=== PATIENT | female | born 1970 | race Caucasian/White ===

== ENCOUNTER 2017-02-15 05:47 | Outpatient (CLI) | payer OTHER ==
[~2017-02-15] VITALS: Ht 157.5 cm; Wt 122.5 kg
[~2017-02-15 05:47] MED LIST: ACET-2267 PO; ETODOLAC; HYDR-3816 PO; IBUP-1780 PO; OMEP20CA12 PO; VITAMIN D
[2017-02-15] MEDS ORDERED: OMEP40CA36 PO (10:43)
[2017-02-15] MEDS ORDERED: OXYB10TA PO (10:43)
[2017-02-15] MEDS ORDERED: CHOL20002 PO (10:43)
[2017-02-15] MEDS ORDERED: ALBU90AE IH (10:43)
[2017-02-15] MEDS ORDERED: CETI10TA17 PO (10:43)
[2017-02-15] MEDS ORDERED: FLUT9.9S NS (10:43)
== END 2017-02-15 10:51 ==
LOC: PREOP 05:47
PROVIDERS: ATTEND Surgery
DX: Z01.818 Encounter for other preprocedural examination (principal); K21.9 Gastro-esophageal reflux disease without esophagitis

== ENCOUNTER 2017-02-22 09:37 | Day surgery (SDC) | payer OTHER ==
[~2017-02-22] VITALS: Ht 157.5 cm; Wt 122.5 kg
[~2017-02-22 09:37] MED LIST changes: +ALBU90AE IH; +CETI10TA17 PO; +CHOL20002 PO; +FLUT9.9S NS; +OMEP40CA36 PO; +OXYB10TA PO
--- OUTSIDE RECORDS SUMMARY | 2017-02-22 09:41 | XMS REPORT | Continuity of Care Document ---
Author Author [facility] Address Unknown Phone Unavailable Allergies Active Description Code Type Severity Reaction Onset Reported/Identified Relationship to Patient Clinical Status Yes naproxen Drug Allergy N/A N/A 07/21/2013 Yes naproxen [id number] Drug Allergy Unknown N/A 02/15/2017 Medications There is no data. Problems Date Dx Coded Attending Type Code Diagnosis Diagnosed By 08/02/2008 FATMATA FERNANDES DO 296.33 MO DEPRESSIVE RECURRENT SEVERE W/O PSYCHOTIC BEHAVIOR 08/11/2008 FATMATA FERNANDES DO 296.30 MO DEPRESSIVE RECURRENT UNSPECIFIED 07/21/2013 FATMATA FERNANDES DO 461.0 ACUTE MAXILLARY SINUSITIS 07/21/2013 FATMATA FERNANDES DO 466.0 ACUTE BRONCHITIS 03/27/2015 GILBERT CHERRY MD Ot F17.210 NICOTINE DEPENDENCE, CIGARETTES, UNCOMPL 03/27/2015 GILBERT CHERRY MD Ot J43.9 EMPHYSEMA, UNSPECIFIED 03/27/2015 GILBERT CHERRY MD Ot K57.90 DVRTCLOS OF INTEST, PART UNSP, W/O PERF 03/27/2015 GILBERT CHERRY MD Ot K76.0 FATTY (CHANGE OF) LIVER, NOT ELSEWHERE C 03/27/2015 GILBERT CHERRY MD Ot K80.20 CALCULUS OF GALLBLADDER W/O CHOLECYSTITI 02/15/2017 NANETTE SHELL DO Ot K21.9 GASTRO-ESOPHAGEAL REFLUX DISEASE WITHOUT 02/15/2017 NANETTE SHELL DO Ot Z01.818 ENCOUNTER FOR OTHER PREPROCEDURAL EXAMIN 02/18/2017 NANETTE SHELL DO Ot K21.9 GASTRO-ESOPHAGEAL REFLUX DISEASE WITHOUT 02/18/2017 NANETTE SHELL DO Ot Z01.818 ENCOUNTER FOR OTHER PREPROCEDURAL EXAMIN Procedures There is no data. Results There is no data. Encounters ACCT No. Visit Date/Time Discharge Status Pt. Type Provider Facility Loc./Unit Complaint [id number] 07/21/2013 14:21:00 07/21/2013 23:59:59 CLS Outpatient FATMATA FERNANDES DO [id number] 02/15/2017 05:47:00 02/15/2017 10:51:00 DIS Outpatient NANETTE SHELL DO [facility] PREOP EGD [id number] 01/19/2017 13:00:00 01/19/2017 23:59:59 CLS Preadmit NANETTE SHELL DO [facility] ENDO REFLUX [id number] 03/27/2015 14:02:00 03/27/2015 23:59:59 CLS Emergency JO ANN FAUSTIN, GILBERT Ramirez [facility] ER ABD PAIN FATIGUE DARK STOOLS
[2017-02-22 09:43] VITALS: BP 145/92
[2017-02-22] MEDS ORDERED: LACTATED RINGERS 1,000 ML IV ONE (09:51)
[2017-02-22] MEDS ORDERED: MIDAZOLAM 5 MG/5 ML (VERSED) VIAL ONE (10:01)
[2017-02-22] MEDS ORDERED: proPOfol 200 MG/20 ML (DIPRIVAN) VIAL IV ONE (10:01)
--- NOTE | 2017-02-22 10:06 | Progress Note-Pre Operative ---
Pre-Operative Progress Note H&P Reviewed The H&P was reviewed, patient examined and no changes noted. Time Seen by Provider: 09:51 Date H&P Reviewed: Feb 22, 2017 Time H&P Reviewed: 09:53 Pre-Operative Diagnosis: Gastritis NANETTE SHELL DO Feb 22, 2017 10:06
[2017-02-22] MEDS ORDERED: LACTATED RINGERS 1,000 ML IV STA (10:22)
[2017-02-22] MEDS ORDERED: HURRICAINE EXT TUBE (BENZOCAINE) XX PRN (10:30)
[2017-02-22] MEDS ORDERED: LACTATED RINGERS 1,000 ML IV SCH (10:30)
[2017-02-22] MEDS ORDERED: HURRICAINE EXT TUBE (BENZOCAINE) XX ONE (10:30)
--- NOTE | 2017-02-22 10:39 | Progress Note-Post Operative ---
Post-Operative Progess Note Surgeon (s)/Commercial Pest Control Technician (s) Surgeon NANETTE SHELL DO Commercial Pest Control Technician: none Pre-Operative Diagnosis Gastritis Post-Operative Diagnosis Gastritis Hiatal Hernia ? Ulcer Procedure & Operative Findings Date of Procedure 02/22/17 Procedure Performed/Findings EGD with bx Anesthesia Type IV sedation by LIAISON INSPECTION LABORATORY ASSISTANT Estimated Blood Loss Estimated blood loss (mL): scant Specimens/Packing Specimens Removed Duodenal bx Antral Bx Bx of ??ulcer NANETTE SHELL DO Feb 22, 2017 10:39
--- NOTE | 2017-02-22 10:41 | Endoscopy Discharge Instruct ---
Endo Procedure/Findings Findings 1.: Gastritis 2.: Hiatal Hernia 3.: Gastric Ulcer (possibly) Discharge Instructions - Activity: You might feel a little sleepy until tomorrow. This is due to the medicine you received to relax you. Until tomorrow, you should: NOT drive a car, operate machinery or power tools. NOT drink any alcoholic beverages. NOT make any important decisions or sign importortant papers. Do not return to work until tomorrow, unless otherwise instructed. Resume previous activities tomorrow. Diet: Start by taking liquids. If you tolerate liquids, advance to solid food. make appointment for sometime after dario. Notify Physician - If you experience excessive bleeding, unusual abdominal pain, fever, or chest pain, contact your doctor immediately. Follow-Up: - I have received and understand the above instructions and will call my doctor if I have any further questions. Patient Signature Date Nurse Signature Other (Relationship) NANETTE SHELL DO Feb 22, 2017 10:41
[2017-02-22 10:50] VITALS: BP 127/57
[2017-02-22 11:15] VITALS: BP 125/55
[2017-02-22 11:37] VITALS: BP 125/55
[2017-02-22] MEDS ORDERED: HURRICAINE EXT TUBE (BENZOCAINE) ONE (11:43)
--- NOTE | 2017-02-22 19:27 | OPERATIVE REPORT ---
DATE OF SERVICE: PREOPERATIVE DIAGNOSIS: Gastritis. POSTOPERATIVE DIAGNOSES: 1. Gastritis. 2. Hiatal hernia. 3. Possible gastric ulcer. PROCEDURE: EGD with biopsy. SURGEON: Dr. Mike. RADIO ASSEMBLER: None. ANESTHESIA: IV sedation by PNEUMATIC JACKETER. SPECIMEN: One biopsy from the duodenum, one biopsy from the antrum, and one biopsy of a possible ulcer. BLOOD LOSS: Scant. FLUIDS: Per anesthesia. POSTOPERATIVE CONDITION: Stable. INDICATION FOR PROCEDURE: The patient is a 46-year-old female who has been getting increasing reflux symptoms, heartburn and needed a workup. FINDINGS: The patient had some gastritis, hiatal hernia, questionable ulcer. Biopsies were obtained. PROCEDURE NOTE: After informed consent was obtained, the patient was brought to the endoscopy suite, placed in the bed in the left lateral decubitus position. She was administered IV sedation. During the case, she was monitored by the PNEUMATIC JACKETER the entire time, heart rate, blood pressure and pulse ox and the scope was inserted down the mouth into the esophagus and down into the stomach. In the stomach, I saw some gastritis and erythema, pushed into the first portion of the duodenum and also a little bit of erythema here and possibly duodenitis; did a biopsy and then pulled back and got a biopsy of the antrum, then retroflexed, could see a small hiatal hernia and then saw a little almost like pinhole opening, which looks like it could have been an ulcer, did a biopsy of this area and then started slowly pulling back, pulled into the esophagus. GE junction looked good up the esophagus and esophagus looked good out of the mouth. The patient tolerated the procedure and she was recovered in the endoscopy suite. Job ID: [id number] DocumentID: [id number] Dictated Date: 02/22/2017 10:44:34 Fuse Cutter Date: 02/22/2017 16:47:02 Dictated By: NANETTE MIKE DO
== END 2017-02-22 11:30 | disposition home or self-care (01) ==
LOC: ENDO 09:37
PROVIDERS: ATTEND Surgery
DX: K29.70 Gastritis, unspecified, without bleeding (principal); K44.9 Diaphragmatic hernia without obstruction or gangrene; F17.210 Nicotine dependence, cigarettes, uncomplicated

== ENCOUNTER → 2017-04-30 | Outpatient (CLI) | payer OTHER ==
[~2017-04-30] MED LIST changes: +HYDR-34 PO; -HYDR-3816 PO
--- NOTE | 2017-04-30 09:14 | Diagnostic Imaging Report ---
INDICATION: Productive cough. TIME OF EXAM: 9:11 AM No prior studies are available for comparison. FINDINGS: The heart size is normal. There is a focal area of patchy parenchymal density along the left heart border in the left base. This may represent an area of infiltrate or atelectasis. The right lung is clear. No effusion or pneumothorax is seen. IMPRESSION: Patchy lingular infiltrate or atelectasis. Dictated by: Dictated on workstation # [id number]
== END ==
LOC: RAD 08:39
PROVIDERS: ATTEND Family Medicine
DX: R05 Cough (principal)
CPT/HCPCS: 71046

== ENCOUNTER → 2017-06-25 | Outpatient (CLI) | payer OTHER ==
--- NOTE | 2017-06-25 09:22 | Diagnostic Imaging Report ---
INDICATION: Cough and pneumonia for 3 months. Time of exam 8:46 AM Correlation is made with prior study from 04/30/2017. The heart size is normal. The lungs are clear on today's study. No infiltrates are detected. No effusion or pneumothorax is seen. There is some hyperinflation suggestive of COPD. IMPRESSION: Resolution of previously noted infiltrates. No acute feature is detected. Dictated by: Dictated on workstation # [id number]
== END ==
LOC: RAD 08:17
PROVIDERS: ATTEND Nurse Practitioner
DX: J18.9 Pneumonia, unspecified organism (principal)
CPT/HCPCS: 71046

== ENCOUNTER 2018-07-30 18:40 | Emergency (ER) | payer OTHER | END 2018-07-30 21:07 | disposition home or self-care (01) | LOC: ER 18:40 ==

== ENCOUNTER 2018-08-09 14:31 | Emergency (ER) | payer OTHER ==
[~2018-08-09] VITALS: Ht 167.6 cm; Wt 117.9 kg
[~2018-08-09 14:31] MED LIST changes: +BENZ100C18 PO; +BUDE90AE2 IH; +CEFD300C3 PO; +D-ME118S7 PO; +FLUC200T PO; +METH4TAB PO
[2018-08-09] MEDS ORDERED: RT-ALBUTEROL/IPRATROPIUM 3 ML (DUONEB) VIAL ONE (14:33)
[2018-08-09] MEDS ORDERED: RT-ALBUTEROL SULF 2.5 MG/3 ML PRE-MIX VIAL ONE (14:33)
--- NOTE | 2018-08-09 14:39 | ED Dyspnea ---
General Stated Complaint: SOA Source of Information: Patient Exam Limitations: No Limitations History of Present Illness Date Seen by Provider: Aug 09, 2018 Time Seen by Provider: 14:36 Initial Comments To ER by private vehicle from home with reports of Dyspnea. She was seen here on 07/30/18 and diagnosed with bronchitis. She reports persistent chills, wheezing shortness of breath and a productive cough. She states that she does smoke cigarettes and has several burn montesinos on her shirt. Does not wear oxygen at home. Does have a nebulizer at home but is currently inside her truck which is in the shop so she's been unable to use it Severity: Moderate Activities at Onset: None Associated Symptoms: Cough, Fever, Wheezing Allergies and Home Medications Allergies Coded Allergies: naproxen (Verified Allergy, Unknown, 07/30/18) Home Medications Acetaminophen 500 Mg Tablet, 1,000 MG PO BID, (Reported) Albuterol Sulfate 90 Mcg Aer.pow.ba, 1-2 PUFF IH PRN, (Reported) Benzonatate 100 Mg Capsule, 1-2 TAB PO TID Prescribed by: ALANA SELF on 07/30/182012 Budesonide 90 Mcg Aer.pow.ba, 90 MCG IH BID Prescribed by: ALANA SELF on 07/30/182013 Cefdinir 300 Mg Capsule, 300 MG PO BID Prescribed by: ALANA SELF on 07/30/182012 Cetirizine HCl 10 Mg Tablet, 10 MG PO DAILY, (Reported) Cholecalciferol (Vitamin D3) 2,000 Unit Capsule, 2,000 UNIT PO DAILY, (Reported) D-Methorphan Hb/Prometh HCl 118 Ml Syrup, 1-2 TSP PO Q4H Prescribed by: ALANA SELF on 07/30/182012 Fluconazole 200 Mg Tablet, 200 MG PO DAILY Prescribed by: AALNA SELF on 07/30/182012 Fluticasone Propionate 9.9 Ml Zapata.susp, 1 SPRAY NS DAILY, (Reported) Fluticasone Propionate 9.9 Ml Zapata.susp, 2 SPRAYS NS BID Prescribed by: ALANA SELF on 07/30/182012 Hydrocodone Bit/Acetaminophen 1 Each Tablet, 1 EACH PO Q6H Prescribed by: GILBERT CHERRY on 03/27/15 1612 Hydrocodone/Acetaminophen 1 Each Tablet, 1 TAB PO Q8H PRN for COUGH Prescribed by: ZELALEM FRANKLIN on 08/09/181546 Ibuprofen 800 Mg Tablet, 800 MG PO Q12H PRN for PAIN, (Reported) Methylprednisolone 4 Mg Tab.ds.pk, 4 MG PO UD Prescribed by: ALANA SELF on 07/30/182012 Omeprazole 20 Mg Capsule.dr, 40 MG PO BID, (Reported) Omeprazole 40 Mg Capsule.dr, 40 MG PO DAILY, (Reported) Oxybutynin Chloride 10 Mg Tab.er.24, 10 MG PO DAILY, (Reported) Prednisone 10 Mg Tab.ds.pk, 10 MG PO DAILY Take 6 tabs(60mg)daily,decrease by 1 tab(10MG)daily. Prescribed by: ZELALEM FRANKLIN on 08/09/181546 Patient Home Medication List Home Medication List Reviewed: Yes Review of Systems Review of Systems Constitutional: see HPI, chills, fever EENTM: see HPI Respiratory: see HPI, cough, dyspnea on exertion, short of breath, wheezing Cardiovascular: no symptoms reported Genitourinary: no symptoms reported Musculoskeletal: no symptoms reported Skin: no symptoms reported Psychiatric/Neurological: No Symptoms Reported Past Dtgmqni-Hrprir-Hhwqaz Hx Patient Social History Type Used: Cigarettes Recent Foreign Travel: No Contact w/Someone Who Travel: No Recent Hopitalizations: No Seasonal Allergies Seasonal Allergies: Yes Past Medical History Surgeries: Yes (HYST/BSO 1999) Gallbladder, Hysterectomy, Oophorectomy Respiratory: Yes Pneumonia, Chronic Bronchitis Cardiac: Yes (MURMUR SINCE ) Heart Murmur Neurological: Yes Headaches /Migraines Reproductive Disorders: Yes SURFACE HYDROLOGIST History: Hysterectomy Sexually Transmitted Disease: Yes (HX HERPES) HIV/AIDS: No Genitourinary: Yes Bladder Infection Gastrointestinal: Yes Gastroesophageal Reflux Musculoskeletal: Yes Arthritis Endocrine: Yes (OBESITY) HEENT: No Loss of Vision: Bilateral Cancer: Yes Ovarian Did You Recieve Any Treatments: Yes What Type of Treatment Did You: Surgical Intervention Psychosocial: No Integumentary: No Blood Disorders: No Adverse Reaction/Blood Tranf: No (N/A) Physical Exam Vital Signs Vital Signs - First Documented 08/09/18 14:33 Temp 95.6 Pulse 82 Resp 18 B/P (MAP) 137/78 (97) Pulse Ox 93 O2 Delivery Room Air Capillary Refill : Height, Weight, BMI Height: 5'2.00" Weight: 270lbs. 0.0oz. 122.296013mw; 49.4 BMI Method:Stated General Appearance: No Apparent Distress, WD/WN, Obese, Other (oxygen saturation 93% on room air on arrival to ER.) HEENT: PERRL/EOMI Respiratory: No Accessory Muscle Use, No Respiratory Distress, Decreased Breath Sounds, Wheezing Cardiovascular: Regular Rate, Rhythm, Normal Peripheral Pulses Gastrointestinal: Normal Bowel Sounds, Non Tender, Soft Extremity: Normal Capillary Refill, Normal Inspection Neurologic/Psychiatric: Alert, Oriented x3 Skin: Normal Color, Warm/Dry Progress/Results/Core Measures Results/Orders Lab Results Laboratory Tests Test 08/09/18 14:38 Range/Units White Blood Count 10.1 4.3-11.0 10^3/uL Red Blood Count 4.60 4.35-5.85 10^6/uL Hemoglobin 15.8 11.5-16.0 G/DL Hematocrit 48 35-52 % Mean Corpuscular Volume 104 H 80-99 FL Mean Corpuscular Hemoglobin 34 25-34 PG Mean Corpuscular Hemoglobin Concent 33 32-36 G/DL Red Cell Distribution Width 17.3 H 10.0-14.5 % Platelet Count 151 130-400 10^3/uL Mean Platelet Volume 9.9 7.4-10.4 FL Neutrophils (%) (Auto) 61 42-75 % Lymphocytes (%) (Auto) 30 12-44 % Monocytes (%) (Auto) 7 0-12 % Eosinophils (%) (Auto) 2 0-10 % Basophils (%) (Auto) 0 0-10 % Neutrophils # (Auto) 6.2 1.8-7.8 X 10^3 Lymphocytes # (Auto) 3.0 1.0-4.0 X 10^3 Monocytes # (Auto) 0.7 0.0-1.0 X 10^3 Eosinophils # (Auto) 0.2 0.0-0.3 10^3/uL Basophils # (Auto) 0.0 0.0-0.1 10^3/uL Sodium Level 140 135-145 MMOL/L Potassium Level 3.7 3.6-5.0 MMOL/L Chloride Level 103 98-107 MMOL/L Carbon Dioxide Level 29 21-32 MMOL/L Anion Gap 8 5-14 MMOL/L Blood Urea Nitrogen 6 L 7-18 MG/DL Creatinine 0.83 0.60-1.30 MG/DL Estimat Glomerular Filtration Rate > 60 BUN/Creatinine Ratio 7 Glucose Level 83 70-105 MG/DL Calcium Level 9.9 8.5-10.1 MG/DL Corrected Calcium 9.8 8.5-10.1 MG/DL Total Bilirubin 0.4 0.1-1.0 MG/DL Aspartate Amino Transf (AST/SGOT) 15 5-34 U/L Alanine Aminotransferase (ALT/SGPT) 22 0-55 U/L Alkaline Phosphatase 81 40-136 U/L Total Protein 7.7 6.4-8.2 GM/DL Albumin 4.1 3.2-4.5 GM/DL My Orders Orders - ZELALEM FRANKLIN VENDOR MANAGEMENT CONSULTANT Cbc With Automated Diff (08/09/18 14:35) Comprehensive Metabolic Panel (08/09/18 14:35) Chest 1 View, Ap/Pa Only (08/09/18 14:35) Albuterol/Ipra Inhalation Soln (Duoneb I (08/09/18 14:45) Svn Small Volume Nebulizer (08/09/18 14:35) Albuterol Pre-Mix Nebs (Rt) (Proventil (08/09/18 14:45) Svn Small Volume Nebulizer (08/09/18 14:35) Hydrocodone/Apap 5/325 Tablet (Lortab 5 (08/09/18 15:15) Medications Given in ED Current Medications Medications Dose Ordered Sig/Carlos Route Start Time Stop Time Status Last Admin Dose Admin Acetaminophen/ Hydrocodone Bitart 1 tab ONCE ONCE PO 08/09/18 15:15 08/09/18 15:16 DC 08/09/18 15:09 1 TAB Albuterol/ Ipratropium 3 ml ONCE ONCE INH 08/09/18 14:45 08/09/18 14:46 DC 08/09/18 14:42 3 ML Vital Signs/I&O 08/09/18 08/09/18 14:33 14:45 Temp 95.6 Pulse 82 Resp 18 B/P (MAP) 137/78 (97) Pulse Ox 93 91 O2 Delivery Room Air Room Air Departure Communication (Admissions) 0757-patient feels as though she is breathing easier after a DuoNeb and 2 albuterol, however oxygen saturation has dropped from 93% to 89%Room air, post breathing treatment. Discussed with her admission for observation and supplemental oxygen as well as breathing treatments. She states she would much rather go home as it would be logistically troubling to be admitted to the hospital while caring for her grandkids. She is still on Omnicef 300 mg twice a day, I'll restart a steroid taper, she states she can go by the [employer] body shop and get the nebulizer out of her car. Impression Primary Impression: COPD with exacerbation Disposition: AGAINST MEDICAL ADVICE Condition: Against Medical Advice Departure-Patient Inst. Decision time for Depature: 15:44 Referrals: NO,LOCAL PHYSICIAN (PCP/Family) Primary Care Physician Patient Instructions: Chronic Obstructive Pulmonary Disease (COPD), Including Emphysema Add. Discharge Instructions: 1. Use your nebulizer every 4 hours for the next few days. Return to ER for any worsening such as fevers increasing shortness of breath. Call your family doctor tomorrow to make an appointment to be seen later this week for recheck. Scripts Hydrocodone/Acetaminophen (Kennett 5-325 Tablet) 1 Each Tablet 1 TAB PO Q8H PRN for COUGH MDD 10 TABS for 7 Days, #10 TAB Prov: ZELALEM FRANKLIN APRN 08/09/18 Prednisone (Prednisone) 10 Mg Tab.ds.pk 10 MG PO DAILY, #21 EA Take 6 tabs(60mg)daily,decrease by 1 tab(10MG)daily. Prov: ZELALEM FRANKLIN APRN 08/09/18 ZELALEM FRANKLIN APRN Aug 09, 2018 14:39
[2018-08-09] MEDS ORDERED: RT-ALBUTEROL SULF 2.5 MG/3 ML PRE-MIX VIAL INH SCH (14:45)
[2018-08-09] MEDS ORDERED: RT-ALBUTEROL/IPRATROPIUM 3 ML (DUONEB) VIAL INH ONE (14:45)
[2018-08-09 14:49] LABS: BASOPHILS % (AUTO) 0 % (0-10); EOSINOPHILS # (AUTO) 0.2 10^3/uL (0.0-0.3); EOSINOPHILS % (AUTO) 2 % (0-10); HEMATOCRIT 48 % (35-52); HEMOGLOBIN 15.8 G/DL (11.5-16.0); LYMPHOCYTES % (AUTO) 30 % (12-44); MEAN CORPUSCULAR HEMOGLOBIN 34 PG (25-34); MEAN CORPUSCULAR HGB CONC 33 G/DL (32-36); MEAN CORPUSCULAR VOLUME 104 FL (80-99); MEAN PLATELET VOLUME 9.9 FL (7.4-10.4); MONOCYTES # (AUTO) 0.7 X 10^3 (0.0-1.0); MONOCYTES % (AUTO) 7 % (0-12); NEUTROPHILS # (AUTO) 6.2 X 10^3 (1.8-7.8); NEUTROPHILS % (AUTO) 61 % (42-75); PLATELET COUNT 151 10^3/uL (130-400); RED CELL DISTRIBUTION WIDTH 17.3 % (10.0-14.5); WHITE BLOOD COUNT 10.1 10^3/uL (4.3-11.0)
[2018-08-09 15:03] LABS: ALANINE AMINOTRANSFERASE 22 U/L (0-55); ALBUMIN 4.1 GM/DL (3.2-4.5); ALKALINE PHOSPHATASE 81 U/L (40-136); BILIRUBIN,TOTAL 0.4 MG/DL (0.1-1.0); BUN/CREATININE RATIO 7; CALCIUM 9.9 MG/DL (8.5-10.1); CARBON DIOXIDE 29 MMOL/L (21-32); CHLORIDE 103 MMOL/L (98-107); CREATININE SERUM 0.83 MG/DL (0.60-1.30); GFR ESTIMATED > 60; GLUCOSE 83 MG/DL (70-105); POTASSIUM 3.7 MMOL/L (3.6-5.0); SODIUM 140 MMOL/L (135-145); TOTAL PROTEIN 7.7 GM/DL (6.4-8.2)
--- NOTE | 2018-08-09 15:09 | Diagnostic Imaging Report ---
INDICATION: Cough. TIME OF EXAM: 2:47 p.m. COMPARISON: Correlation is made with prior study of 07/30/2018. The heart size is normal. The pulmonary vascularity is unremarkable. The lungs are clear. No infiltrate, effusion or pneumothorax is detected. IMPRESSION: No acute cardiopulmonary process is detected. Dictated by: Dictated on workstation # [id number]
[2018-08-09] MEDS ORDERED: HYDROcodone/APAP 5 MG/325 MG (LORTAB) TAB PO ONE (15:15)
--- NOTE | 2018-08-09 15:40 | NUR ---
pt spo2 on room air 88 percent pt placed on 2 L spo2 increased to 92 percent. Beka Jacques APRN notified pt of admission, pt declined admission due to person issues. RN encouraged pt to stay. pt strongly against. PBates FOXER in room.
[2018-08-09] MEDS ORDERED: PRED10TA22 PO (15:47)
[2018-08-09] MEDS ORDERED: HYDR-4226 PO (15:47)
[2018-08-09 15:52] VITALS: BP 137/78
--- NOTE | 2018-08-09 15:55 | NUR ---
pt ambulatory to home, sob and cough with ambulation
--- OUTSIDE RECORDS SUMMARY | 2018-08-09 20:11 | XMS REPORT | Clinical Summary ---
Author Author [facility] Organization [facility] Address Unknown Phone Unavailable Care Team Providers Care Spin Tank Tender Name Role Phone PCP Unavailable Allergies Not on File Current Medications Not on file Active Problems Not on file Social History Tobacco Use Types Packs/Day Years Used Date Never Assessed Sex Assigned at Date Recorded Not on file Last Filed Vital Signs Not on file Plan of Treatment Not on file Results Not on filefrom Last 3 Months
--- OUTSIDE RECORDS SUMMARY | 2018-08-09 20:11 | XMS REPORT | Continuity of Care Document ---
Author Organization Unknown Address Unknown Allergies Active Description Code Type Severity Reaction Onset Reported/Identified Relationship to Patient Clinical Status Yes naproxen Drug Allergy N/A N/A 07/21/2013 Yes naproxen [id number] Drug Allergy Unknown N/A 07/30/2018 Medications There is no data. Problems Date Dx Coded Attending Type Code Diagnosis Diagnosed By 08/02/2008 FATMATA FERNANDES DO 296.33 MO DEPRESSIVE RECURRENT SEVERE W/O PSYCHOTIC BEHAVIOR 08/11/2008 FATMATA FERNANDES DO 296.30 MO DEPRESSIVE RECURRENT UNSPECIFIED 07/21/2013 FATMATA FERNANDES DO 461.0 ACUTE MAXILLARY SINUSITIS 07/21/2013 FATMATA FERNANDES DO 466.0 ACUTE BRONCHITIS 03/27/2015 JO ANN FAUSTIN, GILBERT Ramirez Ot F17.210 NICOTINE DEPENDENCE, CIGARETTES, UNCOMPL 03/27/2015 JO ANN FAUSTIN, GILBERT Ramirez Ot J43.9 EMPHYSEMA, UNSPECIFIED 03/27/2015 GILBERT CHERRY MD Ot K57.90 DVRTCLOS OF INTEST, PART UNSP, W/O PERF 03/27/2015 GILBERT CHERRY MD Ot K76.0 FATTY (CHANGE OF) LIVER, NOT ELSEWHERE C 03/27/2015 GILBERT CHERRY MD Ot K80.20 CALCULUS OF GALLBLADDER W/O CHOLECYSTITI 02/15/2017 NANETTE SHELL DO B Ot K21.9 GASTRO-ESOPHAGEAL REFLUX DISEASE WITHOUT 02/15/2017 ZENA SHELL DOIC B Ot Z01.818 ENCOUNTER FOR OTHER PREPROCEDURAL EXAMIN 02/18/2017 ZENA SHELL DOIC B Ot K21.9 GASTRO-ESOPHAGEAL REFLUX DISEASE WITHOUT 02/18/2017 ZENA SHELL DOIC B Ot Z01.818 ENCOUNTER FOR OTHER PREPROCEDURAL EXAMIN 02/21/2017 NANETTE SHELL DO B Ot K21.9 GASTRO-ESOPHAGEAL REFLUX DISEASE WITHOUT 02/21/2017 ZENA SHELL DOIC B Ot Z01.818 ENCOUNTER FOR OTHER PREPROCEDURAL EXAMIN 02/22/2017 NANETTE SHELL DO Ot F17.210 NICOTINE DEPENDENCE, CIGARETTES, UNCOMPL 02/22/2017 NANETTE SHELL DO Ot K29.70 GASTRITIS, UNSPECIFIED, WITHOUT BLEEDING 02/22/2017 NANETTE SHELL DO Ot K44.9 DIAPHRAGMATIC HERNIA WITHOUT OBSTRUCTION 05/03/2017 RADHA FAUSTIN, KELLEN J Ot R05 COUGH 06/28/2017 KIMBERLEY SORTO IMPROVEMENT DIRECTOR-DRAGGER Ot J18.9 PNEUMONIA, UNSPECIFIED ORGANISM 07/01/2017 KIMBERLEY SORTO IMPROVEMENT DIRECTOR-DRAGGER Ot J18.9 PNEUMONIA, UNSPECIFIED ORGANISM 08/26/2017 RADHA FAUSTIN, KELLEN J Ot R05 COUGH 08/26/2017 KIMBERLEY SORTO IMPROVEMENT DIRECTOR-DRAGGER Ot J18.9 PNEUMONIA, UNSPECIFIED ORGANISM 11/05/2017 RADHA FAUSTIN, KELLEN J Ot R05 COUGH 11/05/2017 KIMBERLEY SORTO IMPROVEMENT DIRECTOR-DRAGGER Ot J18.9 PNEUMONIA, UNSPECIFIED ORGANISM 07/30/2018 ALANA SELF DO Ot E66.9 OBESITY, UNSPECIFIED 07/30/2018 FRANSISCO SELF DOA K Ot F17.210 NICOTINE DEPENDENCE, CIGARETTES, UNCOMPL 07/30/2018 ALANA SELF DO Ot G43.909 MIGRAINE, UNSP, NOT INTRACTABLE, WITHOUT 07/30/2018 FRANSISCO SELF DOA K Ot J06.9 ACUTE UPPER RESPIRATORY INFECTION, UNSPE 07/30/2018 ALANA SELF DO Ot J43.9 EMPHYSEMA, UNSPECIFIED 07/30/2018 ALANA SELF DO Ot K21.9 GASTRO-ESOPHAGEAL REFLUX DISEASE WITHOUT 07/30/2018 FRANSISCO SELF DOA Annelise Ot R06.02 SHORTNESS OF BREATH 07/30/2018 FRANSISCO SELF DOA Annelise Ot Z68.42 BODY MASS INDEX (BMI) 45.0-49.9, ADULT 07/30/2018 FRANSISCO SELF DOA Annelise Ot Z79.51 MANAGER OF SUSTAINABILITY (CURRENT) USE OF INHALED STERO 07/30/2018 ALANA SELF DO Ot Z79.52 MANAGER OF SUSTAINABILITY (CURRENT) USE OF SYSTEMIC STER 07/30/2018 ALANA SELF DO Ot Z85.43 PERSONAL HISTORY OF MALIGNANT NEOPLASM O [facility]/30[facility] PERSONAL HISTORY OF OTHER INFECTIOUS AND 07/30/2018 [facility] Z87.01 PERSONAL HISTORY OF PNEUMONIA (RECURRENT 07/30/2018 [facility] Z87.448 PERSONAL HISTORY OF OTHER DISEASES OF UR 07/30/2018 [facility] Z88.8 ALLERGY STATUS TO OTH DRUG/MEDS/BIOL SUB 07/30/2018 [facility] ALANA SHELTON Ot Z90.710 ACQUIRED ABSENCE OF BOTH CERVIX AND UTER 07/30/2018 [facility] Z98.890 OTHER SPECIFIED POSTPROCEDURAL STATES 08/04/2018 ALANA SELF DO Ot E66.9 OBESITY, UNSPECIFIED 08/04/2018 [facility] F17.210 NICOTINE DEPENDENCE, CIGARETTES, UNCOMPL 08/04/2018 [facility] G43.909 MIGRAINE, UNSP, NOT INTRACTABLE, WITHOUT 08/04/2018 [facility] J06.9 ACUTE UPPER RESPIRATORY INFECTION, UNSPE 08/04/2018 [facility] J43.9 EMPHYSEMA, UNSPECIFIED 08/04/2018 [facility] K21.9 GASTRO-ESOPHAGEAL REFLUX DISEASE WITHOUT 08/04/2018 [facility] R06.02 SHORTNESS OF BREATH 08/04/2018 [facility] Z68.42 BODY MASS INDEX (BMI) 45.0-49.9, ADULT 08/04/2018 [facility] ALANA SHELTON Ot Z79.51 MANAGER OF SUSTAINABILITY (CURRENT) USE OF INHALED STERO 08/04/2018 [facility] ALANA SHELTON Ot Z79.52 MANAGER OF SUSTAINABILITY (CURRENT) USE OF SYSTEMIC STER 08/04/2018 [facility] Z85.43 PERSONAL HISTORY OF MALIGNANT NEOPLASM O 08/04/2018 [facility] Z86.19 PERSONAL HISTORY OF OTHER INFECTIOUS AND 08/04/2018 [facility] Z87.01 PERSONAL HISTORY OF PNEUMONIA (RECURRENT 08/04/2018 [facility] Ot Z87.448 PERSONAL HISTORY OF OTHER DISEASES OF UR 08/04/2018 ALANA SELF DO Ot Z88.8 ALLERGY STATUS TO OTH DRUG/MEDS/BIOL SUB 08/04/2018 ALANA SELF DO Ot Z90.710 ACQUIRED ABSENCE OF BOTH CERVIX AND UTER 08/04/2018 ALANA SELF DO Ot Z98.890 OTHER SPECIFIED POSTPROCEDURAL STATES Procedures There is no data. Results Test Result Range Complete urinalysis with reflex to culture - 07/30/18 18:57 Urine color determination YELLOW NRG Urine clarity determination CLEAR NRG Urine pH measurement by test strip 6 5-9 Specific gravity of urine by test strip 1.005 1.016-1.022 Urine protein assay by test strip, semi-quantitative NEGATIVE NEGATIVE Urine glucose detection by automated test strip NEGATIVE NEGATIVE Erythrocytes detection in urine sediment by light microscopy 1+ NEGATIVE Urine ketones detection by automated test strip NEGATIVE NEGATIVE Urine nitrite detection by test strip NEGATIVE NEGATIVE Urine total bilirubin detection by test strip NEGATIVE NEGATIVE Urine urobilinogen measurement by automated test strip (mass/volume) NORMAL NORMAL Urine leukocyte esterase detection by dipstick NEGATIVE NEGATIVE Automated urine sediment erythrocyte count by microscopy (number/high power field) NONE NRG Automated urine sediment leukocyte count by microscopy (number/high power field) NONE NRG Bacteria detection in urine sediment by light microscopy NEGATIVE NRG Squamous epithelial cells detection in urine sediment by light microscopy 2-5 NRG Crystals detection in urine sediment by light microscopy NONE NRG Casts detection in urine sediment by light microscopy NONE NRG Mucus detection in urine sediment by light microscopy NEGATIVE NRG Complete urinalysis with reflex to culture CULTURE PENDING NRG Bacterial urine culture - 07/30/18 18:57 Bacterial urine culture [id number] NRG COLONY COUNT PREDOMINANCE NRG FTX;REPORTABLE SUSCEPTIBILITY REPORTED 08-01-18, 1105. [facility] Sensitivity Panel - 07/30/18 18:57 Gentamicin susceptibility test by minimum inhibitory concentration <= NRG Trimethoprim/sulfamethoxazole susceptibility test by minimum inhibitoryconcentration <= NRG Levofloxacin susceptibility test by minimum inhibitory concentration <= NRG Ampicillin susceptibility test by minimum inhibitory concentration <= NRG Cefazolin susceptibility test by minimum inhibitory concentration <= NRG Ceftriaxone susceptibility test by minimum inhibitory concentration <= NRG Ciprofloxacin susceptibility test by minimum inhibitory concentration <= NRG Meropenem susceptibility test by minimum inhibitory concentration <= NRG Nitrofurantoin susceptibility test by minimum inhibitory concentration <= NRG Amoxicillin and clavulanate potassium [facility] <= NRG Complete blood count (CBC) with automated white blood cell (WBC) differential - 07/30/18 19:00 Blood leukocytes automated count (number/volume) 10.2 10*3/uL 4.3-11.0 Blood erythrocytes automated count (number/volume) 4.31 10*6/uL 4.35-5.85 Venous blood hemoglobin measurement (mass/volume) 14.9 g/dL 11.5-16.0 Blood hematocrit (volume fraction) 44 % 35-52 Automated erythrocyte mean corpuscular volume 101 [foz_us] 80-99 Automated erythrocyte mean corpuscular hemoglobin (mass per erythrocyte) 35 pg 25-34 Automated erythrocyte mean corpuscular hemoglobin concentration measurement (mass/volume) 34 g/dL 32-36 Automated erythrocyte distribution width ratio 16.1 % 10.0- 14.5 Automated blood platelet count (count/volume) 168 10*3/uL 130-400 Automated blood platelet mean volume measurement 10.0 [foz_us] 7.4-10.4 Automated blood neutrophils/100 leukocytes 60 % 42-75 Automated blood lymphocytes/100 leukocytes 30 % 12-44 Blood monocytes/100 leukocytes 8 % 0-12 Automated blood eosinophils/100 leukocytes 2 % 0-10 Automated blood basophils/100 leukocytes 0 % 0-10 Blood neutrophils automated count (number/volume) 6.1 10*3 1.8-7.8 Blood lymphocytes automated count (number/volume) 3.0 10*3 1.0-4.0 Blood monocytes automated count (number/volume) 0.8 10*3 0.0- 1.0 Automated eosinophil count 0.2 10*3/uL 0.0-0.3 Automated blood basophil count (count/volume) 0.0 10*3/uL 0.0-0.1 Blood lactic acid measurement (moles/volume) - 07/30/18 19:00 Blood lactic acid measurement (moles/volume) 1.24 mmol/L 0.50- 2.00 PT panel in platelet poor plasma by coagulation assay - 07/30/18 19:00 Prothrombin time (PT) in platelet poor plasma by coagulation assay 13.0 s 12.2-14.7 INR in platelet poor plasma or blood by coagulation assay 0.9 0.8-1.4 Activated partial thromboplastin time (aPTT) in platelet poor plasma bycoagulation assay - 07/30/18 19:00 Activated partial thromboplastin time (aPTT) in platelet poor plasma bycoagulation assay 31 s 24-35 Comprehensive metabolic panel - 07/30/18 19:00 Serum or plasma sodium measurement (moles/volume) 140 mmol/L 135-145 Serum or plasma potassium measurement (moles/volume) 3.8 mmol/L 3.6-5.0 Serum or plasma chloride measurement (moles/volume) 103 mmol/L 98-107 Carbon dioxide 24 mmol/L 21-32 Serum or plasma anion gap determination (moles/volume) 13 mmol/L 5-14 Serum or plasma urea nitrogen measurement (mass/volume) 9 mg/dL 7-18 Serum or plasma creatinine measurement (mass/volume) 0.89 mg/dL 0.60-1.30 Serum or plasma urea nitrogen/creatinine mass ratio 10 NRG Serum or plasma creatinine measurement with calculation of estimated glomerular filtration rate > NRG Serum or plasma glucose measurement (mass/volume) 85 mg/dL 70-105 Serum or plasma calcium measurement (mass/volume) 9.7 mg/dL 8.5-10.1 Serum or plasma total bilirubin measurement (mass/volume) 0.5 mg/dL 0.1-1.0 Serum or plasma alkaline phosphatase measurement (enzymatic activity/volume) 100 U/L 40-136 Serum or plasma aspartate aminotransferase measurement (enzymatic activity/volume) 18 U/L 5-34 Serum or plasma alanine aminotransferase measurement (enzymatic activity/volume) 20 U/L 0-55 Serum or plasma protein measurement (mass/volume) 7.7 g/dL 6.4-8.2 Serum or plasma albumin measurement (mass/volume) 4.0 g/dL 3.2-4.5 CALCIUM CORRECTED 9.7 mg/dL 8.5-10.1 Bacterial blood culture - 07/30/18 19:00 Bacterial blood culture [facility] Influenza virus A and B antigen detection - 07/30/18 19:14 FLU RESULT NEGATIVE FOR INFLUENZA A AND B ANTIGENS BY IA [facility] Bacterial blood culture - 07/30/18 19:15 Bacterial blood culture NG [facility] Sputum Gram stain - 07/30/18 21:05 Sputum Gram stain [id number]. [facility] Bacterial sputum culture - 05/25/19 21:05 QUANTITY OF GROWTH . [facility] Bacterial sputum culture USUAL RESP G Complete blood count (CBC) with automated white blood cell (WBC) differential - 08/09/18 14:38 Blood leukocytes automated count (number/volume) 10.1 10*3/uL 4.3-11.0 Blood erythrocytes automated count (number/volume) 4.60 10*6/uL 4.35-5.85 Venous blood hemoglobin measurement (mass/volume) 15.8 g/dL 11.5-16.0 Blood hematocrit (volume fraction) 48 % 35-52 Automated erythrocyte mean corpuscular volume 104 [foz_us] 80-99 Automated erythrocyte mean corpuscular hemoglobin (mass per erythrocyte) 34 pg 25-34 Automated erythrocyte mean corpuscular hemoglobin concentration measurement (mass/volume) 33 g/dL 32-36 Automated erythrocyte distribution width ratio 17.3 % 10.0- 14.5 Automated blood platelet count (count/volume) 151 10*3/uL 130-400 Automated blood platelet mean volume measurement 9.9 [foz_us] 7.4-10.4 Automated blood neutrophils/100 leukocytes 61 % 42-75 Automated blood lymphocytes/100 leukocytes 30 % 12-44 Blood monocytes/100 leukocytes 7 % 0-12 Automated blood eosinophils/100 leukocytes 2 % 0-10 Automated blood basophils/100 leukocytes 0 % 0-10 Blood neutrophils automated count (number/volume) 6.2 10*3 1.8-7.8 Blood lymphocytes automated count (number/volume) 3.0 10*3 1.0-4.0 Blood monocytes automated count (number/volume) 0.7 10*3 0.0- 1.0 Automated eosinophil count 0.2 10*3/uL 0.0-0.3 Automated blood basophil count (count/volume) 0.0 10*3/uL 0.0-0.1 Comprehensive metabolic panel - 08/09/18 14:38 Serum or plasma sodium measurement (moles/volume) 140 mmol/L 135-145 Serum or plasma potassium measurement (moles/volume) 3.7 mmol/L 3.6-5.0 Serum or plasma chloride measurement (moles/volume) 103 mmol/L 98-107 Carbon dioxide 29 mmol/L 21-32 Serum or plasma anion gap determination (moles/volume) 8 mmol/L 5-14 Serum or plasma urea nitrogen measurement (mass/volume) 6 mg/dL 7-18 Serum or plasma creatinine measurement (mass/volume) 0.83 mg/dL 0.60-1.30 Serum or plasma urea nitrogen/creatinine mass ratio 7 NRG Serum or plasma creatinine measurement with calculation of estimated glomerular filtration rate > NRG Serum or plasma glucose measurement (mass/volume) 83 mg/dL 70-105 Serum or plasma calcium measurement (mass/volume) 9.9 mg/dL 8.5-10.1 Serum or plasma total bilirubin measurement (mass/volume) 0.4 mg/dL 0.1-1.0 Serum or plasma alkaline phosphatase measurement (enzymatic activity/volume) 81 U/L 40-136 Serum or plasma aspartate aminotransferase measurement (enzymatic activity/volume) 15 U/L 5-34 Serum or plasma alanine aminotransferase measurement (enzymatic activity/volume) 22 U/L 0-55 Serum or plasma protein measurement (mass/volume) 7.7 g/dL 6.4-8.2 Serum or plasma albumin measurement (mass/volume) 4.1 g/dL 3.2-4.5 CALCIUM CORRECTED 9.8 mg/dL 8.5-10.1 Encounters ACCT No. Visit Date/Time Discharge Status Pt. Type Provider Facility Loc./Unit Complaint [id number] 07/21/2013 14:21:00 07/21/2013 23:59:59 CLS Outpatient FATMATA FERNANDES DO [id number] 07/30/2018 18:40:00 07/30/2018 21:07:00 DIS Emergency ALANA SELF DO [facility] ER SOA, FEVER, CONGESTION [id number] 02/28/2018 08:15:00 02/28/2018 23:59:59 CLS Preadmit KIMBERLEY SORTO IMPROVEMENT DIRECTOR-DRAGGER [facility] RAD SCREENING [id number] 02/23/2018 13:15:00 02/23/2018 23:59:59 CLS Preadmit KIMBERLEY SORTO IMPROVEMENT DIRECTOR-DRAGGER [facility] RAD R92.2 INCONCLUSIVE MAMMO [id number] 06/25/2017 08:17:00 06/25/2017 23:59:59 CLS Outpatient KIMBERLEY SORTO IMPROVEMENT DIRECTOR-DRAGGER [facility] RAD [id number] 04/30/2017 08:39:00 04/30/2017 23:59:59 CLS Outpatient RADHA FAUSTIN, KELLEN Martinez [facility] RAD R05 [id number] 04/12/2017 08:56:00 04/12/2017 23:59:59 CLS Preadmit KIMBERLEY SORTO IMPROVEMENT DIRECTOR-DRAGGER [facility] RAD SCREENING [id number] 02/22/2017 09:37:00 02/22/2017 11:30:00 DIS Outpatient NANETTE SHELL DO [facility] ENDO REFLUX [id number] 02/15/2017 05:47:00 02/15/2017 10:51:00 DIS Outpatient NANETTE SHELL DO [facility] PREOP EGD [id number] 03/27/2015 14:02:00 03/27/2015 23:59:59 CLS Emergency GILBERT CHERRY MD [facility] ER ABD PAIN FATIGUE DARK STOOLS [id number] 08/09/2018 14:50:00 Document Registration
== END 2018-08-09 15:56 | disposition left against medical advice (07) ==
LOC: EDUNIT# 14:31 → ER 14:32
DX: J44.1 Chronic obstructive pulmonary disease with (acute) exacerbation (principal); G43.909 Migraine, unspecified, not intractable, without status migrainosus; E66.9 Obesity, unspecified; K21.9 Gastro-esophageal reflux disease without esophagitis; F17.210 Nicotine dependence, cigarettes, uncomplicated; Z88.8 Allergy status to other drugs, medicaments and biological substances; Z86.19 Personal history of other infectious and parasitic diseases; Z68.42 Body mass index [BMI] 45.0-49.9, adult; Z85.43 Personal history of malignant neoplasm of ovary; Z87.448 Personal history of other diseases of urinary system; Z79.51 Long term (current) use of inhaled steroids; Z79.52 Long term (current) use of systemic steroids; Z90.710 Acquired absence of both cervix and uterus; Z98.890 Other specified postprocedural states; Z87.01 Personal history of pneumonia (recurrent)
CPT/HCPCS: 36415; 71045; 80053; 85025; 94640

== ENCOUNTER 2019-04-22 15:21 | Inpatient (IN) | payer OTHER ==
[~2019-04-22] VITALS: Ht 157.5 cm; Wt 117.7 kg
[~2019-04-22 15:21] MED LIST changes: -D-ME118S7 PO; +HYDR-4226 PO; +OMEP-280 PO; -OMEP20CA12 PO; +OMEP40CA27 PO; -OMEP40CA36 PO; -OXYB10TA PO; +OXYB10TA2 PO; +PRED10TA22 PO; +PROM118S4 PO
--- NOTE | 2019-04-22 15:42 | ED Respiratory ---
General Stated Complaint: SOA History of Present Illness Date Seen by Provider: Apr 22, 2019 Time Seen by Provider: 15:30 Initial Comments 48-year-old female presents from [facility] [place] for bilateral pneumonia (lower lobes) that was diagnosed yesterday. She received a Rocephin injection IM yesterday and today. She is also on oral Doxycycline and Albuteral Neb treatments. SOA, SaO2 76% on RA, when arrives to room. O2 per NC adminstered at 3 L, quickly increased SaO2 to 90%. Influenza Neg at [facility]. Timing/Duration: getting worse (2-3 days) Prior Episodes/Possible Cause: occasional episodes Modifying Factors: Improves With Albuterol Nebulizer, Improves With Oxygen, Improves With Rest Associated Symptoms: chest pain/soreness, cough, nasal congestion, shortness of breath Allergies and Home Medications Allergies Coded Allergies: naproxen (Verified Allergy, Unknown, 07/30/18) Home Medications Acetaminophen 500 Mg Tablet, 1,000 MG PO BID, (Reported) Albuterol Sulfate 90 Mcg Aer.pow.ba, 1-2 PUFF IH PRN, (Reported) Benzonatate 100 Mg Capsule, 1-2 TAB PO TID Prescribed by: ALANA SELF on 07/30/182012 Budesonide 90 Mcg Aer.pow.ba, 90 MCG IH BID Prescribed by: ALANA SELF on 07/30/182013 Cefdinir 300 Mg Capsule, 300 MG PO BID Prescribed by: ALANA SELF on 07/30/182012 Cetirizine HCl 10 Mg Tablet, 10 MG PO DAILY, (Reported) Cholecalciferol (Vitamin D3) 2,000 Unit Capsule, 2,000 UNIT PO DAILY, (Reported) D-Methorphan Hb/Prometh HCl 118 Ml Syrup, 1-2 TSP PO Q4H Prescribed by: ALANA SELF on 07/30/182012 Fluconazole 200 Mg Tablet, 200 MG PO DAILY Prescribed by: ALANA SELF on 07/30/182012 Fluticasone Propionate 9.9 Ml [place].susp, 1 SPRAY NS DAILY, (Reported) Fluticasone Propionate 9.9 Ml [place].susp, 2 SPRAYS NS BID Prescribed by: ALANA SELF on 07/30/182012 Hydrocodone Bit/Acetaminophen 1 Each Tablet, 1 EACH PO Q6H Prescribed by: GILBERT CHERRY on 03/27/15 1612 Hydrocodone/Acetaminophen 1 Each Tablet, 1 TAB PO Q8H PRN for COUGH Prescribed by: ZELALEM FRANKLIN on 08/09/18 154 Ibuprofen 800 Mg Tablet, 800 MG PO Q12H PRN for PAIN, (Reported) Methylprednisolone 4 Mg Tab.ds.pk, 4 MG PO UD Prescribed by: ALANA SELF on 07/30/182012 Omeprazole 20 Mg Capsule.dr, 40 MG PO BID, (Reported) Omeprazole 40 Mg Capsule.dr, 40 MG PO DAILY, (Reported) Oxybutynin Chloride 10 Mg Tab.er.24, 10 MG PO DAILY, (Reported) Prednisone 10 Mg Tab.ds.pk, 10 MG PO DAILY Take 6 tabs(60mg)daily,decrease by 1 tab(10MG)daily. Prescribed by: ZELALEM FRANKLIN on 08/09/181546 Patient Home Medication List Home Medication List Reviewed: Yes Review of Systems Review of Systems Constitutional: no symptoms reported, see HPI Respiratory: see HPI, cough, dyspnea on exertion, phlegm, short of breath All Other Systems Reviewed Negative Unless Noted: Yes Past Ssxhcyn-Yizjvc-Gztwmc Hx Past Med/Social Hx: Reviewed Nursing Past Med/Soc Hx Patient Social History Type Used: Cigarettes Recent Hopitalizations: No Seasonal Allergies Seasonal Allergies: Yes Past Medical History Surgeries: Yes (HYST/BSO 1999) Gallbladder, Hysterectomy, Oophorectomy Respiratory: Yes Pneumonia, Chronic Bronchitis Cardiac: Yes (MURMUR SINCE ) Heart Murmur Neurological: Yes Headaches /Migraines 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 Sexually Transmitted Disease: Yes (HX HERPES) HIV/AIDS: No Genitourinary: Yes Bladder Infection Gastrointestinal: Yes Gastroesophageal Reflux Musculoskeletal: Yes Arthritis Endocrine: Yes (OBESITY) HEENT: No Loss of Vision: Bilateral Cancer: Yes Ovarian Did You Recieve Any Treatments: Yes What Type of Treatment Did You: Surgical Intervention Psychosocial: No Integumentary: No Blood Disorders: No Adverse Reaction/Blood Tranf: No (N/A) Physical Exam Vital Signs - First Documented 04/22/19 15:29 Temp 37.7 Pulse 108 Resp 24 B/P (MAP) 179/98 (125) Pulse Ox 94 O2 Delivery Nasal Cannula O2 Flow Rate 3.00 Capillary Refill : Height: 5'6.00" Weight: 260lbs. 0.0oz. 117.777901dl; 49.4 BMI Method:Estimated General Appearance: WD/WN, mild distress Eyes: Bilateral Eye Normal Inspection, Bilateral Eye PERRL, Bilateral Eye EOMI HEENT: PERRL/EOMI, normal ENT inspection, TMs normal, pharynx normal Neck: non-tender, full range of motion, supple, normal inspection Respiratory: chest non-tender, no respiratory distress, decreased breath sounds, rhonchi, wheezing Cardiovascular: normal peripheral pulses, regular rate, rhythm Gastrointestinal: normal bowel sounds, non tender, soft Neurologic/Psychiatric: no motor/sensory deficits, alert, normal mood/affect, oriented x 3 Skin: normal color, warm/dry Lymphatic: no adenopathy Focused Exam Lactate Level Lactic Acid Level Progress/Results/Core Measures Suspected Sepsis SIRS Temperature: Pulse: Respiratory Rate: Laboratory Tests 04/22/19 15:40: White Blood Count 10.3 Blood Pressure / Mean: Laboratory Tests 04/22/19 15:40: Creatinine 0.81, INR Comment 1.0, Platelet Count 156, Total Bilirubin 0.5 Results/Orders Lab Results Laboratory Tests Test 04/22/19 15:40 Range/Units White Blood Count 10.3 4.3-11.0 10^3/uL Red Blood Count 4.12 L 4.35-5.85 10^6/uL Hemoglobin 14.2 11.5-16.0 G/DL Hematocrit 43 35-52 % Mean Corpuscular Volume 105 H 80-99 FL Mean Corpuscular Hemoglobin 35 H 25-34 PG Mean Corpuscular Hemoglobin Concent 33 32-36 G/DL Red Cell Distribution Width 15.6 H 10.0-14.5 % Platelet Count 156 130-400 10^3/uL Mean Platelet Volume 10.4 7.4-10.4 FL Neutrophils (%) (Auto) 63 42-75 % Lymphocytes (%) (Auto) 29 12-44 % Monocytes (%) (Auto) 6 0-12 % Eosinophils (%) (Auto) 2 0-10 % Basophils (%) (Auto) 0 0-10 % Neutrophils # (Auto) 6.5 1.8-7.8 X 10^3 Lymphocytes # (Auto) 2.9 1.0-4.0 X 10^3 Monocytes # (Auto) 0.6 0.0-1.0 X 10^3 Eosinophils # (Auto) 0.2 0.0-0.3 10^3/uL Basophils # (Auto) 0.0 0.0-0.1 10^3/uL Prothrombin Time 13.6 12.2-14.7 SEC INR Comment 1.0 0.8-1.4 Activated Partial Thromboplast Time 32 24-35 SEC Sodium Level 142 135-145 MMOL/L Potassium Level 3.5 L 3.6-5.0 MMOL/L Chloride Level 102 98-107 MMOL/L Carbon Dioxide Level 27 21-32 MMOL/L Anion Gap 13 5-14 MMOL/L Blood Urea Nitrogen 10 7-18 MG/DL Creatinine 0.81 0.60-1.30 MG/DL Estimat Glomerular Filtration Rate > 60 BUN/Creatinine Ratio 12 Glucose Level 88 70-105 MG/DL Calcium Level 9.6 8.5-10.1 MG/DL Corrected Calcium 9.7 8.5-10.1 MG/DL Total Bilirubin 0.5 0.1-1.0 MG/DL Aspartate Amino Transf (AST/SGOT) 16 5-34 U/L Alanine Aminotransferase (ALT/SGPT) 18 0-55 U/L Alkaline Phosphatase 105 40-136 U/L Total Protein 7.4 6.4-8.2 GM/DL Albumin 3.9 3.2-4.5 GM/DL My Orders Orders - ROSETTA LOU Albuterol/Ipra Inhalation Soln (Duoneb I (04/22/19 15:45) Svn Small Volume Nebulizer (04/22/19 15:36) Methylprednisolone Sod Succ (Solu-Medrol (04/22/19 15:45) Medications Given in ED Current Medications Medications Dose Ordered Sig/Carlos Route Start Time Stop Time Status Last Admin Dose Admin Albuterol/ Ipratropium 3 ml ONCE ONCE INH 04/22/19 15:45 04/22/19 15:46 DC 04/22/19 15:44 3 ML Methylprednisolone Sodium Succinate 125 mg ONCE ONCE IVP 04/22/19 15:45 04/22/19 15:46 DC 04/22/19 15:58 125 MG Vital Signs/I&O 04/22/19 04/22/19 04/22/19 15:29 15:30 15:45 Temp 37.7 Pulse 108 Resp 24 B/P (MAP) 179/98 (125) Pulse Ox 94 95 96 O2 Delivery Nasal Cannula Nasal Cannula Nasal Cannula O2 Flow Rate 3.00 3.00 4.00 Capillary Refill : Progress Note : Time: 15:30 Progress Note Patient seen and evaluated. Will obtain a chest x-ray, DuoNeb breathing treatment, labs, oxygen per nasal cannula, Solu-Medrol 125 mg IV and continue to monitor. [address] Kay by phone, agreed with plans for admission to medical floor. Given azithromycin 500 mg IV. 1630 Continuing to require 2-3 L O2 to maintain SaO2 > 90%. Patient required 2nd duoneb treatment. 1650 patient reports to be feeling better, however aeration is still diminished bilaterally. Less coughing, but thick, brown/yellow sputum produced. Tachy 95- 110. Diagnostic Imaging Diagonstic Imaging: Xray Plain Films/CT/US/NM/MRI: chest Comments NAME: ELLEN KC [facility] REC#: [id number] PT STATUS: ADM [place] : 1970 PHYSICIAN: REBEL MARCIAL MD ADMIT DATE: 04/22/19/4TH Draft Date of Exam:04/22/19 CHEST PA/LAT (2 VIEW) INDICATION: Shortness of breath and cough. Comparison made to the previous study from August 09, 2018. FINDINGS: Lungs demonstrate no evidence of alveolar infiltrate or consolidation. The diaphragms appear flattened suggesting air trapping which may relate to underlying COPD. Heart size is appropriate. There are no findings of failure. There is no effusion or pneumothorax. IMPRESSION: 1. Pulmonary hyperinflation suggesting air trapping. Correlate for smoking history or history of COPD. 2. No findings of alveolar infiltrate or consolidation. Dictated on workstation # [id number] Dict: 04/22/19 1624 Trans: 04/22/19 1627 [facility] [id number] Interpreted by: JOHN MACHUCA MD Electronically signed by: Departure Impression Primary Impression: Pneumonia Qualified Codes: J18.1 - Lobar pneumonia, unspecified organism Additional Impressions: Hypoxia Tobacco abuse Disposition: ADMITTED INPATIENT Condition: Stable Admissions Decision to Admit Reason: Admit from ER (General) Decision to Admit/Date: Apr 22, 2019 Time/Decision to Admit Time: 15:45 Departure-Patient Inst. Referrals: NO,LOCAL PHYSICIAN (PCP/Family) Primary Care Physician ROSETTA LOU Apr 22, 2019 15:42
[2019-04-22] MEDS ORDERED: RT-ALBUTEROL/IPRATROPIUM 3 ML (DUONEB) VIAL INH ONE ×2 (15:45→16:15)
[2019-04-22] MEDS ORDERED: methylPREDNISolone 125 MG (Solu-MEDROL) VIAL IVP ONE (15:45)
[2019-04-22] MEDS ORDERED: AZITHROMYCIN INJECTION 500 MG in NS (IVPB) 250 ML IV ONE (16:00)
[2019-04-22 16:03] LABS: BASOPHILS % (AUTO) 0 % (0-10); EOSINOPHILS # (AUTO) 0.2 10^3/uL (0.0-0.3); EOSINOPHILS % (AUTO) 2 % (0-10); HEMATOCRIT 43 % (35-52); HEMOGLOBIN 14.2 G/DL (11.5-16.0); LYMPHOCYTES # (AUTO) 2.9 X 10^3 (1.0-4.0); LYMPHOCYTES % (AUTO) 29 % (12-44); MEAN CORPUSCULAR HEMOGLOBIN 35 PG (25-34); MEAN CORPUSCULAR HGB CONC 33 G/DL (32-36); MEAN CORPUSCULAR VOLUME 105 FL (80-99); MEAN PLATELET VOLUME 10.4 FL (7.4-10.4); MONOCYTES # (AUTO) 0.6 X 10^3 (0.0-1.0); MONOCYTES % (AUTO) 6 % (0-12); NEUTROPHILS # (AUTO) 6.5 X 10^3 (1.8-7.8); NEUTROPHILS % (AUTO) 63 % (42-75); PLATELET COUNT 156 10^3/uL (130-400); RED CELL DISTRIBUTION WIDTH 15.6 % (10.0-14.5); WHITE BLOOD COUNT 10.3 10^3/uL (4.3-11.0)
[2019-04-22 16:18] LABS: PROTHROMBIN TIME PATIENT 13.6 SEC (12.2-14.7)
--- NOTE | 2019-04-22 16:28 | Diagnostic Imaging Report ---
INDICATION: Shortness of breath and cough. Comparison made to the previous study from August 09, 2018. FINDINGS: Lungs demonstrate no evidence of alveolar infiltrate or consolidation. The diaphragms appear flattened suggesting air trapping which may relate to underlying COPD. Heart size is appropriate. There are no findings of failure. There is no effusion or pneumothorax. IMPRESSION: 1. Pulmonary hyperinflation suggesting air trapping. Correlate for smoking history or history of COPD. 2. No findings of alveolar infiltrate or consolidation. Dictated by: Dictated on workstation # [id number]
[2019-04-22 16:33] VITALS: BP 179/98
[2019-04-22 16:39] LABS: ALANINE AMINOTRANSFERASE 18 U/L (0-55); ALBUMIN 3.9 GM/DL (3.2-4.5); ALKALINE PHOSPHATASE 105 U/L (40-136); BILIRUBIN,TOTAL 0.5 MG/DL (0.1-1.0); BUN/CREATININE RATIO 12; CALCIUM 9.6 MG/DL (8.5-10.1); CARBON DIOXIDE 27 MMOL/L (21-32); CHLORIDE 102 MMOL/L (98-107); CREATININE SERUM 0.81 MG/DL (0.60-1.30); GFR ESTIMATED > 60; GLUCOSE 88 MG/DL (70-105); POTASSIUM 3.5 MMOL/L (3.6-5.0); SODIUM 142 MMOL/L (135-145); TOTAL PROTEIN 7.4 GM/DL (6.4-8.2)
[2019-04-22] MEDS ORDERED: RT-ALBUTEROL/IPRATROPIUM 3 ML (DUONEB) VIAL INH PRN (16:45)
[2019-04-22 16:56] LABS: BILIRUBIN,URINE NEGATIVE (NEGATIVE); CLARITY,URINE CLEAR; COLOR,URINE YELLOW; GLUCOSE, URINE (UA) NEGATIVE (NEGATIVE); KETONES,URINE NEGATIVE (NEGATIVE); LEUKOCYTE ESTERASE ,URINE NEGATIVE (NEGATIVE); NITRITE,URINE NEGATIVE (NEGATIVE); PH,URINE 5.5 (5-9); PROTEIN,URINE NEGATIVE (NEGATIVE)
[2019-04-22 17:02] LABS: BACTERIA,URINE NEGATIVE /HPF; SQUAMOUS EPITHELIAL CELL,UR 0-2 /HPF; WBC,URINE RARE /HPF
[2019-04-22 17:06] VITALS: BP 155/71
[2019-04-22] MEDS ORDERED: IBUPROFEN 600 MG (MOTRIN) TAB PO PRN (17:30)
[2019-04-22] MEDS ORDERED: ACETAMINOPHEN 325 MG TABLET PO PRN (17:30)
[2019-04-22] MEDS ORDERED: ONDANSETRON 4 MG/2 ML (SDV) Z0FRAN IVP PRN (17:30)
--- NOTE | 2019-04-22 17:30 | NUR ---
ELLEN KC admitted to room 408-1, with an admitting diagnosis of bilateral pneumonia, on 04/22/19 from [facility] , accompanied by family and staff.ELLEN KC introduced to surroundings, call light, bed controls, phone, TV, temperature control, lights, meal times, smoking policy, visitor policy, side rail policy, bathrooms and showers. Patient Rights given to patient in the handbook. ELLEN KC verbalizes understanding that [facility] is not responsible for the loss or damage to any personal effects or valuables that are kept in the patients posession during their hospitalization. ELLEN KC verbalizes understanding of Interdisciplinary Patient Education. Patient and/or family were informed about the Rapid Response Team and its purpose.
[2019-04-22] MEDS ORDERED: methylPREDNISolone 125 MG (Solu-MEDROL) VIAL IVP SCH (18:00)
--- NOTE | 2019-04-22 18:54 | NUR ---
patient off floor at this time. patient is off floor with her son and her three grand children
[2019-04-22] MEDS: RT-ALBUTEROL/IPRATROPIUM 3 ML (DUONEB) VIAL INH SCH ×2 (19:11→21:37)
--- NOTE | 2019-04-22 19:11 | NUR ---
patient back on floor at this time. verbalizes no other needs
[2019-04-22 19:59] VITALS: BP 123/63
[2019-04-22] MEDS: NS IV 1000 ML 1,000 ML IV SCH (21:05)
[2019-04-22] MEDS: NICOTINE 14 MG (NICODERM) PATCH TD SCH (21:05)
[2019-04-22] MEDS: methylPREDNISolone 125 MG (Solu-MEDROL) VIAL IVP SCH (22:16)
[2019-04-22] MEDS ORDERED: TROS20TA3 PO (23:07)
[2019-04-22] MEDS ORDERED: ATOR40TA70 PO (23:09)
[2019-04-22] MEDS ORDERED: LISI-552 PO (23:09)
[2019-04-23] VITALS (7 sets, daily range): BP systolic 127–180; BP diastolic 56–95
[2019-04-23] MEDS: RT-ALBUTEROL/IPRATROPIUM 3 ML (DUONEB) VIAL INH SCH ×6 (02:21→21:28)
[2019-04-23] MEDS: methylPREDNISolone 125 MG (Solu-MEDROL) VIAL IVP SCH (04:29)
[2019-04-23 05:39] LABS: BASOPHILS % (AUTO) 0 % (0-10); EOSINOPHILS % (AUTO) 0 % (0-10); HEMATOCRIT 42 % (35-52); LYMPHOCYTES # (AUTO) 1.1 X 10^3 (1.0-4.0); LYMPHOCYTES % (AUTO) 13 % (12-44); MEAN CORPUSCULAR HEMOGLOBIN 35 PG (25-34); MEAN CORPUSCULAR HGB CONC 34 G/DL (32-36); MEAN CORPUSCULAR VOLUME 104 FL (80-99); MEAN PLATELET VOLUME 9.9 FL (7.4-10.4); MONOCYTES # (AUTO) 0.1 X 10^3 (0.0-1.0); MONOCYTES % (AUTO) 1 % (0-12); NEUTROPHILS # (AUTO) 6.8 X 10^3 (1.8-7.8); NEUTROPHILS % (AUTO) 86 % (42-75); PLATELET COUNT 166 10^3/uL (130-400); RED CELL DISTRIBUTION WIDTH 15.6 % (10.0-14.5); WHITE BLOOD COUNT 7.9 10^3/uL (4.3-11.0)
[2019-04-23 06:03] LABS: ALANINE AMINOTRANSFERASE 15 U/L (0-55); ALBUMIN 3.8 GM/DL (3.2-4.5); ALKALINE PHOSPHATASE 104 U/L (40-136); BILIRUBIN,TOTAL 0.2 MG/DL (0.1-1.0); BUN/CREATININE RATIO 15; CALCIUM 9.5 MG/DL (8.5-10.1); CARBON DIOXIDE 25 MMOL/L (21-32); CHLORIDE 107 MMOL/L (98-107); CREATININE SERUM 0.78 MG/DL (0.60-1.30); GFR ESTIMATED > 60; GLUCOSE 190 MG/DL (70-105); POTASSIUM 4.2 MMOL/L (3.6-5.0); SODIUM 142 MMOL/L (135-145); TOTAL PROTEIN 7.4 GM/DL (6.4-8.2)
[2019-04-23] MEDS: TROSPIUM 20 MG (SANCTURA) TAB PO SCH ×2 (06:35→15:21)
[2019-04-23] MEDS: NS IV 1000 ML 1,000 ML IV SCH ×3 (07:40→23:30)
[2019-04-23] MEDS: lisINopril 20 MG (PRINIVIL) TABLET PO SCH (08:42)
[2019-04-23] MEDS: PANTOPRAZOLE 40 MG (PROTONIX) TAB PO SCH ×2 (08:42→20:49)
[2019-04-23] MEDS: NICOTINE 14 MG (NICODERM) PATCH TD SCH (08:44)
[2019-04-23] MEDS: NICOTINE PATCH REMOVAL TP SCH (08:49)
[2019-04-23] MEDS: PROMETHAZINE/ CODEINE SYRUP 5 ML UDC PO PRN ×2 (08:53→16:40)
[2019-04-23] MEDS ORDERED: PANTOPRAZOLE 40 MG (PROTONIX) TAB PO ONE (09:00)
--- NOTE | 2019-04-23 10:14 | History & Physical-Hospitalist ---
History of Present Illness HPI/Chief Complaint Patient is a 48 y/o female who presents with cough and shortness of breath. Symptoms began 5 days ago and have been progressively worsening. She reports associated low grade fever, chest tightness, and decreased appetite. The cough is productive of thick brownish green sputum. Symptoms are made worse with exertion and improve with home nebulizer treatments. Patient also reports headache which is a chronic problem for her, and nausea which started 1 week ago after she was started on Trospium for overactive bladder. Patient was seen at [facility] [place] urgent care 2 days ago and was diagnosed with bilateral lower lobe pneumonia. She received two doses of Rocephin IM and was started on oral Doxycycline. She presented to the ED yesterday with worsening symptoms and was found to have an O2 sat of 76% on RA. Date Seen 04/23/19 Time Seen by a Provider: 09:30 Attending Physician Yasmin Kay MD PCP No,Local Physician Referring Physician Date of Admission Apr 22, 2019 at 15:55 Home Medications & Allergies Home Medications Reviewed patient Home Medication Reconciliation performed by pharmacy medication reconciliations hazardous waste material technician and/or nursing. Patients Allergies have been reviewed. 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) Alcohol Use: Denies Use Recreational Drug Use: No Smoking Status: Current Everyday Smoker (1 ppd; 35 pack year history) Type Used: Cigarettes 2nd Hand Smoke Exposure: Yes Recent Foreign Travel: No Contact w/other who traveled: No Recent Hopitalizations: No Recent Infectious Disease Expo: No Immunizations Up To Date Pediatric: Yes Seasonal Allergies Seasonal Allergies: Yes Past Medical History Surgeries: Gallbladder, Hysterectomy, Oophorectomy Respiratory: Chronic Bronchitis, Pneumonia Cardiac: Heart Murmur, High Cholesterol, Hypertension Neurological: Headaches /Migraines Reproductive: Yes Sexually Transmitted Disease: Yes (HX HERPES) HIV/AIDS: No Hysterectomy Genitourinary: Bladder Infection Gastrointestinal: Gastroesophageal Reflux Musculoskeletal: Arthritis Loss of Vision: Bilateral Cancer: Ovarian Did You Recieve Any Treatments: Yes What Type of Treatment Did You: Surgical Intervention Psychosocial: Anxiety (OCD) History of Blood Disorders: No Adverse Reaction to Blood Garcia: No (N/A) Family History Heart Disease, Cancer (colon, lung, throat), Diabetes Review of Systems Constitutional: No chills; fever EENTM: No hearing loss, No vision loss Respiratory: cough, short of breath Cardiovascular: chest pain; No palpitations Gastrointestinal: No abdominal pain, No diarrhea Genitourinary: No dysuria, No frequency; incontinence (stress) Musculoskeletal: joint pain, muscle pain Skin: No lesions, No rash Psychiatric/Neurological: Headache; Denies Paresthesia Physical Exam Physical Exam Vital Signs Vital Signs - First Documented 04/22/19 04/22/19 15:29 16:33 Temp 37.7 Pulse 108 Resp 24 B/P (MAP) 179/98 (125) Pulse Ox 94 O2 Delivery Nasal Cannula O2 Flow Rate 3.00 FiO2 21 Capillary Refill : Less Than 3 Seconds Height, Weight, BMI Height: 5'6.00" Weight: 260lbs. 0.0oz. 117.970620oh; 47.44 BMI Method:Estimated General Appearance: No Apparent Distress, WD/WN HEENT: Pharynx Normal, Moist Mucous Membranes Neck: Non Tender, Supple Respiratory: Chest Non Tender, Lungs Clear, No Accessory Muscle Use, No Respiratory Distress, Decreased Breath Sounds Cardiovascular: Regular Rate, Rhythm, No Murmur Gastrointestinal: Non Tender, Soft Extremity: No Calf Tenderness, Swelling (mild pitting edema lower extremities) Neurologic/Psychiatric: Alert, Normal Mood/Affect Skin: Normal Color, Warm/Dry Results Results/Procedures Labs Laboratory Tests 04/22/19 15:40 04/23/19 05:21 Patient resulted labs reviewed. Clinical Quality Measures DVT/VTE Risk/Contraindication: Risk Factor Score Per Nursin RFS Level Per Nursing on Admit: 2=Moderate ELIO CHOI,MED STUDENT Apr 23, 2019 10:14
[2019-04-23] MEDS ORDERED: PRD20T PO (11:16)
--- NOTE | 2019-04-23 11:16 | Short Stay Summary-Hospitalist ---
History of Present Illness HPI/Chief Complaint Patient is a 48 y/o female who presents with cough and shortness of breath. Symptoms began 5 days ago and have been progressively worsening. She reports associated low grade fever, chest tightness, and decreased appetite. The cough is productive of thick brownish green sputum. Symptoms are made worse with exertion and improve with home nebulizer treatments. Patient also reports headache which is a chronic problem for her, and nausea which started 1 week ago after she was started on Trospium for overactive bladder. Patient was seen at [facility] [place] [facility] urgent care 2 days ago and was diagnosed with bilateral lower lobe pneumonia. She received two doses of Rocephin IM and was started on oral Doxycycline. She presented to the ED yesterday with worsening symptoms and was found to have an O2 sat of 76% on RA. Date Seen 04/23/19 Time Seen by a Provider: 11:00 Attending Physician Yasmin Kay MD PCP No,Local Physician Referring Physician Date of Admission Apr 22, 2019 at 15:55 Home Medications & Allergies Home Medications Reviewed patient Home Medication Reconciliation performed by pharmacy medication reconciliations geotechnical engineering technician and/or nursing. Patients Allergies have been reviewed. 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) Alcohol Use: Denies Use Recreational Drug Use: No Smoking Status: Current Everyday Smoker (1 ppd; 35 pack year history) Type Used: Cigarettes 2nd Hand Smoke Exposure: Yes Recent Foreign Travel: No Contact w/other who traveled: No Recent Hopitalizations: No Recent Infectious Disease Expo: No Immunizations Up To Date Pediatric: Yes Seasonal Allergies Seasonal Allergies: Yes Past Medical History Surgeries: Gallbladder, Hysterectomy, Oophorectomy Respiratory: Chronic Bronchitis, Pneumonia Cardiac: Heart Murmur, High Cholesterol, Hypertension Neurological: Headaches /Migraines Reproductive: Yes Sexually Transmitted Disease: Yes (HX HERPES) HIV/AIDS: No Hysterectomy Genitourinary: Bladder Infection Gastrointestinal: Gastroesophageal Reflux Musculoskeletal: Arthritis Loss of Vision: Bilateral Cancer: Ovarian Did You Recieve Any Treatments: Yes What Type of Treatment Did You: Surgical Intervention Psychosocial: Anxiety (OCD) History of Blood Disorders: No Adverse Reaction to Blood Garcia: No (N/A) Family History Heart Disease, Cancer (colon, lung, throat), Diabetes Review of Systems Constitutional: No chills; fever EENTM: No hearing loss, No vision loss Respiratory: cough, short of breath Cardiovascular: chest pain; No palpitations Gastrointestinal: No abdominal pain, No diarrhea Genitourinary: No dysuria, No frequency; incontinence (stress) Musculoskeletal: joint pain, muscle pain Skin: No lesions, No rash Psychiatric/Neurological: Headache; Denies Paresthesia Physical Exam Physical Exam Vital Signs Vital Signs - First Documented 04/22/19 04/22/19 15:29 16:33 Temp 37.7 Pulse 108 Resp 24 B/P (MAP) 179/98 (125) Pulse Ox 94 O2 Delivery Nasal Cannula O2 Flow Rate 3.00 FiO2 21 Capillary Refill : Less Than 3 Seconds Height, Weight, BMI Height: 5'6.00" Weight: 260lbs. 0.0oz. 117.994876tm; 47.44 BMI Method:Estimated General Appearance: No Apparent Distress, WD/WN Eyes: Bilateral Eye Normal Inspection, Bilateral Eye PERRL, Bilateral Eye EOMI HEENT: Pharynx Normal, Moist Mucous Membranes Neck: Non Tender, Supple Respiratory: Chest Non Tender, Lungs Clear, No Accessory Muscle Use, No Respiratory Distress, Decreased Breath Sounds Cardiovascular: Regular Rate, Rhythm, No Murmur Gastrointestinal: Non Tender, Soft Extremity: No Calf Tenderness, Swelling (mild pitting edema lower extremities) Neurologic/Psychiatric: Alert, Normal Mood/Affect Skin: Normal Color, Warm/Dry Results Results/Procedures Labs Laboratory Tests 04/22/19 15:40 04/23/19 05:21 Patient resulted labs reviewed. Short Stay Diagnosis Discharge Diagnosis-Short Stay Admission Diagnosis Pneumonia with sepsis Final Discharge Diagnosis Pneumonia with sepsis Clinical Quality Measures DVT/VTE Risk/Contraindication: Risk Factor Score Per Nursin RFS Level Per Nursing on Admit: 2=Moderate ELIO CHOI,MED STUDENT Apr 23, 2019 11:16
--- NOTE | 2019-04-23 11:26 | NUR ---
HOME 02 WALK- pts sp02 dropped after one minute of walking to 79%. 02 was applied at ,2 lpm. 02 nasir to 82 after one minute . 4 lpm was then applied sp02 resting at 92% after 5 mins. Addendum: 04/23/19 at 1126 by ALYSHA COREAS RT Amended: Links added.
--- NOTE | 2019-04-23 11:28 | Discharge Inst-Simple/Standard ---
Discharge Inst-Standard Discharge Medications New, Converted or Re-Newed RX: Transmitted to Pharmacy Patient Instructions/Follow Up Plan of Care/Instructions/FU: Please continue to take your medications as written. Please follow up with your Primary Care Nurse Practionior as soon as possible. Please follow up with your nuclear fuels research engineer next week. Activity as Tolerated: Yes Discharge Diet: Cardiac Diet Return to The Hospital For: Shortness of breath, chest pain, worsening cough, fever, if you feel you are getting worse. MICHELLE LEYVA MD Apr 23, 2019 11:26
--- NOTE | 2019-04-23 12:00 | NUR ---
patient off floor at this time with son and grand children
--- NOTE | 2019-04-23 12:11 | History & Physical-Hospitalist ---
STEPHELIO,MED STUDENT 04/23/19 1211: History of Present Illness HPI/Chief Complaint Patient is a 48 y/o female who presents with cough and shortness of breath. Symptoms began 5 days ago and have been progressively worsening. She reports associated low grade fever, chest tightness, and decreased appetite. The cough is productive of thick brownish green sputum. Symptoms are made worse with exertion and improve with home nebulizer treatments. Patient also reports headache which is a chronic problem for her, and nausea which started 1 week ago after she was started on Trospium for overactive bladder. Patient was seen at [facility] urgent care 2 days ago and was diagnosed with bilateral lower lobe pneumonia. She received two doses of Rocephin IM and was started on oral Doxycycline. She presented to the ED yesterday with worsening symptoms and was found to have an O2 sat of 76% on RA. Date Seen 04/23/19 Time Seen by a Provider: 11:00 Attending Physician Michelle Kay MD PCP No,Local Physician Referring Physician Date of Admission Apr 22, 2019 at 15:55 Home Medications & Allergies Home Medications Reviewed patient Home Medication Reconciliation performed by pharmacy medication reconciliations electrical instrument technician and/or nursing. Patients Allergies have been reviewed. 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) Alcohol Use: Denies Use Recreational Drug Use: No Smoking Status: Current Everyday Smoker (1 ppd; 35 pack year history) Type Used: Cigarettes 2nd Hand Smoke Exposure: Yes Recent Foreign Travel: No Contact w/other who traveled: No Recent Hopitalizations: No Recent Infectious Disease Expo: No Immunizations Up To Date Pediatric: Yes Seasonal Allergies Seasonal Allergies: Yes Past Medical History Surgeries: Gallbladder, Hysterectomy, Oophorectomy Respiratory: Chronic Bronchitis, Pneumonia Cardiac: Heart Murmur, High Cholesterol, Hypertension Neurological: Headaches /Migraines Reproductive: Yes Sexually Transmitted Disease: Yes (HX HERPES) HIV/AIDS: No Hysterectomy Genitourinary: Bladder Infection Gastrointestinal: Gastroesophageal Reflux Musculoskeletal: Arthritis Loss of Vision: Bilateral Cancer: Ovarian Did You Recieve Any Treatments: Yes What Type of Treatment Did You: Surgical Intervention Psychosocial: Anxiety (OCD) History of Blood Disorders: No Adverse Reaction to Blood Garcia: No (N/A) Family History Heart Disease, Cancer (colon, lung, throat), Diabetes Review of Systems Constitutional: No chills; fever EENTM: No hearing loss, No vision loss Respiratory: cough, dyspnea on exertion, short of breath Cardiovascular: chest pain; No palpitations Gastrointestinal: No abdominal pain, No diarrhea Genitourinary: No dysuria, No frequency Musculoskeletal: joint pain, muscle pain Skin: No lesions, No rash Psychiatric/Neurological: Headache; Denies Paresthesia Physical Exam Physical Exam Vital Signs Vital Signs - First Documented 04/22/19 04/22/19 15:29 16:33 Temp 37.7 Pulse 108 Resp 24 B/P (MAP) 179/98 (125) Pulse Ox 94 O2 Delivery Nasal Cannula O2 Flow Rate 3.00 FiO2 21 Capillary Refill : Less Than 3 Seconds Height, Weight, BMI Height: 5'6.00" Weight: 260lbs. 0.0oz. 117.965282bl; 47.44 BMI Method:Estimated General Appearance: No Apparent Distress, WD/WN HEENT: Pharynx Normal, Moist Mucous Membranes Neck: Non Tender, Supple Respiratory: Chest Non Tender, No Accessory Muscle Use, No Respiratory Distress, Decreased Breath Sounds Cardiovascular: Regular Rate, Rhythm, No Murmur Gastrointestinal: Non Tender, Soft Extremity: No Calf Tenderness, Swelling Neurologic/Psychiatric: Alert, Normal Mood/Affect Skin: Normal Color, Warm/Dry Results Results/Procedures Labs Laboratory Tests 04/22/19 15:40 04/23/19 05:21 Patient resulted labs reviewed. Assessment/Plan Admission Diagnosis Pneumonia with sepsis Admission Status: Inpatient Order (span 2 midnights) Assessment and Plan Pneumonia with sepsis - IV ceftriaxone and azithromycin - IV fluids 100 ml/hr - Hays cultures - Legionella and S.pneumo antigen testing - MAT protocol - Switch solumedrol to 40 mg Prednisone for 5 days Tobacco abuse - Nicotine patch - Cessation counseling DVT prophylaxis - SCDs - Lovenox 40 mg daily Hyperglycemia - Likely due to steroids - Accuchecks - Sliding scale insulin Overactive bladder Hyperlipidemia Hypertension - Resume home meds Clinical Quality Measures DVT/VTE Risk/Contraindication: Risk Factor Score Per Nursin RFS Level Per Nursing on Admit: 2=Moderate MICHELLE KAY MD 04/23/19 1245: Past Ounjrzd-Yiucma-Vgfzid Hx Past Med/Social Hx: Reviewed Nursing Past Med/Soc Hx Patient Social History Smoking Status: Current Everyday Smoker Past Medical History Surgeries: Oophorectomy Respiratory: Asthma, Chronic Bronchitis, Pneumonia Cardiac: High Cholesterol, Hypertension Family History Reviewed Nursing Family Hx Results Results/Procedures Imaging: Reviewed Imaging Films, Reviewed Imaging Report Assessment/Plan Assessment and Plan Pt admitted with sepsis (present on arrival) from pneumonia after failing outpatient management. She reports feeling much better today. Cough and shortness of breath improving. At first pt was requesting to discharge today which I told her was not medically appropriate as she has not been medically optimized and is still on oxygen. She was able to arrange childcare so is now agreeable to staying. Home oxygen study done and ordered already when her plan was to leave AMA. Continue steroids and antibiotics. Very likely she may not be ready for discharge tomorrow either which I informed her of but she stated she had to leave tomorrow by 3pm in order to get her dog's son from the vet. Diagnosis/Problems Diagnosis/Problems (1) Sepsis Qualifiers: Sepsis type: sepsis due to unspecified organism Sepsis acute organ dysfunction status: without acute organ dysfunction Qualified Codes: A41.9 - Sepsis, unspecified organism (2) Pneumonia Status: Acute Qualifiers: Pneumonia type: due to unspecified organism Laterality: bilateral Lung location: lower lobe of lung Qualified Codes: J18.1 - Lobar pneumonia, unspecified organism (3) Hypoxia Status: Acute (4) Tobacco abuse Status: Acute Supervisory-Addendum Brief Verification & Attestation Participated in pt care: history, MDM, physical Personally performed: exam, history, MDM, supervision of care Care discussed with: Medical Student Procedures: n/a Results interpretation: Verified all documentation Verification and Attestation of Medical Student E/M Service A medical student performed and documented this service in my presence. I reviewed and verified all information documented by the medical student and made modifications to such information, when appropriate. I personally performed the physical exam and medical decision making. Michelle Kay, Apr 23, 2019,12:47 ELIO CHOI,MED STUDENT Apr 23, 2019 12:11 MICHELLE KAY MD Apr 23, 2019 12:45
--- NOTE | 2019-04-23 12:45 | NUR ---
patient back on floor at this time
[2019-04-23] MEDS ORDERED: PATIENT MAY USE OWN MEDS, ALL MC SCH (13:00)
[2019-04-23] MEDS: inSUlin ASPART (NovoLOG) 1 UNIT/0.01 ML (CHARGE PER UNIT) SC SCH ×3 (13:04→20:48)
[2019-04-23] MEDS: ENOXAPARIN 40 MG/0.4 ML (LOVENOX) SYR SQ SCH ×2 (13:04→23:30)
--- NOTE | 2019-04-23 13:17 | NUR ---
sent patients B12 and D3 vitamin to pharmacy to be labeled for patient use
[2019-04-23] MEDS: CYANOCOBALAMIN 1,000 MCG (VITAMIN B-12) TABLET PO SCH (15:22)
[2019-04-23] MEDS: VITAMIN D3 1,000 UNITS (CHOLECALCIFEROL) TABLET PO SCH (15:23)
[2019-04-23] MEDS ORDERED: AZITHROMYCIN INJECTION 500 MG in NS (IVPB) 250 ML IV SCH (16:00)
[2019-04-23] MEDS ORDERED: cefTRIAXone FOR IV USE 1,000 MG in WATER (STERILE) FOR INJECTION 10 ML IV SCH (17:30)
[2019-04-23] MEDS ORDERED: methylPREDNISolone 125 MG (Solu-MEDROL) VIAL IVP SCH (18:14)
[2019-04-23] MEDS: methylPREDNISolone 40 MG/ML (Solu-MEDROL) VIAL IV SCH (18:32)
[2019-04-24] VITALS: BP 141/66
[2019-04-24] MEDS: methylPREDNISolone 40 MG/ML (Solu-MEDROL) VIAL IV SCH (02:16)
[2019-04-24] MEDS: RT-ALBUTEROL/IPRATROPIUM 3 ML (DUONEB) VIAL INH SCH ×3 (02:18→10:57)
[2019-04-24] MEDS: PROMETHAZINE/ CODEINE SYRUP 5 ML UDC PO PRN (02:53)
[2019-04-24 04:00] VITALS: BP 137/67
--- NOTE | 2019-04-24 05:08 | NUR ---
PT INADVERTENTLY PULLED OUT I.V. THIS RN ATTEMPT IV X 1 UNSUCCESSFULLY. PT REQUEST NO MORE ATTEMPTS UNTIL SHE SPEAKS WITH PHYSICIAN D/T HER LEAVING TODAY AND SHE REPORTS BEING STUCK MULTIPLE TIMES BY DAYSHIFT 04/23/2019
[2019-04-24] MEDS: TROSPIUM 20 MG (SANCTURA) TAB PO SCH (05:51)
[2019-04-24] MEDS: CYANOCOBALAMIN 1,000 MCG (VITAMIN B-12) TABLET PO SCH (05:57)
--- NOTE | 2019-04-24 06:52 | NUR ---
T.O. RECEIVED FROM DR LEYVA TO LEAVE I.V. OUT AT THIS TIME UNTIL DR CULLEN ROUNDS ON PT TODAY AND EVALS NEED OF NEXT DOSE OF ABX THAT IS SCHEDULED AT 1600 TODAY.
[2019-04-24] MEDS ORDERED: predniSONE 20 MG TAB PO SCH (07:00)
--- NOTE | 2019-04-24 07:00 | NUR ---
0700: Received report from Oumou Gaytan RN that patient was placed on room air after she came on shift 1900 04/23. Oumou reports patient maintained 02 sats in low 90s throughout shift. 0800: Patient currently on room air with 02 sats 91%. Patient reports no respiratory distress at this time.
[2019-04-24] MEDS: PANTOPRAZOLE 40 MG (PROTONIX) TAB PO SCH (08:20)
[2019-04-24] MEDS: lisINopril 20 MG (PRINIVIL) TABLET PO SCH (08:20)
[2019-04-24] MEDS: VITAMIN D3 1,000 UNITS (CHOLECALCIFEROL) TABLET PO SCH (08:21)
[2019-04-24] MEDS: NICOTINE 14 MG (NICODERM) PATCH TD SCH (08:23)
[2019-04-24] MEDS: NICOTINE PATCH REMOVAL TP SCH (08:23)
[2019-04-24 08:50] VITALS: BP 151/81
[2019-04-24] MEDS ORDERED: AZITHROMYCIN 250 MG TAB (ZITHROMAX) PO SCH (09:00)
[2019-04-24] MEDS: NS IV 1000 ML 1,000 ML IV SCH (10:10)
[2019-04-24] MEDS ORDERED: CEFD300C3 PO (10:19)
[2019-04-24 11:06] VITALS: BP 151/81
--- NOTE | 2019-04-24 11:13 | Discharge Summary ---
Discharge Summary Hospital Course Was the Problem List Reviewed?: Yes Problems/Dx: (1) Sepsis Status: Resolved Qualifiers: Qualified Codes: A41.9 - Sepsis, unspecified organism (2) Pneumonia Status: Acute Qualifiers: Qualified Codes: J18.1 - Lobar pneumonia, unspecified organism (3) Hypoxia Status: Resolved (4) Tobacco abuse Status: Acute Hospital Course Date of Admission: Apr 23, 2019 at 15:49 Admission Diagnosis : Sepsis due to pneumonia Family Physician/Provider: No,Local Physician Date of Discharge: 04/24/19 Discharge Diagnosis: Sepsis due to pneumonia Hospital Course: Sumaya Mcnally is a 48-year-old female who was admitted with sepsis due to pneumonia. She has a long history of tobacco abuse and likely COPD versus asthma. She was treated with antibiotics for pneumonia and improved. She was treated with steroids for reactive airway disease. She was given a course of the Omnicef to complete as an outpatient for pneumonia. She was given a short burst of steroids for her reactive airway disease. 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 Labs and Pending Lab Test: Laboratory Tests 04/23/19 15:32: Glucometer 138H 04/23/19 20:11: Glucometer 166H 04/24/19 05:44: Glucometer 187H Microbiology 04/22/19 Urine Culture - Final, Complete NO GROWTH 04/22/19 Blood Culture - Preliminary, Resulted No growth 04/22/19 Gram Stain - Final, Complete 04/22/19 Sputum Culture - Final, Complete Usual upper respiratory lakeisha Home Meds Active Cefdinir 300 Mg Capsule 300 Mg PO BID 5 Days Prednisone 20 Mg Tab 40 Mg PO DAILY@0700 [place] 5-325 Tablet (Hydrocodone/Acetaminophen) 1 Each Tablet 1 Tab PO Q8H PRN MDD 10 TABS 7 Days Pulmicort Flexhaler (Budesonide) 90 Mcg Aer.pow.ba 90 Mcg IH BID Flonase Allergy Relief (Fluticasone Propionate) 9.9 Ml [place].susp 2 Sprays NS BID Promethazine-Dm Syrup (D-Methorphan Hb/Prometh HCl) 118 Ml Syrup 1-2 Tsp PO Q4H Tessalon Perles (Benzonatate) 100 Mg Capsule 1-2 Tab PO TID Lortab 7.5 Mg Tablet (Acetaminophen/Hydrocodone Bitart) 1 Each Tablet 1 Each PO Q6H Reported Atorvastatin Calcium 40 Mg Tablet 40 Mg PO HS Lisinopril 20 Mg Tablet 20 Mg PO DAILY Trospium Chloride 20 Mg Tablet 20 Mg PO BID Proair Respiclick (Albuterol Sulfate) 90 Mcg Aer.pow.ba 1-2 Puff IH PRN Flonase Allergy Relief (Fluticasone Propionate) 9.9 Ml [place].susp 1 [place] NS DAILY Vitamin D-3 (Cholecalciferol (Vitamin D3)) 2,000 Unit Capsule 2,000 Unit PO DAILY Cetirizine HCl 10 Mg Tablet 10 Mg PO DAILY Omeprazole 40 Mg Capsule.dr 40 Mg PO DAILY Oxybutynin Chloride ER (Oxybutynin Chloride) 10 Mg Tab.er.24 10 Mg PO DAILY Ibuprofen 800 Mg Tablet 800 Mg PO Q12H PRN Tylenol Extra Strength (Acetaminophen) 500 Mg Tablet 1,000 Mg PO BID Assessment/Pt Instructions Take medications as prescribed. Complete her course of antibiotics even if you're feeling better. Follow-up with your primary care physician. Return with worsening shortness of breath, fevers, or if you feel like you're getting worse. Discharge Planning: <30 minutes discharge planning Discharge Instructions Discharge Diet: No Restrictions, Cardiac Diet Activity as Tolerated: Yes Discharge Physical Examination Vital Signs Vital Signs Date Time Temp Pulse Resp B/P (MAP) Pulse Ox O2 Delivery O2 Flow Rate FiO2 04/24/19 11:06 37.0 104 20 151/81 91 Nasal Cannula 2.00 04/22/19 16:33 21 General Appearance: No Apparent Distress, WD/WN, Obese Respiratory: Lungs Clear, Normal Breath Sounds, No Respiratory Distress Cardiovascular: Regular Rate, Rhythm, No Edema, No Murmur Gastrointestinal: Normal Bowel Sounds, Non Tender Extremity: Normal Inspection, Non Tender, No Pedal Edema Skin: Normal Color, Warm/Dry Neurologic/Psychiatric: Alert, Oriented x3, No Motor/Sensory Deficits, Normal Mood/Affect Allergies: Coded Allergies: naproxen (Verified Allergy, Unknown, 07/30/18) Discharge Summary Date of Admission Apr 23, 2019 at 15:49 Date of Discharge Apr 24, 2019 at 11:08 Discharge Date: Apr 24, 2019 Discharge Time: 11:12 Admission Diagnosis Sepsis due to pneumonia Discharge Diagnosis Sepsis due to pneumonia (1) Sepsis Status: Resolved Qualifiers: Qualified Codes: A41.9 - Sepsis, unspecified organism (2) Pneumonia Status: Acute Qualifiers: Qualified Codes: J18.1 - Lobar pneumonia, unspecified organism (3) Hypoxia Status: Resolved (4) Tobacco abuse Status: Acute Clinical Quality Measures DVT/VTE Risk/Contraindication: Risk Factor Score Per Nursin RFS Level Per Nursing on Admit: 2=Moderate MANAN CULLEN MD Apr 24, 2019 11:13
--- NOTE | 2019-04-24 14:50 | NUR ---
CM DISCHARGE PLANNING: Patient discharged to home on this date. It appears that an o2 study was completed by RT on 04/23 et it indicated that the patient needed oxygen continuous at 4LPM. F/U with primary care nurse Isis et Dr. Rodriguez. Isis indicated that the patient reported that she wanted to be dismissed today et did not want oxygen. She reports that she was weaned over night from the oxygen et was on room air when Isis took over her care this a.m. Both Isis et Dr. Rodriguez report that the patient was on room air et had saturations of 91% upon dismissal to home.
== END 2019-04-24 11:08 | disposition home or self-care (01) | DRG 871 ==
LOC: EDUNIT# 15:21 → ER 15:23 → 4TH 15:55 → OBSVTOIN 04-23 15:49
PROVIDERS: ADMIT Family Medicine; ATTEND Family Medicine
DX: A41.9 Sepsis, unspecified organism (principal); J18.9 Pneumonia, unspecified organism; Z68.42 Body mass index [BMI] 45.0-49.9, adult; F17.210 Nicotine dependence, cigarettes, uncomplicated; G43.909 Migraine, unspecified, not intractable, without status migrainosus; E66.9 Obesity, unspecified; H54.3 Unqualified visual loss, both eyes; M19.90 Unspecified osteoarthritis, unspecified site; K21.9 Gastro-esophageal reflux disease without esophagitis; F42.9 Obsessive-compulsive disorder, unspecified; F41.9 Anxiety disorder, unspecified; I10 Essential (primary) hypertension; R73.9 Hyperglycemia, unspecified; T38.0X5A Adverse effect of glucocorticoids and synthetic analogues, initial encounter; N32.81 Overactive bladder; E78.5 Hyperlipidemia, unspecified; R09.02 Hypoxemia; J45.909 Unspecified asthma, uncomplicated; Z90.710 Acquired absence of both cervix and uterus; Z79.52 Long term (current) use of systemic steroids; Z79.1 Long term (current) use of non-steroidal anti-inflammatories (NSAID); Z87.440 Personal history of urinary (tract) infections; Z85.43 Personal history of malignant neoplasm of ovary
CPT/HCPCS: 36415; 71046; 80053; 81000; 82962; 83605; 83880; 85025; 85610; 85730; 87040; 87070; 87088; 87205; 87449; 87899; 94640; 94664; 94760; 94761

== ENCOUNTER 2019-05-01 18:50 | Emergency (ER) | payer OTHER ==
[~2019-05-01] VITALS: Ht 157.5 cm; Wt 127.3 kg
[~2019-05-01 18:50] MED LIST changes: +ATOR40TA70 PO; +LISI-552 PO; -OMEP-280 PO; +OMEP20CA18 PO; -OXYB10TA2 PO; +OXYB10TA29 PO; +PRD20T PO; +TROS20TA3 PO
--- NOTE | 2019-05-01 19:58 | ED General ---
General Chief Complaint: General Problems/Pain Stated Complaint: MID BACK PN, L ABD PN, CANT SLEEP Nursing Triage Note: Pt amb to triage with complaint of back pain that radiates around the side to the front along her bra line. states the pain is just left sided. states there is a bubbled appearance. was discharged a week ago today from the hospital for pneumonia. Nursing Sepsis Screen: No Definite Risk Source of Information: Patient Exam Limitations: No Limitations History of Present Illness Date Seen by Provider: May 01, 2019 Time Seen by Provider: 19:57 Initial Comments To ER with left lateral thorax pain worse with movement and laughing coughing deep breathing. Recently in the hospital for left-sided pneumonia. Timing/Duration: 1-2 Days Severity: Moderate Allergies and Home Medications Allergies Coded Allergies: naproxen (Verified Allergy, Unknown, 05/01/19) can take ibuprofen Home Medications Acetaminophen 500 Mg Tablet, 1,000 MG PO BID, (Reported) Albuterol Sulfate 90 Mcg Aer.pow.ba, 1-2 PUFF IH PRN, (Reported) Atorvastatin Calcium 40 Mg Tablet, 40 MG PO HS, (Reported) Benzonatate 100 Mg Capsule, 1-2 TAB PO TID Prescribed by: ALANA SELF on 07/30/182012 Budesonide 90 Mcg Aer.pow.ba, 90 MCG IH BID Prescribed by: ALANA SELF on 07/30/182013 Cefdinir 300 Mg Capsule, 300 MG PO BID Prescribed by: MANAN CULLEN on 04/24/19 1019 Cetirizine HCl 10 Mg Tablet, 10 MG PO DAILY, (Reported) Cholecalciferol (Vitamin D3) 2,000 Unit Capsule, 2,000 UNIT PO DAILY, (Reported) D-Methorphan Hb/Prometh HCl 118 Ml Syrup, 1-2 TSP PO Q4H Prescribed by: ALANA SELF on 07/30/182012 Fluticasone Propionate 9.9 Ml [place].susp, 1 SPRAY NS DAILY, (Reported) Fluticasone Propionate 9.9 Ml [place].susp, 2 SPRAYS NS BID Prescribed by: ALANA SELF on 07/30/182012 Hydrocodone Bit/Acetaminophen 1 Each Tablet, 1 EACH PO Q6H Prescribed by: GILBERT CHERRY on 03/27/15 1612 Hydrocodone/Acetaminophen 1 Each Tablet, 1 TAB PO Q8H PRN for COUGH Prescribed by: ZELALEM FRANKLIN on 08/09/18 1547 Ibuprofen 800 Mg Tablet, 800 MG PO Q12H PRN for PAIN, (Reported) Lisinopril 20 Mg Tablet, 20 MG PO DAILY, (Reported) Omeprazole 40 Mg Capsule.dr, 40 MG PO DAILY, (Reported) Oxybutynin Chloride 10 Mg Tab.er.24, 10 MG PO DAILY, (Reported) Prednisone 20 Mg Tab, 40 MG PO DAILY@0700 Prescribed by: MICHELLE LEYVA on 04/23/19 1116 Trospium Chloride 20 Mg Tablet, 20 MG PO BID, (Reported) Patient Home Medication List Home Medication List Reviewed: Yes Review of Systems Review of Systems Constitutional: see HPI EENTM: see HPI Respiratory: no symptoms reported Cardiovascular: no symptoms reported Genitourinary: no symptoms reported Musculoskeletal: see HPI, back pain Skin: no symptoms reported Psychiatric/Neurological: No Symptoms Reported Hematologic/Lymphatic: No Symptoms Reported Past Cnrjame-Aurqht-Wglyic Hx Patient Social History Alcohol Use: Denies Use Recreational Drug Use: No Smoking Status: Current Everyday Smoker Type Used: Cigarettes 2nd Hand Smoke Exposure: Yes Recent Foreign Travel: No Contact w/Someone Who Travel: No Recent Infectious Disease Expo: No Recent Hopitalizations: No Immunizations Up To Date Tetanus Booster (TDap): Unknown PED Vaccines UTD: Yes Seasonal Allergies Seasonal Allergies: Yes Past Medical History Surgeries: Yes (HYST/BSO 1999) Oophorectomy Respiratory: Yes Pneumonia, Chronic Bronchitis Cardiac: Yes (MURMUR SINCE ) High Cholesterol, Hypertension Neurological: Yes Headaches /Migraines 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 Sexually Transmitted Disease: Yes (HX HERPES) HIV/AIDS: No Genitourinary: Yes Bladder Infection Gastrointestinal: Yes Gastroesophageal Reflux Musculoskeletal: Yes Arthritis Endocrine: Yes (OBESITY) HEENT: No Loss of Vision: Bilateral Cancer: Yes Ovarian Did You Recieve Any Treatments: Yes What Type of Treatment Did You: Surgical Intervention Psychosocial: No Anxiety Integumentary: No Blood Disorders: No Adverse Reaction/Blood Tranf: No (N/A) Family Medical History Heart Disease, Cancer, Diabetes Physical Exam Vital Signs Vital Signs - First Documented 05/01/19 19:11 Temp 36.8 Pulse 85 Resp 20 B/P (MAP) 174/123 (140) Pulse Ox 95 O2 Delivery Room Air Capillary Refill : Less Than 3 Seconds Height, Weight, BMI Height: 5'6.00" Weight: 260lbs. 0.0oz. 117.493067km; 51.00 BMI Method:Estimated General Appearance: No Apparent Distress, WD/WN Eyes: Bilateral Eye Normal Inspection, Bilateral Eye PERRL, Bilateral Eye EOMI Respiratory: No Accessory Muscle Use, No Respiratory Distress Cardiovascular: Regular Rate, Rhythm, Normal Peripheral Pulses Gastrointestinal: Non Tender, Soft Back: Normal Inspection, Other (no rash or erythema) Extremity: Normal Capillary Refill, Normal Inspection Neurologic/Psychiatric: Alert, Oriented x3 Progress/Results/Core Measures Suspected Sepsis Recent Fever Within 48 Hours: No Infection Criteria Present: None New/Unexplained Altered Menta: No Sepsis Screen: No Definite Risk SIRS Temperature: Pulse: 85 Respiratory Rate: 20 Blood Pressure 174 /123 Mean: 140 Results/Orders My Orders Orders - ZELALEM FRANKLIN APRN Chest Pa/Lat (2 View) (05/01/19 19:50) Ketorolac Injection (Toradol Injection) (05/01/19 20:00) Vital Signs/I&O 05/01/19 19:11 Temp 36.8 Pulse 85 Resp 20 B/P (MAP) 174/123 (140) Pulse Ox 95 O2 Delivery Room Air Capillary Refill : Less Than 3 Seconds Blood Pressure Mean: 140 Departure Impression Primary Impression: Pleurisy Disposition: 01 HOME, SELF-CARE Condition: Stable (Here) Departure-Patient Inst. Decision time for Depature: 20:00 Referrals: NO,LOCAL PHYSICIAN (PCP/Family) Primary Care Physician Patient Instructions: Pleuritic Chest Pain (DC), Pleural Effusion (DC) ZELALEM FRANKLIN APRN May 01, 2019 19:58
[2019-05-01] MEDS ORDERED: KETOROLAC 60 MG/2 ML VIAL IM ONE (20:00)
--- NOTE | 2019-05-01 20:02 | Diagnostic Imaging Report ---
INDICATION: Cough. Comparison made with prior examination 04/22/2019. FINDINGS: Heart size is normal. There appears to be some degree of COPD. There is no pleural effusion, pneumothorax or pneumonia. Mediastinum is unremarkable. IMPRESSION: COPD No other acute cardiopulmonary abnormality. Dictated by: Dictated on workstation # [id number]
[2019-05-01 20:10] VITALS: BP 155/90
[2019-05-01] MEDS ORDERED: RX-HYDROCODONE/APAP 5/325 MG #4 TAB PK PO PRN (20:15)
== END 2019-05-01 20:10 | disposition home or self-care (01) ==
LOC: EDUNIT# 18:50 → ER 18:53
DX: R09.1 Pleurisy (principal); I10 Essential (primary) hypertension; E78.00 Pure hypercholesterolemia, unspecified; K21.9 Gastro-esophageal reflux disease without esophagitis; F41.9 Anxiety disorder, unspecified; E66.9 Obesity, unspecified; F17.210 Nicotine dependence, cigarettes, uncomplicated; Z79.51 Long term (current) use of inhaled steroids; Z88.6 Allergy status to analgesic agent; Z82.49 Family history of ischemic heart disease and other diseases of the circulatory system
CPT/HCPCS: 71046; 96372

== ENCOUNTER 2019-05-29 22:38 | Inpatient (IN) | payer OTHER ==
[~2019-05-29] VITALS: Ht 157.5 cm; Wt 133.0 kg
[2019-05-29] MEDS ORDERED: NS IV 1000 ML 1,000 ML IV SCH (22:43)
[2019-05-29] MEDS ORDERED: RT-ALBUTEROL/IPRATROPIUM 3 ML (DUONEB) VIAL ONE (23:15)
[2019-05-29] MEDS ORDERED: DEXAMETHASONE 4 MG/ML SDV (DECADRON) ONE (23:16)
[2019-05-29] MEDS ORDERED: RT-ALBUTEROL SULF 2.5 MG/3 ML PRE-MIX VIAL INH STA (23:18)
--- NOTE | 2019-05-29 23:25 | ED Respiratory ---
General Chief Complaint: Respiratory Problems Stated Complaint: SOB Source: patient History of Present Illness Date Seen by Provider: May 29, 2019 Time Seen by Provider: 22:58 Initial Comments PT ARRIVES VIA POV FROM HOME, NEEDS WHEELCHAIR ON ARRIVAL PT STATES "I HAVE PNEUMONIA" C/O SHORTNESS OF BREATH C/O NON-PRODUCTIVE COUGH C/O CHEST TIGHTNESS DUE TO DIFFICULTY BREATHING HAS HAD SUBJECTIVE FEVER/SWEATS/CHILLS-HAS NOT CHECKED TEMP AT ANY TIME HAS CHRONIC LEG SWELLING AND IS NO DIFFERENT TODAY DENIES THAT SHE HAS COPD, BUT SMOKES > 1 PPD, AND USES NEB TREATMENTS EVERY 6 HOURS LAST ALBUTEROL TREATMENT WAS AT 1900, NO RELIEF PT STATES SHE WAS ADMITTED 04/22/19-04/24/19 FOR PNEUMONIA STATES SHE "NEVER GOT OVER IT" SEEN HERE 05/01/19 AND DX WITH PLEURISY SYMPTOMS HAVE BEEN WORSE FOR THE LAST 2 WEEKS PT GOES TO [facility] IN [place]STATES "THEY COULDN'T DO ANY TESTS, SO THEY TOLD ME TO GO TO [facility]" WENT TO [facility] LAST Wednesday05/25/19--NO TESTS WERE DONE, BUT WAS DX WITH "PNEUMONIA" AND GIVEN RX FOR LEVAQUIN PT DOES NOT HAVE HOME O2, NEVER BEEN TOLD SHE NEEDED IT O2 SAT IS 78% ON ROOM AIR ON ARRIVAL PT TALKING IN 1-2 WORD PHRASES ON ARRIVAL. STATES HER GRAND DAUGHTER WAS RECENTLY TREATED FOR STREP, OTHERWISE NO ONE ELSE IS ILL AND NO KNOWN EXPOSURE TO FLU OR COHN VIRUS. NO RECENT TRAVEL. PCP: [facility] [place] Allergies and Home Medications Allergies Coded Allergies: naproxen (Verified Allergy, Unknown, 05/01/19) can take ibuprofen Home Medications Acetaminophen 500 Mg Tablet, 1,000 MG PO BID, (Reported) Albuterol Sulfate 90 Mcg Aer.pow.ba, 1-2 PUFF IH PRN, (Reported) Atorvastatin Calcium 40 Mg Tablet, 40 MG PO HS, (Reported) Benzonatate 100 Mg Capsule, 1-2 TAB PO TID Prescribed by: ALANA SELF on 07/30/182012 Budesonide 90 Mcg Aer.pow.ba, 90 MCG IH BID Prescribed by: ALANA SELF on 07/30/182013 Cefdinir 300 Mg Capsule, 300 MG PO BID Prescribed by: MANAN CULLEN on 04/24/19 1019 Cetirizine HCl 10 Mg Tablet, 10 MG PO DAILY, (Reported) Cholecalciferol (Vitamin D3) 2,000 Unit Capsule, 2,000 UNIT PO DAILY, (Reported) D-Methorphan Hb/Prometh HCl 118 Ml Syrup, 1-2 TSP PO Q4H Prescribed by: ALANA SELF on 07/30/182012 Fluticasone Propionate 9.9 Ml [place].susp, 1 SPRAY NS DAILY, (Reported) Fluticasone Propionate 9.9 Ml [place].susp, 2 SPRAYS NS BID Prescribed by: ALANA SELF on 07/30/182012 Hydrocodone Bit/Acetaminophen 1 Each Tablet, 1 EACH PO Q6H Prescribed by: GILEBRT CHERRY on 03/27/15 1612 Hydrocodone/Acetaminophen 1 Each Tablet, 1 TAB PO Q8H PRN for COUGH Prescribed by: ZELALEM FRANKLIN on 08/09/18 1547 Ibuprofen 800 Mg Tablet, 800 MG PO Q12H PRN for PAIN, (Reported) Lisinopril 20 Mg Tablet, 20 MG PO DAILY, (Reported) Omeprazole 40 Mg Capsule.dr, 40 MG PO DAILY, (Reported) Oxybutynin Chloride 10 Mg Tab.er.24, 10 MG PO DAILY, (Reported) Prednisone 20 Mg Tab, 40 MG PO DAILY@0700 Prescribed by: MICHELLE LEYVA on 04/23/19 1116 Trospium Chloride 20 Mg Tablet, 20 MG PO BID, (Reported) Patient Home Medication List Home Medication List Reviewed: Yes Review of Systems Review of Systems Constitutional: see HPI, fever EENTM: nose congestion (CHRONIC ); No throat pain Respiratory: see HPI, cough, dyspnea on exertion; No phlegm; short of breath, wheezing Cardiovascular: see HPI, chest pain, edema; No palpitations, No syncope Gastrointestinal: no symptoms reported Genitourinary: no symptoms reported Musculoskeletal: no symptoms reported Skin: no symptoms reported Psychiatric/Neurological: No Symptoms Reported Hematologic/Lymphatic: No Symptoms Reported Immunological/Allergic: no symptoms reported Past Mbmtmld-Orcegs-Qqmzkp Hx Past Med/Social Hx: Reviewed and Corrections made Patient Social History Alcohol Use: Denies Use Recreational Drug Use: No Smoking Status: Current Everyday Smoker (> 1 PPD) Type Used: Cigarettes (> 1 PPD) 2nd Hand Smoke Exposure: Yes Recent Foreign Travel: No Contact w/Someone Who Travel: No Recent Hopitalizations: Yes (04/22/19-04/24/19 FOR PNEUMONIA) Immunizations Up To Date Tetanus Booster (TDap): Unknown PED Vaccines UTD: Yes Seasonal Allergies Seasonal Allergies: Yes Past Medical History Surgeries: Yes (HYST/BSO 2000;INEZ; BILAT CARPAL TUNNEL) Gallbladder, Hysterectomy, Oophorectomy, Orthopedic Respiratory: Yes (SMOKES > 1 PPD) Pneumonia, Chronic Bronchitis, COPD Cardiac: Yes (MURMUR SINCE ) Chronic Edema/Swelling, High Cholesterol, Hypertension Neurological: Yes Headaches /Migraines 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 Sexually Transmitted Disease: Yes (HX HERPES) HIV/AIDS: No Genitourinary: Yes Bladder Infection Gastrointestinal: Yes (S/P INEZ) Gastroesophageal Reflux, Gall Bladder Disease Musculoskeletal: Yes (S/P BILAT CARPAL TUNNEL REPAIR) Arthritis Endocrine: Yes (OBESITY) HEENT: No Loss of Vision: Bilateral Cancer: Yes Ovarian Did You Recieve Any Treatments: Yes What Type of Treatment Did You: Surgical Intervention Psychosocial: Yes Anxiety Integumentary: No Blood Disorders: No Adverse Reaction/Blood Tranf: No (N/A) Family Medical History Heart Disease, Cancer, Diabetes Physical Exam Vital Signs - First Documented 05/29/19 22:53 Temp 36.9 Pulse 106 Resp 30 B/P (MAP) 169/117 (134) Pulse Ox 94 O2 Delivery Nasal Cannula O2 Flow Rate 4.00 Capillary Refill : Height: 5'6.00" Weight: 260lbs. 0.0oz. 117.211339ss; 51.00 BMI Method:Estimated General Appearance: moderate distress, obese (MORBIDLY), other (REEKS OF CIGARETTES) HEENT: PERRL/EOMI Neck: normal inspection Respiratory: respiratory distress, decreased breath sounds (IN ALL LUNG RAMIREZ), accessory muscle use, wheezing (DIFFUSE TIGHT WHEEZING IN ALL LUNG RAMIREZ), other (TAKS IN 1-2 WORD PHRASES) Cardiovascular: no murmur (NO MURMUR NOTED AT THIS TIME), tachycardia (108) Gastrointestinal: soft Extremities: normal inspection, no calf tenderness, pedal edema (1+ EDEMA, WITH CHRONIC VENOUS STASIS CHANGES TO BILATERAL LOWER LEGS. ) Neurologic/Psychiatric: no motor/sensory deficits, alert, normal mood/affect, oriented x 3 Skin: normal color, warm/dry Focused Exam Lactate Level 05/29/19 23:31: Lactic Acid Level 1.45 Lactic Acid Level Laboratory Tests Test 05/29/19 23:31 Lactic Acid Level 1.45 MMOL/L (0.50-2.00) Progress/Results/Core Measures Suspected Sepsis SIRS Temperature: Pulse: Respiratory Rate: Laboratory Tests 05/29/19 23:31: White Blood Count 10.8 Blood Pressure / Mean: 05/29/19 23:31: Lactic Acid Level 1.45 Laboratory Tests 05/29/19 23:31: Creatinine 1.01, INR Comment 1.0, Platelet Count 148, Total Bilirubin 0.4 Results/Orders Lab Results Laboratory Tests Test 05/29/19 00:50 05/29/19 23:15 05/29/19 23:31 05/29/19 23:36 Range/Units Urine Color YELLOW Urine Clarity CLEAR Urine pH 6.0 5-9 Urine Specific [place] 1.015 L 1.016-1.022 Urine Protein NEGATIVE NEGATIVE Urine Glucose (UA) NEGATIVE NEGATIVE Urine Ketones NEGATIVE NEGATIVE Urine Nitrite NEGATIVE NEGATIVE Urine Bilirubin NEGATIVE NEGATIVE Urine Urobilinogen 0.2 < = 1.0 MG/DL Urine Leukocyte Esterase NEGATIVE NEGATIVE Urine RBC (Auto) 1+ H NEGATIVE Urine RBC NONE /HPF Urine WBC NONE /HPF Urine Squamous Epithelial Cells 2-5 /HPF Urine Crystals NONE /LPF Urine Bacteria NEGATIVE /HPF Urine Casts NONE /LPF Urine Mucus NEGATIVE /LPF Urine Culture Indicated NO Urine Opiates Screen NEGATIVE NEGATIVE Urine Oxycodone Screen NEGATIVE NEGATIVE Urine Methadone Screen NEGATIVE NEGATIVE Urine Propoxyphene Screen NEGATIVE NEGATIVE Urine Barbiturates Screen NEGATIVE NEGATIVE Ur Tricyclic Antidepressants Screen NEGATIVE NEGATIVE Urine Phencyclidine Screen NEGATIVE NEGATIVE Urine Amphetamines Screen NEGATIVE NEGATIVE Urine Methamphetamines Screen NEGATIVE NEGATIVE Urine Benzodiazepines Screen NEGATIVE NEGATIVE Urine Cocaine Screen NEGATIVE NEGATIVE Urine Cannabinoids Screen NEGATIVE NEGATIVE Group A Streptococcus Screen NEGATIVE NEGATIVE White Blood Count 10.8 4.3-11.0 10^3/uL Red Blood Count 4.40 4.35-5.85 10^6/uL Hemoglobin 15.1 11.5-16.0 G/DL Hematocrit 46 35-52 % Mean Corpuscular Volume 104 H 80-99 FL Mean Corpuscular Hemoglobin 34 25-34 PG Mean Corpuscular Hemoglobin Concent 33 32-36 G/DL Red Cell Distribution Width 17.1 H 10.0-14.5 % Platelet Count 148 130-400 10^3/uL Mean Platelet Volume 10.4 7.4-10.4 FL Neutrophils (%) (Auto) 65 42-75 % Lymphocytes (%) (Auto) 25 12-44 % Monocytes (%) (Auto) 9 0-12 % Eosinophils (%) (Auto) 1 0-10 % Basophils (%) (Auto) 0 0-10 % Neutrophils # (Auto) 7.1 1.8-7.8 X 10^3 Lymphocytes # (Auto) 2.7 1.0-4.0 X 10^3 Monocytes # (Auto) 0.9 0.0-1.0 X 10^3 Eosinophils # (Auto) 0.1 0.0-0.3 10^3/uL Basophils # (Auto) 0.0 0.0-0.1 10^3/uL Prothrombin Time 13.1 12.2-14.7 SEC INR Comment 1.0 0.8-1.4 Activated Partial Thromboplast Time 30 24-35 SEC Sodium Level 142 135-145 MMOL/L Potassium Level 3.6 3.6-5.0 MMOL/L Chloride Level 102 98-107 MMOL/L Carbon Dioxide Level 28 21-32 MMOL/L Anion Gap 12 5-14 MMOL/L Blood Urea Nitrogen 11 7-18 MG/DL Creatinine 1.01 0.60-1.30 MG/DL Estimat Glomerular Filtration Rate 58 BUN/Creatinine Ratio 11 Glucose Level 133 H 70-105 MG/DL Lactic Acid Level 1.45 0.50-2.00 MMOL/L Calcium Level 9.2 8.5-10.1 MG/DL Corrected Calcium 9.4 8.5-10.1 MG/DL Magnesium Level 2.1 1.6-2.4 MG/DL Total Bilirubin 0.4 0.1-1.0 MG/DL Aspartate Amino Transf (AST/SGOT) 17 5-34 U/L Alanine Aminotransferase (ALT/SGPT) 17 0-55 U/L Alkaline Phosphatase 100 40-136 U/L Troponin I 0.030 H <0.028 NG/ML B-Type Natriuretic Peptide 48.5 <100.0 PG/ML Total Protein 7.4 6.4-8.2 GM/DL Albumin 3.8 3.2-4.5 GM/DL Procalcitonin 0.03 <0.10 NG/ML Monoscreen NEGATIVE NEGATIVE Blood Gas Puncture Site LEFT RADIAL Blood Gas Patient Temperature 36.5 Arterial Blood pH 7.37 7.37-7.43 Arterial Blood Partial Pressure CO2 57 H 35-45 MMHG Arterial Blood Partial Pressure O2 114 H 79-93 MMHG Arterial Blood HCO3 32 H 23-27 MMOL/L Arterial Blood Total CO2 34.0 H 21.0-31.0 MMOL/L Arterial Blood Oxygen Saturation 99 94-100 % Arterial Blood Base Excess 6.8 H -2.5-2.5 MMOL/L Rodrigo Test YES-POS Blood Gas Ventilator Setting NO Blood Gas Inspired Oxygen 4L Micro Results Microbiology 05/29/19 Influenza Types A,B Antigen (CHIP) - Final, Complete My Orders Orders - ALANA SELF DO BNP (05/29/19 22:43) Cbc With Automated Diff (05/29/19 22:43) Comprehensive Metabolic Panel (05/29/19 22:43) Lactic Acid Analyzer (05/29/19 22:43) Magnesium (05/29/19 22:43) Monotest (05/29/19 22:43) Protime With Inr (05/29/19 22:43) Partial Thromboplastin Time (05/29/19 22:43) Rapid Strep A Screen (05/29/19 22:43) Blood Culture (05/29/19 22:43) Influenza A And B Antigens (05/29/19 22:43) Ekg Tracing (05/29/19 22:43) Monitor-Rhythm Ecg Trace Only (05/29/19 22:43) Chest 1 View, Ap/Pa Only (05/29/19 22:43) Sputum Culture (05/29/19 22:43) Urinalysis (05/29/19 22:43) Urine Culture (05/29/19 22:43) Ed Iv/Invasive Line Start (05/29/19 22:43) Ed Iv/Invasive Line Start (05/29/19 22:43) Vital Signs Adult Sepsis Patie Q15M (05/29/19 22:43) O2 (05/29/19 22:43) Remove Rings In Anticipation O (05/29/19 22:43) Ed Iv/Invasive Line Start (05/29/19 22:43) Ns Iv 1000 Ml (Sodium Chloride 0.9%) (05/29/19 22:43) Albuterol Pre-Mix Nebs (Rt) (Proventil (05/29/19 23:18) Albuterol/Ipra Inhalation Soln (Duoneb I (05/29/19 23:30) Dexamethasone Injection (Decadron Inject (05/29/19 23:30) Svn Small Volume Nebulizer (05/29/19 23:18) Svn Small Volume Nebulizer (05/29/19 23:18) Arterial Blood Gas (05/29/19 23:18) Troponin I (05/29/19 23:18) Albuterol/Ipra Inhalation Soln (Duoneb I (05/29/19 23:15) Dexamethasone Injection (Decadron Inject (05/29/19 23:16) Drug Screen Stat (Urine) (05/29/19 23:26) Arterial Blood Draw (05/29/19 ) Procalcitonin (Pct) (05/30/19 00:08) Cefepime Injection (Maxipime Injection) (05/30/19 00:15) Vancomycin Injection (Vancomycin Injecti (05/30/19 00:15) Medications Given in ED Current Medications Medications Dose Ordered Sig/Carlos Route Start Time Stop Time Status Last Admin Dose Admin Albuterol/ Ipratropium 3 ml STK-MED ONCE .ROUTE 05/29/19 23:15 05/29/19 23:22 DC 05/29/19 23:49 3 ML Cefepime HCl 2000 mg/Sterile Water 20 ml @ 240 mls/hr ONCE ONCE IV 05/30/19 00:15 05/30/19 00:19 DC 05/30/19 00:26 240 MLS/HR Dexamethasone Sodium Phosphate 4 mg STK-MED ONCE .ROUTE 05/29/19 23:16 05/29/19 23:23 DC 05/29/19 23:49 4 MG Vital Signs/I&O 05/29/19 05/29/19 05/29/19 22:53 23:50 23:50 Temp 36.9 36.9 Pulse 106 106 Resp 30 30 B/P (MAP) 169/117 (134) 169/117 Pulse Ox 94 99 99 O2 Delivery Nasal Cannula O2 Flow Rate 4.00 4.00 4.00 Capillary Refill : Progress Note : Progress Note PPE DONNED BY MYSELF AND RN BEFORE PT WAS TAKEN TO ROOM. PPE WORN AT ALL TIMES WHEN IN ROOM OR WITH ANY CONTACT WITH PT. O2 SAT 78% ON ROOM AIR ON ARRIVAL. PLACED ON O2 AT 4L/NC WITH O2 SATS UP TO 96% GIVEN NEB TREATMENT DUE TO RESPIRATORY DISTRESS AND HYPOXIA STEROIDS HELD AT THIS TIME, PENDING COVID 19 TEST RESULTS. VAPOTHERM AND BIPAP HELD AT THIS TIME, PENDING COVID 19 RESULTS. PT WITH MUCH IMPROVEMENT WITH O2 AND NEB TREATMENT RESPIRATIONS MUCH LESS LABORED, PT WITH INCREASED AERATION O2 SATS REMAIN IN MID TO UPPER 90'S ON O2 AT 4L/NC NO DETERIORATION IN PT'S CONDITION DURING ER STAY NO HYPOTENSION. NO FEVER DURING ER STAY ECG Initial ECG Impression Date: May 29, 2019 Initial ECG Impression Time: 23:06 Initial ECG Rate: 107 Initial ECG Rhythm: S.Tach Diagnostic Imaging Comments CXR--BIBASILAR ATELECTASIS, PENDING RADIOLOGIST REVIEW Reviewed: Reviewed by Me Departure Communication (Admissions) 0015--SPOKE WITH DR. OLIVARES, HOSPITALIST, ACCEPTS PT FOR ADMIT 0021--SPOKE WITH E-ICU PHYSICIAN, AGREES WITH PLAN OF CARE. Impression Primary Impression: Acute respiratory failure with hypoxia and hypercapnia Additional Impressions: COPD exacerbation Failure of outpatient treatment Smoker Disposition: ADMITTED INPATIENT Condition: Improved Admissions Decision to Admit Reason: Admit from ER (General) Decision to Admit/Date: May 30, 2019 Time/Decision to Admit Time: 00:15 Departure-Patient Inst. Referrals: NO,LOCAL PHYSICIAN (PCP/Family) Primary Care Physician ALANA SELF DO May 29, 2019 23:25
[2019-05-29] MEDS ORDERED: RT-ALBUTEROL/IPRATROPIUM 3 ML (DUONEB) VIAL INH ONE (23:30)
[2019-05-29] MEDS ORDERED: DEXAMETHASONE 4 MG/ML SDV (DECADRON) IH ONE (23:30)
[2019-05-29 23:43] LABS: BASOPHILS % (AUTO) 0 % (0-10); EOSINOPHILS # (AUTO) 0.1 10^3/uL (0.0-0.3); EOSINOPHILS % (AUTO) 1 % (0-10); HEMATOCRIT 46 % (35-52); HEMOGLOBIN 15.1 G/DL (11.5-16.0); LYMPHOCYTES # (AUTO) 2.7 X 10^3 (1.0-4.0); LYMPHOCYTES % (AUTO) 25 % (12-44); MEAN CORPUSCULAR HEMOGLOBIN 34 PG (25-34); MEAN CORPUSCULAR HGB CONC 33 G/DL (32-36); MEAN CORPUSCULAR VOLUME 104 FL (80-99); MEAN PLATELET VOLUME 10.4 FL (7.4-10.4); MONOCYTES # (AUTO) 0.9 X 10^3 (0.0-1.0); MONOCYTES % (AUTO) 9 % (0-12); NEUTROPHILS # (AUTO) 7.1 X 10^3 (1.8-7.8); NEUTROPHILS % (AUTO) 65 % (42-75); PLATELET COUNT 148 10^3/uL (130-400); RED CELL DISTRIBUTION WIDTH 17.1 % (10.0-14.5); WHITE BLOOD COUNT 10.8 10^3/uL (4.3-11.0)
[2019-05-29 23:47] LABS: ABG BASE EXCESS 6.8 MMOL/L (-2.5-2.5); ABG OXYGEN SATURATION 99 % (94-100); ABG PCO2 57 MMHG (35-45); ABG PH 7.37 (7.37-7.43); ABG PO2 114 MMHG (79-93)
[2019-05-29 23:48] LABS: ALLENS TEST YES-POS; INSPIRED O2 4L; PATIENT TEMP 36.5; VENTILATOR NO
[2019-05-29 23:53] LABS: PROTHROMBIN TIME PATIENT 13.1 SEC (12.2-14.7)
[2019-05-30] VITALS (25 sets, daily range): BP systolic 91–162; BP diastolic 64–125
[2019-05-30 00:03] LABS: ALBUMIN 3.8 GM/DL (3.2-4.5); BILIRUBIN,TOTAL 0.4 MG/DL (0.1-1.0); CALCIUM 9.2 MG/DL (8.5-10.1); CREATININE SERUM 1.01 MG/DL (0.60-1.30); MAGNESIUM 2.1 MG/DL (1.6-2.4); POTASSIUM 3.6 MMOL/L (3.6-5.0); TOTAL PROTEIN 7.4 GM/DL (6.4-8.2)
[2019-05-30] MEDS ORDERED: CEFEPIME INJECTION 2,000 MG in WATER (STERILE) FOR INJECTION 20 ML IV ONE (00:15)
[2019-05-30] MEDS ORDERED: AZITHROMYCIN 500 MG (ZITHROMAX) VIAL ONE (00:25)
[2019-05-30] MEDS ORDERED: NS (IVPB) 250 ML ONE (00:25)
[2019-05-30] MEDS: VANCOMYCIN INJECTION 1,000 MG in NS (IVPB) 250 ML IV SCH ×3 (00:26→09:39)
[2019-05-30] MEDS ORDERED: AZITHROMYCIN INJECTION 500 MG in NS (IVPB) 250 ML IV ONE (00:30)
[2019-05-30] MEDS ORDERED: ONDANSETRON 4 MG/2 ML (SDV) Z0FRAN ONE (00:48)
--- OUTSIDE RECORDS SUMMARY | 2019-05-30 00:55 | XMS REPORT | Clinical Summary ---
Author Author [facility] Organization [facility] Address Unknown Phone Unavailable Care Team Providers Care National Sales Representative Name Role Phone PCP Unavailable Allergies Not on File Medications Not on file Active Problems Not on file Social History Date Tobacco Use Types Packs/Day Years Used Never Assessed Sex Assigned at Date Recorded Not on file Industry Job Start Date Occupation Not on file Not on file Not on file Travel End Travel History Travel Start No recent travel history available. Last Filed Vital Signs Not on file Plan of Treatment Not on file Results Not on filefrom Last 3 Months
--- OUTSIDE RECORDS SUMMARY | 2019-05-30 00:55 | XMS REPORT | Encounter Summary ---
Author Author [facility] Address Unknown Phone Unavailable Care Team Providers Care Still Runner Name Role Phone PCP Unavailable Encounter Details Care Team Description Date Type Department Gómez Cassidy 02/13/2010 Hist-Telephone [facility] [address] [place] [address] Social History Date Tobacco Use Types Packs/Day Years Used Never Assessed Sex Assigned at Date Recorded Not on file Industry Job Start Date Occupation Not on file Not on file Not on file Travel End Travel History Travel Start No recent travel history available. documented as of this encounter Miscellaneous Notes * Clinic Note - Gómez Cassidy - 02/13/2010 9:49 PM [employer] 02/14/10 Pre-pay to [facility] documented in this encounter Plan of Treatment Not on filedocumented as of this encounter Visit Diagnoses Not on filedocumented in this encounter
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
--- OUTSIDE RECORDS SUMMARY | 2019-05-30 00:55 | XMS REPORT | Encounter Summary ---
Author Author [facility] Address Unknown Phone Unavailable Care Team Providers Care Project Manager/Team Coach Name Role Phone PCP Unavailable Encounter Details Care Team Description Date Type Department [place], G[place]mez 03/11/2009 Hist-Telephone [place] [facility] [address] [facility] [address] [place] [address] Social History Date Tobacco Use Types Packs/Day Years Used Never Assessed Sex Assigned at Date Recorded Not on file Industry Job Start Date Occupation Not on file Not on file Not on file Travel End Travel History Travel Start No recent travel history available. 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 documented in this encounter Plan of Treatment Not on filedocumented as of this encounter Visit Diagnoses Not on filedocumented in this encounter
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
--- OUTSIDE RECORDS SUMMARY | 2019-05-30 00:56 | XMS REPORT | Continuity of Care Document ---
Author Organization Unknown Address Unknown Phone Unavailable Allergies Active Description Code Type Severity Reaction Onset Reported/Identified Relationship to Patient Clinical Status Yes naproxen Drug Allergy N/A N/A 07/21/2013 Yes naproxen [id number] Drug Allergy Unknown N/A 05/01/2019 Medications There is no data. Problems Date [...] K80.20 CALCULUS OF GALLBLADDER W/O CHOLECYSTITI 02/15/2017 ZENA SHELL DOIC B Ot K21.9 GASTRO-ESOPHAGEAL REFLUX DISEASE WITHOUT 02/15/2017 DELGENEVA SHELTON NANETTE B Ot Z01.8 18 ENCOUNTER FOR OTHER PREPROCEDURAL EXAMIN 02/18/2017 ZENA SHELL DOIC B Ot K21.9 GASTRO-ESOPHAGEAL REFLUX DISEASE WITHOUT 02/18/2017 DELGENEVA DO NANETTE B Ot Z01.8 18 ENCOUNTER FOR OTHER PREPROCEDURAL EXAMIN 02/21/2017 ZENA SHELL DOIC B Ot K21.9 GASTRO-ESOPHAGEAL REFLUX DISEASE WITHOUT 02/21/2017 DELZENA BEAN DOIC B Ot Z01.8 18 ENCOUNTER FOR OTHER PREPROCEDURAL EXAMIN 02/22/2017 MONEGENEVA NANETTE SHELTON Ot F17.2 10 NICOTINE DEPENDENCE, CIGARETTES, UNCOMPL 02/22/2017 SUMAYA NANETTE SHELTON Ot K29.7 0 GASTRITIS, UNSPECIFIED, WITHOUT BLEEDING 02/22/2017 MONEGENEVA NANETTE SHELTON Ot K44.9 DIAPHRAGMATIC HERNIA WITHOUT OBSTRUCTION 05/03/2017 RADHA FAUSTIN, KELLEN J Ot R0 5 COUGH 06/28/2017 KIMBERLEY SORTO SALES CORRESPONDENCE CLERK-MARKET RISK SPECIALIST Ot J18.9 PNEUMONIA, UNSPECIFIED ORGANISM 07/01/2017 KIMBERLEY SORTO SALES CORRESPONDENCE CLERK-MARKET RISK SPECIALIST Ot J18.9 PNEUMONIA, UNSPECIFIED ORGANISM 08/26/2017 RADHA FAUSTIN, KELLEN J Ot R0 5 COUGH 08/26/2017 KIMBERLEY SORTO SALES CORRESPONDENCE CLERK-MARKET RISK SPECIALIST Ot J18.9 PNEUMONIA, UNSPECIFIED ORGANISM 11/05/2017 RADHA FAUSTIN, KELLEN J Ot R0 5 COUGH 11/05/2017 KIMBERLEY SORTO SALES CORRESPONDENCE CLERK-MARKET RISK SPECIALIST Ot J18.9 PNEUMONIA, UNSPECIFIED ORGANISM 07/30/2018 FRANSISCO SELF DOA K Ot E66.9 OBESITY, UNSPECIFIED 07/30/2018 CLAIR DO ALANA K Ot F17.210 NICOTINE DEPENDENCE, CIGARETTES, UNCOMPL 07/30/2018 CLAIR SHELTON ALANA K Ot G43.909 MIGRAINE, UNSP, NOT INTRACTABLE, WITHOUT 07/30/2018 CLAIR DO ALANA K Ot J06.9 ACUTE UPPER RESPIRATORY INFECTION, UNSPE 07/30/2018 FRANSISCO SELF DOA K Ot J43.9 EMPHYSEMA, UNSPECIFIED 07/30/2018 CLAIR DO ALANA K Ot K21.9 GASTRO-ESOPHAGEAL REFLUX DISEASE WITHOUT 07/30/2018 CLAIR DO ALANA K Ot R06.02 SHORTNESS OF BREATH 07/30/2018 FRANSISCO SELF DOA K Ot Z68.42 BODY MASS INDEX (BMI) 45.0-49.9, ADULT 07/30/2018 FRANSISCO SELF DOA Annelise Ot Z79.51 [facility] (CURRENT) USE OF INHALED STERO 07/30/2018 FRANSISCO SELF DOA Annelise Ot 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 07/30/2018 FRANSISCO SELF DOA Annelise Ot Z85.43 PERSONAL HISTORY OF MALIGNANT NEOPLASM O 07/30/[address] [facility] PERSONAL HISTORY OF OTHER INFECTIOUS AND 07/30/[address] [facility] Z87.01 PERSONAL HISTORY OF PNEUMONIA (RECURRENT 07/30/[address] [facility] Z87.448 PERSONAL HISTORY OF OTHER DISEASES OF UR 07/30/[address] [facility] Z88.8 ALLERGY STATUS TO OTH DRUG/MEDS/BIOL SUB 07/30/[address] [facility] Z90.710 ACQUIRED ABSENCE OF BOTH CERVIX AND UTER 07/30/[address] [facility] Z98.890 OTHER SPECIFIED POSTPROCEDURAL STATES 08/04/2018 CLAIR ALANA SHELTON Ot E66.9 OBESITY, UNSPECIFIED 08/04/[address] [facility] F17.210 NICOTINE DEPENDENCE, CIGARETTES, UNCOMPL 08/04/[address] [facility] G43.909 MIGRAINE, UNSP, NOT INTRACTABLE, WITHOUT 08/04/[address] [facility] J06.9 ACUTE UPPER RESPIRATORY INFECTION, UNSPE 08/04/[address] [facility] J43.9 EMPHYSEMA, UNSPECIFIED 08/04/[address] [facility] K21.9 GASTRO-ESOPHAGEAL REFLUX DISEASE WITHOUT 08/04/[address] [facility] R06.02 SHORTNESS OF BREATH 08/04/[address] [facility] Z68.42 BODY MASS INDEX (BMI) 45.0-49.9, ADULT 08/04/[address] [facility] Z[facility].51 [facility] (CURRENT) USE OF INHALED STERO 08/04/[address] [facility] Z79.52 [facility] (CURRENT) USE OF SYSTEMIC STER 08/04/[address] [facility] Z85.43 PERSONAL HISTORY OF MALIGNANT NEOPLASM O 08/04/[address] [facility] Z86.19 PERSONAL HISTORY OF OTHER INFECTIOUS AND 08/04/[address] [facility] Z87.01 PERSONAL HISTORY OF PNEUMONIA (RECURRENT 08/04/2018 CLAIR ALANA SHELTON Ot Z87.448 PERSONAL HISTORY OF OTHER DISEASES OF UR 08/04/[address] [facility] Z88.8 ALLERGY STATUS TO OTH DRUG/MEDS/BIOL SUB 08/04/2018 ALANA SELF DO Ot Z90.710 ACQUIRED ABSENCE OF BOTH CERVIX AND UTER 08/04/2018 ALANA SELF DO Ot Z98.890 OTHER SPECIFIED POSTPROCEDURAL STATES 08/15/2018 ZELALEM FRANKLIN APRN Ot E66 .9 OBESITY, UNSPECIFIED 08/15/2018 ZELALEM FRANKLIN APRN Ot F17.210 NICOTINE DEPENDENCE, CIGARETTES, UNCOMPL 08/15/2018 ZELALEM FRANKLIN APRN Ot G43.909 MIGRAINE, UNSP, NOT INTRACTABLE, WITHOUT 08/15/2018 ZELALEM FRANKLIN APRN Ot J44 .1 CHRONIC OBSTRUCTIVE PULMONARY DISEASE W 08/15/2018 ZELALEM FRANKLIN APRN Ot K21 .9 GASTRO-ESOPHAGEAL REFLUX DISEASE WITHOUT 08/15/2018 ZELALEM FRANKLIN APRN Ot R06.02 SHORTNESS OF BREATH 08/15/2018 ZELALEM FRANKLIN APRN Ot Z68.42 BODY MASS INDEX (BMI) 45.0-49.9, ADULT 08/15/2018 ZELALEM FRANKLIN APRN Ot 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 08/15/2018 ZELALEM FRANKLIN APRN Ot 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 08/15/2018 ZELALEM FRANKLIN APRN Ot Z85.43 PERSONAL HISTORY OF MALIGNANT NEOPLASM O 08/15/2018 ZELALEM FRANKLIN APRN Ot Z86.19 PERSONAL HISTORY OF OTHER INFECTIOUS AND 08/15/2018 ZELALEM FRANKLIN APRN Ot Z87.01 PERSONAL HISTORY OF PNEUMONIA (RECURRENT 08/15/2018 ZELALEM FRANKLIN APRN Ot Z87.448 PERSONAL HISTORY OF OTHER DISEASES OF UR 08/15/2018 ZELALEM FRANKLIN APRN Ot Z88 .8 ALLERGY STATUS TO OTH DRUG/MEDS/BIOL SUB 08/15/2018 ZELALEM FRANKILN APRN Ot Z90.710 ACQUIRED ABSENCE OF BOTH CERVIX AND UTER 08/15/2018 ZELALEM FRANKLIN APRN Ot Z98.890 OTHER SPECIFIED POSTPROCEDURAL STATES 04/22/2019 MICHELLE LEYVA MD Ot A41. 9 SEPSIS, UNSPECIFIED ORGANISM 04/22/2019 AUTUMN MD, MICHELLE M Ot E66. 9 OBESITY, UNSPECIFIED 04/22/2019 MICHELLE LEYVA MD Ot E78. 5 HYPERLIPIDEMIA, UNSPECIFIED 04/22/2019 MICHELLE LEYVA MD Ot F17.210 NICOTINE DEPENDENCE, CIGARETTES, UNCOMPL 04/22/2019 MICHELLE LEYVA MD Ot F41. 9 ANXIETY DISORDER, UNSPECIFIED 04/22/2019 MICHELLE LEYVA MD Ot F42. 9 OBSESSIVE-COMPULSIVE DISORDER, UNSPECIFI 04/22/2019 MICHELLE LEYVA MD Ot G43.909 MIGRAINE, UNSP, NOT INTRACTABLE, WITHOUT 04/22/2019 MICHELLE LEYVA MD Ot H54. 3 UNQUALIFIED VISUAL LOSS, BOTH EYES 04/22/2019 MICHELLE LEYVA MD Ot I10 ESSENTIAL (PRIMARY) HYPERTENSION 04/22/2019 MICHELLE LEYVA MD Ot J18. 9 PNEUMONIA, UNSPECIFIED ORGANISM 04/22/2019 MICHELLE LEYVA MD Ot J45.909 UNSPECIFIED ASTHMA, UNCOMPLICATED 04/22/2019 MICHELLE LEYVA MD Ot K21. 9 GASTRO-ESOPHAGEAL REFLUX DISEASE WITHOUT 04/22/2019 MICHELLE LEYVA MD Ot M19. 90 UNSPECIFIED OSTEOARTHRITIS, UNSPECIFIED 04/22/2019 MICHELLE LEYVA MD Ot N32. 81 OVERACTIVE BLADDER 04/22/2019 MICHELLE LEYVA MD Ot R09. 02 HYPOXEMIA 04/22/2019 MICHELLE LEYVA MD Ot R73. 9 HYPERGLYCEMIA, UNSPECIFIED 04/22/2019 MICHELLE LEYVA MD Ot T38.0X5A ADVERSE EFFECT OF GLUCOCORT/SYNTH ANALOG 04/22/2019 MICHELLE LEYVA MD Ot Z68. 42 BODY MASS INDEX (BMI) 45.0-49.9, ADULT 04/22/2019 MICHELLE LEYVA MD Ot Z79. 1 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) USE OF NON-STEROIDAL 04/22/2019 MICHELLE LEYVA MD Ot Z79. 52 [facility] (CURRENT) USE OF SYSTEMIC STER 04/22/2019 MICHELLE LEYVA MD Ot Z85. 43 PERSONAL HISTORY OF MALIGNANT NEOPLASM O 04/22/2019 MICHELLE LEYVA MD Ot Z87.440 PERSONAL HISTORY OF URINARY (TRACT) INFE 04/22/2019 MICHELLE LEYVA MD Ot Z90.710 ACQUIRED ABSENCE OF BOTH CERVIX AND UTER 04/24/2019 MICHELLE LEYVA MD Ot A41. 9 SEPSIS, UNSPECIFIED ORGANISM 04/24/2019 MICHELLE LEYVA MD Ot E66. 9 OBESITY, UNSPECIFIED 04/24/2019 MICHELLE LEYVA MD Ot E78. 5 HYPERLIPIDEMIA, UNSPECIFIED 04/24/2019 MICHELLE LEYVA MD Ot F17.210 NICOTINE DEPENDENCE, CIGARETTES, UNCOMPL 04/24/2019 MICHELLE LEYVA MD, Ot F41. 9 ANXIETY DISORDER, UNSPECIFIED 04/24/2019 MICHELLE LEYVA MD, Ot F42. 9 OBSESSIVE-COMPULSIVE DISORDER, UNSPECIFI 04/24/2019 MICHELLE LEYVA MD, Ot G43.909 MIGRAINE, UNSP, NOT INTRACTABLE, WITHOUT 04/24/2019 MICHELLE LEYVA MD Ot H54. 3 UNQUALIFIED VISUAL LOSS, BOTH EYES 04/24/2019 MICHELLE LEYVA MD Ot I10 ESSENTIAL (PRIMARY) HYPERTENSION 04/24/2019 MICHELLE LEYVA MD Ot J18. 9 PNEUMONIA, UNSPECIFIED ORGANISM 04/24/2019 MICHELLE LEYVA MD, Ot J45.909 UNSPECIFIED ASTHMA, UNCOMPLICATED 04/24/2019 MICHELLE LEYVA MD, Ot K21. 9 GASTRO-ESOPHAGEAL REFLUX DISEASE WITHOUT 04/24/2019 MICHELLE LEYVA MD Ot M19. 90 UNSPECIFIED OSTEOARTHRITIS, UNSPECIFIED 04/24/2019 MICHELLE LEYVA MD Ot N32. 81 OVERACTIVE BLADDER 04/24/2019 MICHELLE LEYVA MD Ot R09. 02 HYPOXEMIA 04/24/2019 MICHELLE LEYVA MD, Ot R73. 9 HYPERGLYCEMIA, UNSPECIFIED 04/24/2019 MICHELLE LEYVA MD Ot T38.0X5A ADVERSE EFFECT OF GLUCOCORT/SYNTH ANALOG 04/24/2019 MICHELLE LEYVA MD, Ot Z68. 42 BODY MASS INDEX (BMI) 45.0-49.9, ADULT 04/24/2019 MICHELLE LEYVA MD, Ot Z79. 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 43 PERSONAL HISTORY OF MALIGNANT NEOPLASM O 04/24/2019 MICHELLE LEYVA MD Ot Z87.440 PERSONAL HISTORY OF URINARY (TRACT) INFE 04/24/2019 MICHELLE LEYVA MD, Ot Z90.710 ACQUIRED ABSENCE OF BOTH CERVIX AND UTER 05/05/2019 ZELALEM FRANKLIN APRN Ot E66 .9 OBESITY, UNSPECIFIED 05/05/2019 ZELALEM FRANKLIN APRN Ot E78.00 PURE HYPERCHOLESTEROLEMIA, UNSPECIFIED 05/05/2019 ZELALEM FRANKLIN APRN Ot F17.210 NICOTINE DEPENDENCE, CIGARETTES, UNCOMPL 05/05/2019 ZELALEM FRANKLIN APRN Ot F41 .9 ANXIETY DISORDER, UNSPECIFIED 05/05/2019 ZELALEM FRANKLIN APRN Ot I10 ESSENTIAL (PRIMARY) HYPERTENSION 05/05/2019 ZELALEM FRANKLIN APRN Ot K21 .9 GASTRO-ESOPHAGEAL REFLUX DISEASE WITHOUT 05/05/2019 ZELALEM FRANKLIN APRN Ot M54 .9 DORSALGIA, UNSPECIFIED 05/05/2019 ZELALEM FRANKLIN APRN Ot R09 .1 PLEURISY 05/05/2019 ZELALEM FRANKLIN APRN Ot Z79.51 [facility] (CURRENT) USE OF INHALED STERO 05/05/2019 ZELALEM FRANKILN APRN Ot Z82.49 FAMILY HX OF ISCHEM HEART DIS AND OTH DI 05/05/2019 ZELALEM FRANKLIN APRN Ot Z88 .6 ALLERGY STATUS TO ANALGESIC AGENT STATUS Procedures There is no data. Results Test Result Range Complete urinalysis with reflex to cultu re - 07/30/18 18:57 Urine color determination YELLOW NRG Urine clarity determination CLEAR NR G Urine pH measurement by test strip 6 5-9 Specific gravity of urine by test strip 1.005 1.016-1.022 Urine protein assay by test strip, semi-quantitative NEGATIVE NEGATIVE Urine glucose detection by automated test strip NE GATIVE NEGATIVE Erythrocytes detection in urine sediment by light micr oscopy 1+ NEGATIVE Urine ketones detection by automated test strip NE GATIVE NEGATIVE Urine nitrite detection by test strip NEGATIVE NEGATIVE Urine total bilirubin detection by test strip NEGA TIVE NEGATIVE Urine urobilinogen measurement by automated test strip (mass/volume) NORMAL NORMAL Urine leukocyte esterase detection by dipstick NEG ATIVE NEGATIVE Automated urine sediment erythrocyte cou nt by microscopy (number/high power field) NONE NRG Automated urine sediment leukocyte count by microscopy (number/high power field) NONE NRG Bacteria detection in urine sediment by light microsco py NEGATIVE NRG Squamous epithelial cells detection in u rine sediment by light microscopy 2-5 NRG Crystals detection in urine sediment by light microsco py NONE NRG Casts detection in urine sediment by light microscopy NONE NRG Mucus detection in urine sediment by light microscopy NEGATIVE NRG Complete urinalysis with reflex to culture CULTURE PENDING NRG Bacterial urine culture - 07/30/18 18:57 Bacterial urine culture [id number] NRG COLONY COUNT PREDOMINANCE NRG FTX;REPORTABLE SUSCEPTIBILITY REPORTED 08-01-18 05. NR RML Sensitivity Panel - 07/30/18 18:57 Gentamicin susceptibility test by minimum inhibitory c oncentration <= NRG Trimethoprim/sulfamethoxazole susceptibi lity test by minimum inhibitoryconcentration <= NRG Levofloxacin susceptibility test by minimum inhibitory concentration <= NRG Ampicillin susceptibility test by minimum inhibitory c oncentration <= NRG Cefazolin susceptibility test by minimum inhibitory co ncentration <= NRG Ceftriaxone susceptibility test by minimum inhibitory concentration <= NRG Ciprofloxacin susceptibility test by minimum inhibitor y concentration <= NRG Meropenem susceptibility test by minimum inhibitory co ncentration <= NRG Nitrofurantoin susceptibility test by mi nimum inhibitory concentration <= NRG Amoxicillin and clavulanate potassium susc CHIP <= NRG Complete blood count (CBC) with automate d white blood cell (WBC) differential - 07/30/18 19:00 Blood leukocytes automated count (number/volume) 10.2 10*3/uL 4.3-11.0 Blood erythrocytes automated count (number/volume) 4.31 10*6/uL 4.35-5.85 Venous blood hemoglobin measurement (mass/volume) 14.9 g/dL 11.5-16.0 Blood hematocrit (volume fraction) 44 % 35-52 Automated erythrocyte mean corpuscular volume 101 [foz_us] 80-99 Automated erythrocyte mean corpuscular h emoglobin (mass per erythrocyte) 35 pg 25-34 Automated erythrocyte mean corpuscular h emoglobin concentration measurement (mass/volume) 34 g/dL 32-36 Automated erythrocyte distribution width ratio 16. 1 % 10.0- 14.5 Automated blood platelet count [...] 10*3 1.0-4.0 Blood monocytes automated count (number/volume) 0. 8 10*3 0.0-1.0 Automated eosinophil count 0.2 10*3/uL 0 .0-0.3 Automated blood basophil count (count/volume) 0.0 10*3/uL 0.0-0.1 Blood lactic acid measurement (moles/vol ume) - 07/30/18 19:00 Blood lactic acid measurement (moles/volume) 1.24 mmol/L 0.50-2.00 PT panel in platelet poor plasma by coag ulation assay - 07/30/18 19:00 Prothrombin time (PT) in platelet poor plasma by coagu lation assay 13.0 s 12.2-14.7 INR in platelet poor plasma or blood by coagulation as say 0.9 0.8-1.4 Activated partial thromboplastin time (a PTT) in platelet poor plasma bycoagulation assay - 07/30/18 19:00 Activated partial thromboplastin time (a PTT) in platelet poor plasma bycoagulation assay 31 s 24-35 Comprehensive metabolic panel - 07/30/18 19:00 Serum or plasma sodium measurement (moles/volume) 140 mmol/L 135-145 Serum or plasma potassium measurement (moles/volume) 3.8 mmol/L 3.6-5.0 Serum or plasma chloride measurement (moles/volume) 103 mmol/L 98-107 Carbon dioxide 24 mmol/L 21-32 Serum or plasma anion gap determination (moles/volume) 13 mmol/L 5-14 Serum or plasma urea nitrogen measurement (mass/volume ) 9 mg/dL 7-18 Serum or plasma creatinine measurement (mass/volume) 0.89 mg/dL 0.60-1.30 Serum or plasma urea nitrogen/creatinine mass ratio 10 NRG Serum or plasma creatinine measurement w ith calculation of estimated glomerular filtration rate > NRG Serum or plasma glucose measurement (mass/volume) 85 mg/dL 70-105 Serum or plasma calcium measurement (mass/volume) 9.7 mg/dL 8.5-10.1 Serum or plasma total bilirubin measurement (mass/volu me) 0.5 mg/dL 0.1-1.0 Serum or plasma alkaline phosphatase doreen surement (enzymatic activity/volume) 100 U/L 40-136 Serum or plasma aspartate aminotransfera se measurement (enzymatic activity/volume) 18 U/L 5-34 Serum or plasma alanine aminotransferase measurement (enzymatic activity/volume) 20 U/L 0-55 Serum or plasma protein measurement (mass/volume) 7.7 g/dL 6.4-8.2 Serum or plasma albumin measurement (mass/volume) 4.0 g/dL 3.2-4.5 CALCIUM CORRECTED 9.7 mg/dL 8.5-10.1 Bacterial blood culture - 07/30/18 19:00 Bacterial blood culture NG [facility] Influenza virus A and B antigen detectio n - 07/30/18 19:14 FLU RESULT NEGATIVE FOR INFLUENZA A AND B ANTIGENS BY IA [facility] Bacterial blood culture - 07/30/18 19:15 Bacterial blood culture NG [facility] Sputum Gram stain - 07/30/18 21:05 Sputum Gram stain [id number]. [facility] Bacterial sputum culture - 07/30/18 21:0 5 QUANTITY OF GROWTH . [facility] Bacterial sputum culture USUAL RESP [facility] Complete blood count (CBC) with automate d white blood cell (WBC) differential - 08/09/18 14:38 Blood leukocytes automated count (number/volume) 10.1 10*3/uL 4.3-11.0 Blood erythrocytes automated count (number/volume) 4.60 10*6/uL 4.35-5.85 Venous blood hemoglobin measurement (mass/volume) 15.8 g/dL 11.5-16.0 Blood hematocrit (volume fraction) 48 % 35-52 Automated erythrocyte mean corpuscular volume 104 [foz_us] 80-99 Automated erythrocyte mean corpuscular h emoglobin (mass per erythrocyte) 34 pg 25-34 Automated erythrocyte mean corpuscular h emoglobin concentration measurement (mass/volume) 33 g/dL 32-36 Automated erythrocyte distribution width ratio 17. 3 % 10.0- 14.5 Automated blood platelet count [...] 10*3 1.0-4.0 Blood monocytes automated count (number/volume) 0. 7 10*3 0.0-1.0 Automated eosinophil count 0.2 10*3/uL 0 .0-0.3 Automated blood basophil count (count/volume) 0.0 10*3/uL 0.0-0.1 Comprehensive metabolic panel - 08/09/18 14:38 Serum or plasma sodium measurement (moles/volume) 140 mmol/L 135-145 Serum or plasma potassium measurement (moles/volume) 3.7 mmol/L 3.6-5.0 Serum or plasma chloride measurement (moles/volume) 103 mmol/L 98-107 Carbon dioxide 29 mmol/L 21-32 Serum or plasma anion gap determination (moles/volume) 8 mmol/L 5-14 Serum or plasma urea nitrogen measurement (mass/volume ) 6 mg/dL 7-18 Serum or plasma creatinine measurement (mass/volume) 0.83 mg/dL 0.60-1.30 Serum or plasma urea nitrogen/creatinine mass ratio 7 NRG Serum or plasma creatinine measurement w ith calculation of estimated glomerular filtration rate > NRG Serum or plasma glucose measurement (mass/volume) 83 mg/dL 70-105 Serum or plasma calcium measurement (mass/volume) 9.9 mg/dL 8.5-10.1 Serum or plasma total bilirubin measurement (mass/volu me) 0.4 mg/dL 0.1-1.0 Serum or plasma alkaline phosphatase doreen surement (enzymatic activity/volume) 81 U/L 40-136 Serum or plasma aspartate aminotransfera se measurement (enzymatic activity/volume) 15 U/L 5-34 Serum or plasma alanine aminotransferase measurement (enzymatic activity/volume) 22 U/L 0-55 Serum or plasma protein measurement (mass/volume) 7.7 g/dL 6.4-8.2 Serum or plasma albumin measurement (mass/volume) 4.1 g/dL 3.2-4.5 CALCIUM CORRECTED 9.8 mg/dL 8.5-10.1 Complete blood count (CBC) with automate d white blood cell (WBC) differential - 04/22/19 15:40 Blood leukocytes automated count (number/volume) 10.3 10*3/uL 4.3-11.0 Blood erythrocytes automated count (number/volume) 4.12 10*6/uL 4.35-5.85 Venous blood hemoglobin measurement (mass/volume) 14.2 g/dL 11.5-16.0 Blood hematocrit (volume fraction) 43 % 35-52 Automated erythrocyte mean corpuscular volume 105 [foz_us] 80-99 Automated erythrocyte mean corpuscular h emoglobin (mass per erythrocyte) 35 pg 25-34 Automated erythrocyte mean corpuscular h emoglobin concentration measurement (mass/volume) 33 g/dL 32-36 Automated erythrocyte distribution width ratio 15. 6 % 10.0- 14.5 Automated blood platelet count (count/volume) 156 10*3/uL 130-400 Automated blood platelet mean volume measurement 10.4 [foz_us] 7.4-10.4 Automated blood neutrophils/100 leukocytes 63 % 42-75 Automated blood lymphocytes/100 leukocytes 29 % 12-44 Blood monocytes/100 leukocytes 6 % 0-12 Automated blood eosinophils/100 leukocytes 2 % 0-10 Automated blood basophils/100 leukocytes 0 % 0-10 Blood neutrophils automated count (number/volume) 6.5 10*3 1.8-7.8 Blood lymphocytes automated count (number/volume) 2.9 10*3 1.0-4.0 Blood monocytes automated count (number/volume) 0. 6 10*3 0.0-1.0 Automated eosinophil count 0.2 10*3/uL 0 .0-0.3 Automated blood basophil count (count/volume) 0.0 10*3/uL 0.0-0.1 PT panel in platelet poor plasma by coag ulation assay - 04/22/19 15:40 Prothrombin time (PT) in platelet poor plasma by coagu lation assay 13.6 s 12.2-14.7 INR in platelet poor plasma or blood by coagulation as say 1.0 0.8-1.4 Activated partial thromboplastin time (a PTT) in platelet poor plasma bycoagulation assay - 04/22/19 15:40 Activated partial thromboplastin time (a PTT) in platelet poor plasma bycoagulation assay 32 s 24-35 Comprehensive metabolic panel - 04/22/19 15:40 Serum or plasma sodium measurement (moles/volume) 142 mmol/L 135-145 Serum or plasma potassium measurement (moles/volume) 3.5 mmol/L 3.6-5.0 Serum or plasma chloride measurement (moles/volume) 102 mmol/L 98-107 Carbon dioxide 27 mmol/L 21-32 Serum or plasma anion gap determination (moles/volume) 13 mmol/L 5-14 Serum or plasma urea nitrogen measurement (mass/volume ) 10 mg/dL 7-18 Serum or plasma creatinine measurement (mass/volume) 0.81 mg/dL 0.60-1.30 Serum or plasma urea nitrogen/creatinine mass ratio 12 NRG Serum or plasma creatinine measurement w ith calculation of estimated glomerular filtration rate > NRG Serum or plasma glucose measurement (mass/volume) 88 mg/dL 70-105 Serum or plasma calcium measurement (mass/volume) 9.6 mg/dL 8.5-10.1 Serum or plasma total bilirubin measurement (mass/volu me) 0.5 mg/dL 0.1-1.0 Serum or plasma alkaline phosphatase doreen surement (enzymatic activity/volume) 105 U/L 40-136 Serum or plasma aspartate aminotransfera se measurement (enzymatic activity/volume) 16 U/L 5-34 Serum or plasma alanine aminotransferase measurement (enzymatic activity/volume) 18 U/L 0-55 Serum or plasma protein measurement (mass/volume) 7.4 g/dL 6.4-8.2 Serum or plasma albumin measurement (mass/volume) 3.9 g/dL 3.2-4.5 CALCIUM CORRECTED 9.7 mg/dL 8.5-10.1 Serum or plasma lithium measurement (mol es/volume) - 04/22/19 15:40 BNP PT 31.8 pg/mL <100.0 Bacterial blood culture - 04/22/19 15:40 Bacterial blood culture NG NRG Sputum Gram stain - 04/22/19 16:08 Sputum Gram stain Mixed Bacterial Laure NRG Bacterial sputum culture - 04/22/19 16:0 8 QUANTITY OF GROWTH . NRG Bacterial sputum culture USUAL RESP NRG Blood lactic acid measurement (moles/vol ume) - 04/22/19 16:18 Blood lactic acid measurement (moles/volume) 1.51 mmol/L 0.50-2.00 Bacterial blood culture - 04/22/19 16:18 Bacterial blood culture NG NRG Complete urinalysis with reflex to cultu re - 04/22/19 16:43 Urine color determination YELLOW NRG Urine clarity determination CLEAR NR G Urine pH measurement by test strip 5.5 5-9 Specific gravity of urine by test strip <= 1.016-1.022 Urine protein assay by test strip, semi-quantitative NEGATIVE NEGATIVE Urine glucose detection by automated test strip NE GATIVE NEGATIVE Erythrocytes detection in urine sediment by light micr oscopy NEGATIVE NEGATIVE Urine ketones detection by automated test strip NE GATIVE NEGATIVE Urine nitrite detection by test strip NEGATIVE NEGATIVE Urine total bilirubin detection by test strip NEGA TIVE NEGATIVE Urine urobilinogen measurement by automated test strip (mass/volume) 0.2 mg/dL < = 1.0 Urine leukocyte esterase detection by dipstick NEG ATIVE NEGATIVE Automated urine sediment erythrocyte cou nt by microscopy (number/high power field) NONE NRG Automated urine sediment leukocyte count by microscopy (number/high power field) RARE NRG Bacteria detection in urine sediment by light microsco py NEGATIVE NRG Squamous epithelial cells detection in u rine sediment by light microscopy 0-2 NRG Crystals detection in urine sediment by light microsco py NONE NRG Casts detection in urine sediment by light microscopy NONE NRG Mucus detection in urine sediment by light microscopy NEGATIVE NRG Complete urinalysis with reflex to culture CULTURE PENDING NRG Bacterial urine culture - 04/22/19 16:43 Bacterial urine culture NG NRG Urine Legionella pneumophila antigen ass ay - 04/22/19 16:43 Urine Legionella pneumophila antigen assay Negativ e NRG Streptococcus pneumoniae antigen detecti on - 04/22/19 16:43 Streptococcus pneumoniae antigen detection Negativ e NRG Complete blood count (CBC) with automate d white blood cell (WBC) differential - 04/23/19 05:21 Blood leukocytes automated count (number/volume) 7.9 10*3/uL 4.3-11.0 Blood erythrocytes automated count (number/volume) 4.02 10*6/uL 4.35-5.85 Venous blood hemoglobin measurement (mass/volume) 14.0 g/dL 11.5-16.0 Blood hematocrit (volume fraction) 42 % 35-52 Automated erythrocyte mean corpuscular volume 104 [foz_us] 80-99 Automated erythrocyte mean corpuscular h emoglobin (mass per erythrocyte) 35 pg 25-34 Automated erythrocyte mean corpuscular h emoglobin concentration measurement (mass/volume) 34 g/dL 32-36 Automated erythrocyte distribution width ratio 15. 6 % 10.0- 14.5 Automated blood platelet count (count/volume) 166 10*3/uL 130-400 Automated blood platelet mean volume measurement 9.9 [foz_us] 7.4-10.4 Automated blood neutrophils/100 leukocytes 86 % 42-75 Automated blood lymphocytes/100 leukocytes 13 % 12-44 Blood monocytes/100 leukocytes 1 % 0-12 Automated blood eosinophils/100 leukocytes 0 % 0-10 Automated blood basophils/100 leukocytes 0 % 0-10 Blood neutrophils automated count (number/volume) 6.8 10*3 1.8-7.8 Blood lymphocytes automated count (number/volume) 1.1 10*3 1.0-4.0 Blood monocytes automated count (number/volume) 0. 1 10*3 0.0-1.0 Automated eosinophil count 0.0 10*3/uL 0 .0-0.3 Automated blood basophil count (count/volume) 0.0 10*3/uL 0.0-0.1 Comprehensive metabolic panel - 04/23/19 05:21 Serum or plasma sodium measurement (moles/volume) 142 mmol/L 135-145 Serum or plasma potassium measurement (moles/volume) 4.2 mmol/L 3.6-5.0 Serum or plasma chloride measurement (moles/volume) 107 mmol/L 98-107 Carbon dioxide 25 mmol/L 21-32 Serum or plasma anion gap determination (moles/volume) 10 mmol/L 5-14 Serum or plasma urea nitrogen measurement (mass/volume ) 12 mg/dL 7-18 Serum or plasma creatinine measurement (mass/volume) 0.78 mg/dL 0.60-1.30 Serum or plasma urea nitrogen/creatinine mass ratio 15 NRG Serum or plasma creatinine measurement w ith calculation of estimated glomerular filtration rate > NRG Serum or plasma glucose measurement (mass/volume) 190 mg/dL 70-105 Serum or plasma calcium measurement (mass/volume) 9.5 mg/dL 8.5-10.1 Serum or plasma total bilirubin measurement (mass/volu me) 0.2 mg/dL 0.1-1.0 Serum or plasma alkaline phosphatase doreen surement (enzymatic activity/volume) 104 U/L 40-136 Serum or plasma aspartate aminotransfera se measurement (enzymatic activity/volume) 13 U/L 5-34 Serum or plasma alanine aminotransferase measurement (enzymatic activity/volume) 15 U/L 0-55 Serum or plasma protein measurement (mass/volume) 7.4 g/dL 6.4-8.2 Serum or plasma albumin measurement (mass/volume) 3.8 g/dL 3.2-4.5 CALCIUM CORRECTED 9.7 mg/dL 8.5-10.1 Capillary blood glucose measurement by g lucometer (mass/volume) - 04/23/19 11:07 Capillary blood glucose measurement by glucometer (mas s/volume) 211 mg/dL 70-110 Capillary blood glucose measurement by g lucometer (mass/volume) - 04/23/19 15:32 Capillary blood glucose measurement by glucometer (mas s/volume) 138 mg/dL 70-110 Capillary blood glucose measurement by g lucometer (mass/volume) - 04/23/19 20:11 Capillary blood glucose measurement by glucometer (mas s/volume) 166 mg/dL 70-110 Capillary blood glucose measurement by g lucometer (mass/volume) - 04/24/19 05:44 Capillary blood glucose measurement by glucometer (mas s/volume) 187 mg/dL 70-110 Streptococcus pyogenes antigen detection - 05/29/19 23:15 Streptococcus pyogenes antigen detection NEGATIVE NEGATIVE Influenza virus A and B antigen detectio n - 05/29/19 23:15 FLU RESULT NEGATIVE FOR INFLUENZA A AND B ANTIGENS BY IA NRG Complete blood count (CBC) with automate d white blood cell (WBC) differential - 05/29/19 23:31 Blood leukocytes automated count (number/volume) 10.8 10*3/uL 4.3-11.0 Blood erythrocytes automated count (number/volume) 4.40 10*6/uL 4.35-5.85 Venous blood hemoglobin measurement (mass/volume) 15.1 g/dL 11.5-16.0 Blood hematocrit (volume fraction) 46 % 35-52 Automated erythrocyte mean corpuscular volume 104 [foz_us] 80-99 Automated erythrocyte mean corpuscular h emoglobin (mass per erythrocyte) 34 pg 25-34 Automated erythrocyte mean corpuscular h emoglobin concentration measurement (mass/volume) 33 g/dL 32-36 Automated erythrocyte distribution width ratio 17. 1 % 10.0- 14.5 Automated blood platelet count (count/volume) 148 10*3/uL 130-400 Automated blood platelet mean volume measurement 10.4 [foz_us] 7.4-10.4 Automated blood neutrophils/100 leukocytes 65 % 42-75 Automated blood lymphocytes/100 leukocytes 25 % 12-44 Blood monocytes/100 leukocytes 9 % 0-12 Automated blood eosinophils/100 leukocytes 1 % 0-10 Automated blood basophils/100 leukocytes 0 % 0-10 Blood neutrophils automated count (number/volume) 7.1 10*3 1.8-7.8 Blood lymphocytes automated count (number/volume) 2.7 10*3 1.0-4.0 Blood monocytes automated count (number/volume) 0. 9 10*3 0.0-1.0 Automated eosinophil count 0.1 10*3/uL 0 .0-0.3 Automated blood basophil count (count/volume) 0.0 10*3/uL 0.0-0.1 Blood lactic acid measurement (moles/vol ume) - 05/29/19 23:31 Blood lactic acid measurement (moles/volume) 1.45 mmol/L 0.50-2.00 Serum heterophile antibody titer - 05/28 23:31 Serum heterophile antibody titer NEGATIVE NEGATIVE Comprehensive metabolic panel - 05/29/19 23:31 Serum or plasma sodium measurement (moles/volume) 142 mmol/L 135-145 Serum or plasma potassium measurement (moles/volume) 3.6 mmol/L 3.6-5.0 Serum or plasma chloride measurement (moles/volume) 102 mmol/L 98-107 Carbon dioxide 28 mmol/L 21-32 Serum or plasma anion gap determination (moles/volume) 12 mmol/L 5-14 Serum or plasma urea nitrogen measurement (mass/volume ) 11 mg/dL 7-18 Serum or plasma creatinine measurement (mass/volume) 1.01 mg/dL 0.60-1.30 Serum or plasma urea nitrogen/creatinine mass ratio 11 NRG Serum or plasma creatinine measurement w ith calculation of estimated glomerular filtration rate 58 NRG Serum or plasma glucose measurement (mass/volume) 133 mg/dL 70-105 Serum or plasma calcium measurement (mass/volume) 9.2 mg/dL 8.5-10.1 Serum or plasma total bilirubin measurement (mass/volu me) 0.4 mg/dL 0.1-1.0 Serum or plasma alkaline phosphatase doreen surement (enzymatic activity/volume) 100 U/L 40-136 Serum or plasma aspartate aminotransfera se measurement (enzymatic activity/volume) 17 U/L 5-34 Serum or plasma alanine aminotransferase measurement (enzymatic activity/volume) 17 U/L 0-55 Serum or plasma protein measurement (mass/volume) 7.4 g/dL 6.4-8.2 Serum or plasma albumin measurement (mass/volume) 3.8 g/dL 3.2-4.5 CALCIUM CORRECTED 9.4 mg/dL 8.5-10.1 Magnesium - 05/29/19 23:31 Magnesium 2.1 mg/dL 1.6-2.4 PT panel in platelet poor plasma by coag ulation assay - 05/29/19 23:31 Prothrombin time (PT) in platelet poor plasma by coagu lation assay 13.1 s 12.2-14.7 INR in platelet poor plasma or blood by coagulation as say 1.0 0.8-1.4 Activated partial thromboplastin time (a PTT) in platelet poor plasma bycoagulation assay - 05/29/19 23:31 Activated partial thromboplastin time (a PTT) in platelet poor plasma bycoagulation assay 30 s 24-35 Serum or plasma lithium measurement (mol es/volume) - 05/29/19 23:31 BNP PT 48.5 pg/mL <100.0 Serum or plasma troponin i.cardiac measu rement (mass/volume) - 05/29/19 23:31 Serum or plasma troponin i.cardiac measurement (mass/v olume) 0.030 ng/mL <0.028 Arterial blood gas measurement - 0 23:36 Blood pCO2 57 mm[Hg] 35-45 Blood pO2 114 mm[Hg] 79-93 Arterial blood bicarbonate measurement (moles/volume) 32 mmol/L 23-27 Arterial blood base excess by calculation 6.8 mmol /L -2.5-2.5 Arterial blood oxygen saturation measurement 99 % 94-100 * Inhaled oxygen flow rate 4L NRG Arterial blood pH measurement with patient temperature correction 7.37 7.37-7.43 Arterial blood carbon dioxide, total measurement (mole s/volume) 34.0 mmol/L 21.0-31.0 Body site LEFT RADIAL NRG Assessment of wrist artery patency prior to arterial p uncture YES-POS NRG Setting of ventilation mode NO NR G Measurement of body temperature 36.5 NRG Encounters ACCT No. Visit Date/Time Discharge Status Pt. Type Provider Facility Loc./Unit Complaint [id number] 07/21/2013 14:21:00 07/21/2013 23:59: 59 CLS Outpatient FATMATA FERNANDES DO [id number] 05/01/2019 18:53:00 20:10:00 DIS Outpatient ZELALEM FRANKLIN APRN [facility] ER MID BACK PN, L ABD PN, CANT SLEEP [id number] 04/22/2019 17:00:00 11:08:00 DIS Outpatient AUTUMN FAUSTIN, MICHELLE Restrepo [facility] 4TH BILAT PNEUMONIA, TOBACC OISM [id number] 08/09/2018 14:32:00 019 15:56:00 DIS Outpatient ZELALEM FRANKLIN APRN [facility] ER SOA [id number] 07/30/2018 18:40:00 019 21:07:00 DIS Emergency CLAIR DO, ALANA K [facility] ER SOA, FEVER, CONGESTION [id number] 02/28/2018 08:15:00 018 23:59:59 CLS KIMBERLEY Bai-MARKET RISK SPECIALIST [facility] RAD SCREENING [id number] 02/23/2018 13:15:00 23:59:59 CLS KIMBERLEY Bai-GIA [facility] RAD R92.2 INCONCLUS ELROY MAMMO [id number] 06/25/2017 08:17:00 018 23:59:59 CLS Outpatient KIMBERLEY SORTO SALES CORRESPONDENCE CLERK-MARKET RISK SPECIALIST [facility] RAD [id number] 04/30/2017 08:39:00 018 23:59:59 CLS Outpatient KELLEN GARCIA MD [facility] RAD R05 [id number] 04/12/2017 08:56:00 018 23:59:59 CLS Preadmit KIMBERLEY SORTO SALES CORRESPONDENCE CLERK-MARKET RISK SPECIALIST [facility] RAD SCREENING [id number] 02/22/2017 09:37:00 017 11:30:00 DIS Outpatient NANETTE SHELL DO [facility] ENDO REFLUX [id number] 02/15/2017 05:47:00 017 10:51:00 DIS Outpatient NANETTE SHELL DO [facility] PREOP EGD [id number] 03/27/2015 14:02:00 016 23:59:59 CLS Emergency GILBERT CHERRY MD [facility] ER ABD PAIN FATIGU E DARK STOOLS [id number] 05/29/2019 23:38:00 Document Registration
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
--- OUTSIDE RECORDS SUMMARY | 2019-05-30 00:56 | XMS REPORT | Encounter Summary ---
Author Author [facility] Organization [facility] Address Unknown Phone Unavailable Care Team Providers Care Business Affairs Manager Name Role Phone PCP Unavailable Encounter Details Care Team Description Date Type Department Nathalie Jensen MD [address] [facility] [address] [place] [address] [phone] 05/01/2008 Hist-Transcript [facility] ion Encounter Specialists [address] [facility] [address] [place], [place] [id number] Social History Date Tobacco Use Types Packs/Day Years Used Never Assessed Sex Assigned at Date Recorded Not on file Industry Job Start Date Occupation Not on file Not on file Not on file Travel End Travel History Travel Start No recent travel history available. documented as of this encounter Progress Notes * Nathalie Jensen MD - 05/01/2008 2:19 PM BIOLOGICAL SCIENCE AIDE Medicine and Allergies Stacyzuleima Mcnally Date of : 1970 Appointment date: 05/01/2008 Medicine and Allergies Medications you currently take and strength: Allergies-Please include the reaction it causes 4-# Are you Right or Left handed: _Left Ambidextrous Right Marital Status .--. Single _Married (Check one) Do You Smoke or chew tobacco: :-, Yes No _Chew #of Cigarettes/Cans per day Heig ht Do you Drink Alcohol Yes nc7 #of drinks per week Weight Has any family member had a serious illness (Please describe) Who Referred you: Reason for Visit: Is this an Injury? )( Yes No Date of injury S-[id number])-[id number] Work Related .),,Yes _No A uto Related k": Yes No Describe the Injury Occupation -,r, , , )4": i:, Are you off work _Yes _No If so for how long? Has any member of your family been seen in our office, if so who? ",.. InDxNotes: The text of this document was produced using optical character recogn ition (OCR). OCR has limitations in its accuracy. The original scanned document is attached for review. [employer] Thursday, May 01, 2008 1:53:03 PM BIOLOGICAL SCIENCE AIDE idlBatchDetail [id number] External Attachment: Type: Image Comment: External Document OGICAL SCIENCE AIDE documented in this encounter Plan of Treatment Not on filedocumented as of this encounter Visit Diagnoses Not on filedocumented in this encounter
[2019-05-30 00:58] LABS: BILIRUBIN,URINE NEGATIVE (NEGATIVE); CLARITY,URINE CLEAR; COLOR,URINE YELLOW; GLUCOSE, URINE (UA) NEGATIVE (NEGATIVE); KETONES,URINE NEGATIVE (NEGATIVE); LEUKOCYTE ESTERASE ,URINE NEGATIVE (NEGATIVE); NITRITE,URINE NEGATIVE (NEGATIVE); PROTEIN,URINE NEGATIVE (NEGATIVE)
[2019-05-30] MEDS ORDERED: ONDANSETRON 4 MG/2 ML (SDV) Z0FRAN IVP ONE (01:00)
[2019-05-30 01:11] LABS: AMPHETAMINE SCREEN, URINE NEGATIVE (NEGATIVE); BACTERIA,URINE NEGATIVE /HPF; BARBITURATE SCREEN URINE NEGATIVE (NEGATIVE); BENZODIAZEPINES SCREEN URINE NEGATIVE (NEGATIVE); CANNABINOID SCREEN, URINE NEGATIVE (NEGATIVE); COCAINE SCREEN URINE NEGATIVE (NEGATIVE); METHADONE STAT NEGATIVE (NEGATIVE); METHAMPHETAMINE SCREEN URINE S NEGATIVE (NEGATIVE); OPIATE SCREEN URINE NEGATIVE (NEGATIVE); OXYCODONE STAT NEGATIVE (NEGATIVE); PROPOXYPHENE STAT NEGATIVE (NEGATIVE); TRICYCLIC ANTIDEPRESSANTS SCRE NEGATIVE (NEGATIVE)
[2019-05-30] MEDS ORDERED: VANCOMYCIN 1 GM/NS 250 ML IVPB IV SCH ×2 (02:00)
[2019-05-30] MEDS ORDERED: PHARMACY TO DOSE IV SCH (02:00)
[2019-05-30] MEDS: NS IV 1000 ML 1,000 ML IV SCH ×3 (02:26→20:05)
[2019-05-30] MEDS ORDERED: FUROSEMIDE 40 MG/4 ML INJ (LASIX) IVP ONE (04:30)
[2019-05-30 05:45] LABS: BASOPHILS % (AUTO) 0 % (0-10); EOSINOPHILS % (AUTO) 0 % (0-10); HEMATOCRIT 48 % (35-52); HEMOGLOBIN 15.2 G/DL (11.5-16.0); LYMPHOCYTES # (AUTO) 1.2 X 10^3 (1.0-4.0); LYMPHOCYTES % (AUTO) 9 % (12-44); MEAN CORPUSCULAR HEMOGLOBIN 34 PG (25-34); MEAN CORPUSCULAR HGB CONC 32 G/DL (32-36); MEAN CORPUSCULAR VOLUME 107 FL (80-99); MEAN PLATELET VOLUME 10.4 FL (7.4-10.4); MONOCYTES # (AUTO) 0.3 X 10^3 (0.0-1.0); MONOCYTES % (AUTO) 2 % (0-12); NEUTROPHILS # (AUTO) 11.9 X 10^3 (1.8-7.8); NEUTROPHILS % (AUTO) 88 % (42-75); PLATELET COUNT 150 10^3/uL (130-400); RED CELL DISTRIBUTION WIDTH 17.4 % (10.0-14.5); WHITE BLOOD COUNT 13.5 10^3/uL (4.3-11.0)
[2019-05-30 06:20] LABS: CALCIUM 8.9 MG/DL (8.5-10.1); CREATININE SERUM 0.99 MG/DL (0.60-1.30); POTASSIUM 5.2 MMOL/L (3.6-5.0)
[2019-05-30 06:21] LABS: BILIRUBIN,TOTAL 0.2 MG/DL (0.1-1.0); MAGNESIUM 2.3 MG/DL (1.6-2.4); PHOSPHORUS 6.2 MG/DL (2.3-4.7); TOTAL PROTEIN 7.9 GM/DL (6.4-8.2)
--- NOTE | 2019-05-30 06:23 | Diagnostic Imaging Report ---
EXAMINATION: Chest 1 view HISTORY: Shortness of breath. COMPARISON: Chest radiograph on 05/01/2019. FINDINGS: The lung volumes are normal. Prominent interstitial markings are seen in the perihilar regions bilaterally. No focal consolidation is seen. No large pleural effusion or pneumothorax is seen. The cardiomediastinal silhouette is normal in size and contour. No acute osseous abnormality is seen. IMPRESSION: 1. Prominent interstitial markings in the perihilar regions bilaterally. This may represent bronchitis/bronchiolitis versus edema. No focal consolidations. Dictated by: Dictated on workstation # [id number]
--- NOTE | 2019-05-30 07:28 | NUR ---
VANCOMYCIN TROUGH SCR 0.99; ADJ BW 82 KG; CRCL ~ 88; VANC 2 GM GIVEN IN ED; VANC 15 MG/KG X 130 KG ~ 2 GM Q12H CHECK TROUGH LEVEL 05/30 1099 HOLD DOSE AND CONTACT PHARMACY IF LEVEL IS GREATER THAN 20
[2019-05-30] MEDS: ALBUTEROL/IPRATROP (COMBIVENT RESPIMAT) 4 GM INHALER IH SCH ×4 (08:31→21:26)
[2019-05-30] MEDS: ENOXAPARIN 60 MG/0.6 ML (LOVENOX) SYR SC SCH ×2 (10:00→20:05)
--- NOTE | 2019-05-30 10:13 | NUR ---
Received dietary consult for MST score. Note pt currently under observation for suspicion of COVID-19. Will monitor PO intake and reassess on 05/31. S. Yair Santoyo MS, RD, LD
--- NOTE | 2019-05-30 10:51 | History & Physical-Hospitalist ---
History of Present Illness HPI/Chief Complaint Pt is a 48yoCF known to me from recent admission who presented due to shortness of breath. She was admitted roughly 5 weeks ago for COPD exacerbation. She states she improved quickly and was discharged within two days but has never completely recovered since then. She denies any fevers. She was seen at the [facility] walk in clinic and started on Levaquin but this has not helped. She states she was checking her pulse ox at home and it was in the 80s pretty consistently and decided yesterday after no improvement to come in for evaluation. She was found to have oxygen saturations of 72% one arrival here. She was admitted for COPD exacerbation and COVID rule out. This morning she states she is feel much better and her breathing is improved. Her only concern is about getting a nicotine patch. She denies any travel history of COVID19 exposures. Source: patient Exam Limitations: no limitations Date Seen 05/30/19 Time Seen by a Provider: 10:46 Attending Physician Sonali Hardwick MD PCP No,Local Physician Referring Physician Date of Admission May 30, 2019 at 00:15 Home Medications & Allergies Home Medications Reviewed patient Home Medication Reconciliation performed by pharmacy medication reconciliations piano technician and/or nursing. Patients Allergies have been reviewed. Allergies Allergies Coded Allergies naproxen (Verified Allergy, Unknown, 05/01/19) can take ibuprofen Past Ydlcakv-Qtwuus-Escmoc Hx Past Med/Social Hx: Reviewed and Corrections made Patient Social History Alcohol Use: Denies Use Recreational Drug Use: No Smoking Status: Current Everyday Smoker Type Used: Cigarettes 2nd Hand Smoke Exposure: Yes Recent Foreign Travel: No Contact w/other who traveled: No Recent Hopitalizations: Yes (04/22/19-04/24/19 FOR PNEUMONIA) Recent Infectious Disease Expo: No Immunizations Up To Date Tetanus Booster (TDap): Unknown Pediatric: Yes Seasonal Allergies Seasonal Allergies: Yes Past Medical History Surgeries: Gallbladder, Hysterectomy, Oophorectomy, Orthopedic Respiratory: Asthma, Chronic Bronchitis, Pneumonia Cardiac: Chronic Edema/Swelling, High Cholesterol, Hypertension Neurological: Headaches /Migraines Reproductive: Yes Sexually Transmitted Disease: Yes (HX HERPES) HIV/AIDS: No Hysterectomy Genitourinary: Bladder Infection Gastrointestinal: Gastroesophageal Reflux, Gall Bladder Disease Musculoskeletal: Arthritis Loss of Vision: Bilateral Cancer: Ovarian Did You Recieve Any Treatments: Yes What Type of Treatment Did You: Surgical Intervention Psychosocial: Anxiety History of Blood Disorders: No Adverse Reaction to Blood Garcia: No (N/A) Family History Heart Disease, Cancer, Diabetes Review of Systems Constitutional: No chills, No fever EENTM: no symptoms reported Respiratory: see HPI, cough, short of breath Cardiovascular: No chest pain Gastrointestinal: no symptoms reported Musculoskeletal: no symptoms reported Skin: no symptoms reported Psychiatric/Neurological: No Symptoms Reported Physical Exam Physical Exam Vital Signs Vital Signs - First Documented 05/29/19 22:53 Temp 36.9 Pulse 106 Resp 30 B/P (MAP) 169/117 (134) Pulse Ox 94 O2 Delivery Nasal Cannula O2 Flow Rate 4.00 Capillary Refill : Less Than 3 Seconds Height, Weight, BMI Height: 5'6.00" Weight: 260lbs. 0.0oz. 117.044757ey; 52.76 BMI Method:Estimated General Appearance: No Apparent Distress, WD/WN, Chronically ill, Obese HEENT: Moist Mucous Membranes; No Scleral Icterus (L), No Scleral Icterus (R) Neck: Normal Inspection, Supple Respiratory: No Accessory Muscle Use, No Respiratory Distress, Wheezing Cardiovascular: Regular Rate, Rhythm, No Murmur Gastrointestinal: Normal Bowel Sounds, Non Tender, Soft Extremity: No Calf Tenderness, No Pedal Edema Neurologic/Psychiatric: Alert, Oriented x3, Normal Mood/Affect Skin: Normal Color, Warm/Dry Results Results/Procedures Labs Laboratory Tests 05/29/19 23:31 05/30/19 05:34 Patient resulted labs reviewed. Imaging: Reviewed Imaging Report Imaging Date of Exam:05/29/19 CHEST 1 VIEW, AP/PA ONLY EXAMINATION: Chest 1 view HISTORY: Shortness of breath. COMPARISON: Chest radiograph on 05/01/2019. FINDINGS: The lung volumes are normal. Prominent interstitial markings are seen in the perihilar regions bilaterally. No focal consolidation is seen. No large pleural effusion or pneumothorax is seen. The cardiomediastinal silhouette is normal in size and contour. No acute osseous abnormality is seen. IMPRESSION: 1. Prominent interstitial markings in the perihilar regions bilaterally. This may represent bronchitis/bronchiolitis versus edema. No focal consolidations. Assessment/Plan Admission Diagnosis Acute on Chronic Respiratory Failure COPD Exacerbation Admission Status: Inpatient Order (span 2 midnights) Reason for Inpatient Admission: will take more than two midnights to stabilize for discharge (failed outpatient management) Assessment and Plan Acute on Chronic Hypoxic Respiratory Failure COPD Exacerbation Keep sats >90 TeleICU consulted, appreciate assistance DC abx as no leukocytosis on original CBC, CXR shows no pna and procalcitonin negative COVID19 testing pending Discussed with Dr Yang with TeleHealth, will start on steroids given known COPD HTN Well controlled Trend Elevated Blood sugars Sliding scale insulin started Tobacco abuse Nicotine patch Diagnosis/Problems Diagnosis/Problems (1) Acute respiratory failure with hypoxia and hypercapnia Status: Acute (2) COPD exacerbation Status: Acute (3) Smoker Status: Acute Clinical Quality Measures DVT/VTE Risk/Contraindication: Risk Factor Score Per Nursin RFS Level Per Nursing on Admit: 4+=Very High MICHELLE LEYVA MD May 30, 2019 10:51
--- NOTE | 2019-05-30 10:58 | Diagnostic Imaging Report ---
PROCEDURE: US Venous Lower Ext Greg. TECHNIQUE: Multiple real-time grayscale images were obtained over the lower extremities in various projections, bilaterally. Additional duplex Doppler and color Doppler images were also obtained. INDICATION: Dyspnea and hypoxemia EXAMINATIONS: Both grayscale and color Doppler imaging of the deep veins of the lower extremities were performed with waveform analysis. FINDINGS: There is no intraluminal filling defect. Normal continuous flow is seen throughout the deep venous systems of both legs, and there is normal response to augmentation. The deep veins compress normally. IMPRESSION: No ultrasound evidence of deep venous thrombosis in either lower extremity. Dictated by: Dictated on workstation # [id number]
[2019-05-30] MEDS: NICOTINE 14 MG (NICODERM) PATCH TD SCH (11:44)
[2019-05-30] MEDS ORDERED: predniSONE 20 MG TAB PO NR (11:45)
[2019-05-30] MEDS ORDERED: VANCOMYCIN 2000 MG/NS 500 ML IVPB IV SCH ×2 (12:00)
[2019-05-30] MEDS ORDERED: CEFEPIME INJECTION 2,000 MG in WATER (STERILE) FOR INJECTION 20 ML IV SCH (12:00)
[2019-05-30] MEDS ORDERED: NICO-588 TD (15:35)
[2019-05-30] MEDS ORDERED: ATOR80TA76 PO (15:35)
[2019-05-30] MEDS ORDERED: CHOL10007 PO (15:35)
[2019-05-30] MEDS ORDERED: LISI40TA PO (15:35)
[2019-05-30] MEDS ORDERED: MONT10TA26 PO (15:35)
[2019-05-30] MEDS ORDERED: LEVO750T9 PO (15:40)
--- NOTE | 2019-05-30 15:41 | NUR ---
ENTERED THE MED REC USING THE [place] MEDICATION OUTPATIENT RECORD AND THE EXT MED HISTORY. I AM UNABLE TO SPEAK WITH THE PT AT THIS TIME, I TRIED TO CALL THE ROOM (THERE IS NO PHONE IN THERE) AND THEN CALLED THE NUMBER WE HAVE ON FILE THINKING IT WAS HER CELL. NOT SURE IF THE NUMBER LISTED IS HER CELL PHONE (OR HOME) OR IF SHE JUST DIDNT ANSWER. I SPOKE WITH HER NURSE AND ASKED THE NEXT TIME HE GOES IN HER ROOM TO SEE IF SHE HAS A MED LIST. I WILL KEEP TRYING TO REACH THE PT TO COMPLETE THE MED REC Addendum: 05/31/19 at 1154 by INOCENCIA BOYD [facility] I WAS ABLE TO SPEAK WITH THE PT TO GET CLARIFICATION AND TO COMPLETE THE MED REC THERE WERE MEDS ON THE [facility] LIST THAT SHE SAYS SHE IS EITHER NOT TAKING OR HASNT STARTED YET-MONTELUKAST AND PULMICORT(NOT TAKING ANYMORE) AND THE NICOTINE PRODUCTS (NOT STARTED THEM YET) PT SAYS SHE IS USING ALBUTEROL NEBULIZER SOLUTION- HOWEVER THE VA HASNT SENT THAT OUT IN OVER A YEAR- FOR THIS REASON I AM NOT INCLUDING IT IN THE MED REC THE FOLLOWING ARE FILL DATES: 11-06-2018 ALBUTEROL HFA #3/PRN 03-14-2019 LISINOPRIL 40MG #45/90DS 04-06-2019 CETIRIZINE 10MG #90/90DS 04-11-2019 OMEPRAZOLE 40MG #180/90DS 04-28-2019 ATORVASTATIN 80MG #45/90DS 05-02-2019 FLONASE #3/90DS 05-06-2019 TROSPIUM 20MG #60/30DS 05-13-2019 VITAMIN D #100/100DS OTC MEDS: TYLENOL VIT B12
[2019-05-30] MEDS: inSUlin ASPART (NovoLOG) 1 UNIT/0.01 ML (CHARGE PER UNIT) SC SCH ×2 (17:23→20:04)
[2019-05-31] VITALS (11 sets, daily range): BP systolic 113–182; BP diastolic 71–104
[2019-05-31] MEDS ORDERED: VANCOMYCIN 1,750 MG/NS 500 ML IVPB IV SCH ×2
[2019-05-31] MEDS ORDERED: AZITHROMYCIN INJECTION 500 MG in NS (IVPB) 250 ML IV SCH ×2
--- NOTE | 2019-05-31 00:38 | NUR ---
PT HAVING COUGHING FIT WITH STRUGGLES TO CLEAR SECRETIONS AND CATCHING HER BREATH. PT SAYS IT FEELS LIKE A "TICKLE IN HER THROAT" AND SAYS SHE USES NEBULIZED ALBUTEROL AT HOME WHEN THIS HAPPENS. E-ICU CONTACTED AND TOLD ABOUT HER REQUEST. AWAITING ORDERS AT THIS TIME
[2019-05-31] MEDS: RT-ALBUTEROL/IPRATROPIUM 3 ML (DUONEB) VIAL INH SCH ×6 (02:01→21:45)
[2019-05-31 03:57] LABS: BASOPHILS % (AUTO) 0 % (0-10); EOSINOPHILS % (AUTO) 0 % (0-10); HEMATOCRIT 46 % (35-52); HEMOGLOBIN 14.2 G/DL (11.5-16.0); LYMPHOCYTES # (AUTO) 2.7 X 10^3 (1.0-4.0); LYMPHOCYTES % (AUTO) 23 % (12-44); MEAN CORPUSCULAR HEMOGLOBIN 34 PG (25-34); MEAN CORPUSCULAR HGB CONC 31 G/DL (32-36); MEAN CORPUSCULAR VOLUME 109 FL (80-99); MONOCYTES # (AUTO) 1.1 X 10^3 (0.0-1.0); MONOCYTES % (AUTO) 9 % (0-12); NEUTROPHILS # (AUTO) 7.7 X 10^3 (1.8-7.8); NEUTROPHILS % (AUTO) 67 % (42-75); PLATELET COUNT 136 10^3/uL (130-400); RED CELL DISTRIBUTION WIDTH 17.8 % (10.0-14.5); WHITE BLOOD COUNT 11.5 10^3/uL (4.3-11.0)
[2019-05-31 04:34] LABS: BUN/CREATININE RATIO 14; CALCIUM 9.5 MG/DL (8.5-10.1); CARBON DIOXIDE 34 MMOL/L (21-32); CHLORIDE 100 MMOL/L (98-107); CREATININE SERUM 0.88 MG/DL (0.60-1.30); GFR ESTIMATED > 60; GLUCOSE 109 MG/DL (70-105); MAGNESIUM 2.3 MG/DL (1.6-2.4); PHOSPHORUS 4.6 MG/DL (2.3-4.7); POTASSIUM 4.6 MMOL/L (3.6-5.0); SODIUM 144 MMOL/L (135-145)
[2019-05-31] MEDS: inSUlin ASPART (NovoLOG) 1 UNIT/0.01 ML (CHARGE PER UNIT) SC SCH ×4 (04:38→20:18)
[2019-05-31] MEDS: NS IV 1000 ML 1,000 ML IV SCH (06:17)
[2019-05-31] MEDS: predniSONE 20 MG TAB PO SCH (07:38)
[2019-05-31] MEDS: ENOXAPARIN 60 MG/0.6 ML (LOVENOX) SYR SC SCH ×2 (07:40→20:32)
[2019-05-31] MEDS: NICOTINE 14 MG (NICODERM) PATCH TD SCH (07:40)
--- NOTE | 2019-05-31 07:40 | Diagnostic Imaging Report ---
INDICATION: Respiratory distress. Comparison with 05/29/2019. FINDINGS: The heart is not enlarged. Lungs are well-aerated. No acute infiltrates are demonstrated. No pneumothorax or pleural effusion. IMPRESSION: 1. Lungs are well-aerated and clear without acute infiltrates on today's exam. Dictated by: Dictated on workstation # [id number]
[2019-05-31] MEDS: NICOTINE PATCH REMOVAL TP SCH (07:42)
[2019-05-31] MEDS: ALBUTEROL/IPRATROP (COMBIVENT RESPIMAT) 4 GM INHALER IH SCH (08:50)
--- NOTE | 2019-05-31 10:46 | NUR ---
pt report given to Keren TARANGO. Pt to be transported via bed to room 411 at this time
--- NOTE | 2019-05-31 10:55 | NUR ---
RECEIVED FROM ICU PER BED, ALERT, O2 ON PER NC AT 6 LITERS, C/O HEADACHE, SALINE LOCK WITHOUT REDNESS OR SWELLING, SCD'S APPLIED, CALL LIGHT WITHIN REACH
[2019-05-31] MEDS ORDERED: TROUGH ORDER-PHARMACY XX NR (11:00)
[2019-05-31] MEDS: ACETAMINOPHEN 500 MG TAB (TYLENOL) PO PRN (11:26)
[2019-05-31] MEDS ORDERED: CYAN250010 PO (11:47)
[2019-05-31] MEDS ORDERED: RT-ALBUINH IH (11:47)
[2019-05-31] MEDS ORDERED: PHEN1SUP92 RC (11:56)
--- NOTE | 2019-05-31 12:05 | Progress Note - Hospitalist ---
Subjective HPI/CC On Admission Time Seen by Provider: 11:15 Pt is a 48yoCF known to me from recent admission who presented due to shortness of breath. She was admitted roughly 5 weeks ago for COPD exacerbation. She states she improved quickly and was discharged within two days but has never completely recovered since then. She denies any fevers. She was seen at the [facility] walk in clinic and started on Levaquin but this has not helped. She states she was checking her pulse ox at home and it was in the 80s pretty consistently and decided yesterday after no improvement to come in for evaluation. She was found to have oxygen saturations of 72% one arrival here. She was admitted for COPD exacerbation and COVID rule out. This morning she states she is feel much better and her breathing is improved. Her only concern is about getting a nicotine patch. She denies any travel history of COVID19 exposures. Subjective/Events-last exam Pt reports doing well. No complaints. Breathing improved. Focused Exam Lactate Level 05/29/19 23:31: Lactic Acid Level 1.45 Objective Exam Vital Signs Vital Signs Date Time Temp Pulse Resp B/P (MAP) Pulse Ox O2 Delivery O2 Flow Rate FiO2 05/31/19 09:00 101 24 169/100 (123) 93 High Flow N/C 5.00 05/31/19 07:00 37.1 Capillary Refill : Less Than 3 Seconds General Appearance: No Apparent Distress, WD/WN, Obese Respiratory: No Respiratory Distress, Wheezing Cardiovascular: Regular Rate, Rhythm, No Murmur Gastrointestinal: Normal Bowel Sounds, Soft Neurologic/Psychiatric: Alert, Oriented x3, Normal Mood/Affect Results/Procedures Lab Laboratory Tests 05/31/19 03:10 Patient resulted labs reviewed. Imaging: Reviewed Imaging Report Assessment/Plan Assessment and Plan Assess & Plan/Chief Complaint Acute on Chronic Hypoxic Respiratory Failure COPD Exacerbation Keep sats >90 COVID19 testing negative Continue prednisone Will check home oxygen study HTN Elevated today, resume home meds Trend Elevated Blood sugars Sliding scale insulin started Tobacco abuse Nicotine patch Diagnosis/Problems Diagnosis/Problems (1) Acute respiratory failure with hypoxia and hypercapnia Status: Acute (2) COPD exacerbation Status: Acute (3) Smoker Status: Acute Clinical Quality Measures DVT/VTE Risk/Contraindication: Risk Factor Score Per Nursin RFS Level Per Nursing on Admit: 4+=Very High MICHELLE LEYVA MD May 31, 2019 12:05
[2019-05-31] MEDS ORDERED: NON-FORMULARY MEDICATION 1 EA EA (Fluticasone Propionate (Flonase Allergy Relief) 2 SPRAY) NS PRN (12:15)
[2019-05-31] MEDS ORDERED: HEMORRHOIDAL SUPP (PREPARATION H) RC PRN (12:15)
[2019-05-31] MEDS ORDERED: FLUTICASONE NASAL SPRAY (FLONASE) 16 GM BTL NS PRN (12:30)
--- NOTE | 2019-05-31 15:08 | NUR ---
CM/SS visited with the patient for discharge planning. The patient stated that she wanted to talk with this SS about social security disability. She reports that she was previously receiving disability for Major Depression while in [place]. After that she decided to continue to work. 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 The patient would like to file for social security disability again in [place]. CM/SS went to [email or web address] and found a PDF with step by step instructions for the patient along with a phone number to call and ask about the process. The patient verbalized understanding. CM/SS will [facility] [place] The patient was not previously on oxygen. CM/SS was contacted by Leida Michael, the patients sister per the patients request to keep updated. The patient states that she does not have any other questions or needs at this current time. Will continue to follow.
[2019-05-31] MEDS: TROSPIUM 20 MG (SANCTURA) TAB PO SCH (20:31)
[2019-05-31] MEDS: PANTOPRAZOLE 40 MG (PROTONIX) TAB PO SCH (20:32)
[2019-05-31] MEDS: ACETAMINOPHEN 500 MG TAB (TYLENOL) PO SCH (20:35)
[2019-05-31] MEDS ORDERED: NON-FORMULARY MEDICATION 1 EA EA (Omeprazole 40 MG) PO SCH (21:00)
[2019-06-01 00:27] VITALS: BP 147/87
[2019-06-01] MEDS: ACETAMINOPHEN 500 MG TAB (TYLENOL) PO PRN (01:20)
[2019-06-01] MEDS: RT-ALBUTEROL/IPRATROPIUM 3 ML (DUONEB) VIAL INH SCH ×3 (02:46→11:22)
[2019-06-01 04:00] VITALS: BP 148/93
[2019-06-01 05:04] LABS: BASOPHILS % (AUTO) 0 % (0-10); EOSINOPHILS % (AUTO) 0 % (0-10); HEMATOCRIT 44 % (35-52); HEMOGLOBIN 13.7 G/DL (11.5-16.0); LYMPHOCYTES # (AUTO) 3.3 X 10^3 (1.0-4.0); LYMPHOCYTES % (AUTO) 37 % (12-44); MEAN CORPUSCULAR HEMOGLOBIN 34 PG (25-34); MEAN CORPUSCULAR HGB CONC 32 G/DL (32-36); MEAN CORPUSCULAR VOLUME 107 FL (80-99); MEAN PLATELET VOLUME 10.2 FL (7.4-10.4); MONOCYTES # (AUTO) 0.8 X 10^3 (0.0-1.0); MONOCYTES % (AUTO) 9 % (0-12); NEUTROPHILS # (AUTO) 4.9 X 10^3 (1.8-7.8); NEUTROPHILS % (AUTO) 54 % (42-75); PLATELET COUNT 142 10^3/uL (130-400); RED CELL DISTRIBUTION WIDTH 17.2 % (10.0-14.5)
[2019-06-01 05:23] LABS: BUN/CREATININE RATIO 17; CALCIUM 9.2 MG/DL (8.5-10.1); CARBON DIOXIDE 35 MMOL/L (21-32); CHLORIDE 98 MMOL/L (98-107); CREATININE SERUM 0.75 MG/DL (0.60-1.30); GFR ESTIMATED > 60; GLUCOSE 87 MG/DL (70-105); MAGNESIUM 2.2 MG/DL (1.6-2.4); PHOSPHORUS 3.2 MG/DL (2.3-4.7); POTASSIUM 4.1 MMOL/L (3.6-5.0); SODIUM 141 MMOL/L (135-145)
[2019-06-01] MEDS: inSUlin ASPART (NovoLOG) 1 UNIT/0.01 ML (CHARGE PER UNIT) SC SCH ×4 (06:05→21:00)
[2019-06-01] MEDS: predniSONE 20 MG TAB PO SCH (06:08)
[2019-06-01 08:00] VITALS: BP 155/98
[2019-06-01] MEDS: ENOXAPARIN 60 MG/0.6 ML (LOVENOX) SYR SC SCH ×2 (08:54→20:37)
[2019-06-01] MEDS: ACETAMINOPHEN 500 MG TAB (TYLENOL) PO SCH ×2 (08:55→16:50)
[2019-06-01] MEDS: LORATADINE (CLARITIN) 10 MG TAB PO SCH (08:55)
[2019-06-01] MEDS: lisINopril 20 MG (PRINIVIL) TABLET PO SCH (08:55)
[2019-06-01] MEDS: PANTOPRAZOLE 40 MG (PROTONIX) TAB PO SCH ×2 (08:55→20:37)
[2019-06-01] MEDS: TROSPIUM 20 MG (SANCTURA) TAB PO SCH ×2 (08:55→20:37)
[2019-06-01] MEDS: NICOTINE 14 MG (NICODERM) PATCH TD SCH (08:56)
[2019-06-01] MEDS: NICOTINE PATCH REMOVAL TP SCH (08:57)
[2019-06-01] MEDS ORDERED: NON-FORMULARY MEDICATION 1 EA EA (Cetirizine HCl 10 MG) PO SCH (09:00)
[2019-06-01] MEDS ORDERED: lisINopril 40 MG (PRINIVIL) TABLET PO SCH (09:00)
--- NOTE | 2019-06-01 10:11 | NUR ---
RD ASSESSMENT PMHx: hypercholesterolemia; HTN; GERD; CA(ovarian) PT INTERACTION: Pt was awake and pleasant during consult for MST score. Pt states current appetite is "poor off and on" and has been this way for the last two weeks. Note avg PO intake >75% x2d, per chart review. Pt states following a regular diet at home and has no issues with chewing/swallowing food. Pt states recent episodes of nausea, but no vomiting. Pt states some recent issues with constipation and pt states she does not know when her last BM was. Note no BM has been recorded and pt not currently on bowel regimen per chart review. Pt states recent changes of "going up and down", but was unsure of amounts/timeframe. Note recent 15# wt gain x1mon, per chart review. Upon visual exam, pt appears to be very well nourished with no visible signs of muscle/fat wasting and a BMI of 54.1. Given wt hx, and current PO intake, pt does not meet criteria for malnutrition per ASPEN guidelines. ABNORMAL NUTRITION-RELATED LAB VALUES All Labs WNL Est. kcal needs: [id number] kcal | 25-30 kcal/kg IBW, based on IBW of 50 kg (110#) Est. Pro needs: 50-60 g Pro | 1.0-1.2 g Pro/kg IBW, based on IBW of 50 kg (110#) PES STATEMENT: Given current PO intake, no nutrition diagnosis at this time (NO-1.1) INTERVENTION: Continue with current diet order of 2000mg Na diet. Pt may benefit from more aggressive bowel regimen if constipation persists. Will continue to follow and reassess as pt needs, intake, and status change. MONITOR/EVALUATE: PO Intake; Plan of Care; Hydration Status; Weight Status; Lab Values Marbella Santoyo, MS, RD, LD
--- NOTE | 2019-06-01 10:46 | Progress Note - Hospitalist ---
Subjective HPI/CC On Admission Date Seen by Provider: Jun 01, 2019 Time Seen by Provider: 10:43 Pt is a 48yoCF known to me from recent admission who presented due to shortness of breath. She was admitted roughly 5 weeks ago for COPD exacerbation. She states she improved quickly and was discharged within two days but has never completely recovered since then. She denies any fevers. She was seen at the [facility] walk in clinic and started on Levaquin but this has not helped. She states she was checking her pulse ox at home and it was in the 80s pretty consistently and decided yesterday after no improvement to come in for evaluation. She was found to have oxygen saturations of 72% one arrival here. She was admitted for COPD exacerbation and COVID rule out. This morning she states she is feel much better and her breathing is improved. Her only concern is about getting a nicotine patch. She denies any travel history of COVID19 exposures. Subjective/Events-last exam Pt reports feeling better. Breathing much better. No complaints. Asking to get up and walk more if ok. Focused Exam Lactate Level 05/29/19 23:31: Lactic Acid Level 1.45 Objective Exam Vital Signs Vital Signs Date Time Temp Pulse Resp B/P (MAP) Pulse Ox O2 Delivery O2 Flow Rate FiO2 06/01/19 09:27 High Flow N/C 4.00 06/01/19 08:19 91 06/01/19 08:00 36.8 85 18 155/98 (117) Capillary Refill : Less Than 3 SecondsLess Than 3 Seconds General Appearance: No Apparent Distress, Obese Respiratory: No Accessory Muscle Use, No Respiratory Distress, Wheezing Cardiovascular: Regular Rate, Rhythm, No Murmur Gastrointestinal: Normal Bowel Sounds, Soft Neurologic/Psychiatric: Alert, Oriented x3 Results/Procedures Lab Laboratory Tests 06/01/19 04:45 Patient resulted labs reviewed. Imaging: Reviewed Imaging Report Assessment/Plan Assessment and Plan Assess & Plan/Chief Complaint Acute on Chronic Hypoxic Respiratory Failure COPD Exacerbation Keep sats >90 COVID19 testing negative Continue prednisone Needs home oxygen study HTN Continue home meds Trend Elevated Blood sugars Sliding scale insulin started Tobacco abuse Nicotine patch Diagnosis/Problems Diagnosis/Problems (1) Acute respiratory failure with hypoxia and hypercapnia Status: Acute (2) COPD exacerbation Status: Acute (3) Smoker Status: Acute Clinical Quality Measures DVT/VTE Risk/Contraindication: Risk Factor Score Per Nursin RFS Level Per Nursing on Admit: 4+=Very High MICHELLE LEYVA MD Jun 01, 2019 10:46
--- NOTE | 2019-06-01 11:26 | NUR ---
RT NOTIFIED OF HOME O2 ORDER
[2019-06-01 12:00] VITALS: BP 101/72
[2019-06-01 15:41] VITALS: BP 154/85
--- NOTE | 2019-06-01 16:49 | NUR ---
PT WAS IN IN ROOM AT REST ON 4L BY N/C WITH O2 SAT OF 91 %. TURNED OFF O2 AND PUT ON ROOM AIR FOR 10 MIN, SITTING AT REST PT SATS DROPPED TO 85%, HR 92, RR 20. STARTED 6 MIN WALK AT 1L AND TITRATED UP TO 6L TO KEEP SATS ABOVE 90%. PT WALKED 300 FT IN 6 MIN, HR RANGED FROM 86-111 BPM, REQUIRED 6L TO KEEP OVER 90% W/EXERCISE. ROOM AIR, 85% ON 4L BY N/C 91% W/EXERCISE 6L BY N/C 93%
[2019-06-01] MEDS: ALBUTEROL/IPRATROP (COMBIVENT RESPIMAT) 4 GM INHALER IH SCH ×2 (17:05→19:05)
[2019-06-01 20:01] VITALS: BP 167/86
[2019-06-02 00:30] VITALS: BP 148/90
[2019-06-02] MEDS ORDERED: guaiFENesin/DM (ROBITUSSIN DM) 10 ML UDC ONE (02:54)
[2019-06-02] MEDS ORDERED: guaiFENesin/DM (ROBITUSSIN DM) 10 ML UDC PO PRN (03:00)
[2019-06-02 04:09] VITALS: BP 144/67
[2019-06-02] MEDS: predniSONE 20 MG TAB PO SCH (05:24)
[2019-06-02] MEDS: inSUlin ASPART (NovoLOG) 1 UNIT/0.01 ML (CHARGE PER UNIT) SC SCH ×2 (05:24→10:55)
[2019-06-02 05:30] LABS: BASOPHILS % (AUTO) 0 % (0-10); EOSINOPHILS # (AUTO) 0.1 10^3/uL (0.0-0.3); EOSINOPHILS % (AUTO) 1 % (0-10); HEMATOCRIT 44 % (35-52); HEMOGLOBIN 14.1 G/DL (11.5-16.0); LYMPHOCYTES # (AUTO) 2.8 X 10^3 (1.0-4.0); LYMPHOCYTES % (AUTO) 37 % (12-44); MEAN CORPUSCULAR HEMOGLOBIN 33 PG (25-34); MEAN CORPUSCULAR HGB CONC 32 G/DL (32-36); MEAN CORPUSCULAR VOLUME 104 FL (80-99); MONOCYTES # (AUTO) 0.8 X 10^3 (0.0-1.0); MONOCYTES % (AUTO) 10 % (0-12); NEUTROPHILS # (AUTO) 3.8 X 10^3 (1.8-7.8); NEUTROPHILS % (AUTO) 51 % (42-75); PLATELET COUNT 133 10^3/uL (130-400); RED CELL DISTRIBUTION WIDTH 16.5 % (10.0-14.5); WHITE BLOOD COUNT 7.5 10^3/uL (4.3-11.0)
[2019-06-02 05:51] LABS: BUN/CREATININE RATIO 15; CALCIUM 9.5 MG/DL (8.5-10.1); CARBON DIOXIDE 34 MMOL/L (21-32); CHLORIDE 97 MMOL/L (98-107); CREATININE SERUM 0.89 MG/DL (0.60-1.30); GFR ESTIMATED > 60; GLUCOSE 94 MG/DL (70-105); MAGNESIUM 2.2 MG/DL (1.6-2.4); PHOSPHORUS 3.9 MG/DL (2.3-4.7); POTASSIUM 3.9 MMOL/L (3.6-5.0); SODIUM 141 MMOL/L (135-145)
[2019-06-02] MEDS: ALBUTEROL/IPRATROP (COMBIVENT RESPIMAT) 4 GM INHALER IH SCH ×2 (06:01→11:33)
[2019-06-02 08:00] VITALS: BP 172/95
[2019-06-02] MEDS: TROSPIUM 20 MG (SANCTURA) TAB PO SCH (08:01)
[2019-06-02] MEDS: NICOTINE PATCH REMOVAL TP SCH (08:01)
[2019-06-02] MEDS: NICOTINE 14 MG (NICODERM) PATCH TD SCH (08:01)
[2019-06-02] MEDS: lisINopril 20 MG (PRINIVIL) TABLET PO SCH (08:01)
[2019-06-02] MEDS: ENOXAPARIN 60 MG/0.6 ML (LOVENOX) SYR SC SCH (08:01)
[2019-06-02] MEDS: PANTOPRAZOLE 40 MG (PROTONIX) TAB PO SCH (08:01)
[2019-06-02] MEDS: LORATADINE (CLARITIN) 10 MG TAB PO SCH (08:02)
[2019-06-02] MEDS: ACETAMINOPHEN 500 MG TAB (TYLENOL) PO SCH (08:02)
[2019-06-02] MEDS ORDERED: PRED10TA22 PO (10:03)
--- NOTE | 2019-06-02 10:05 | Discharge Inst-Simple/Standard ---
Discharge Inst-Standard Discharge Medications New, Converted or Re-Newed RX: Transmitted to Pharmacy Patient Instructions/Follow Up Plan of Care/Instructions/FU: Please continue to take your medications as written. Please keep your telehealth visit with your pulmnologist, Dr Arora on Sunday 06/04. Activity as Tolerated: Yes Discharge Diet: No Restrictions Return to The Hospital For: Fever, chills, shortness of breath, cough, low oxygen saturations, if you feel you are getting worse. Planned Outpatient Orders/Ref. Pneu Vac Indicated: Yes MICHELLE LEYVA MD Jun 02, 2019 10:05
--- NOTE | 2019-06-02 10:13 | Discharge Summary ---
Diagnosis/Chief Complaint Date of Admission May 30, 2019 at 00:15 Date of Discharge Discharge Date: Jun 02, 2019 Admission Diagnosis Acute on Chronic Respiratory Failure COPD Exacerbation Primary Care No,Local Physician Discharge Diagnosis (1) Acute respiratory failure with hypoxia and hypercapnia Status: Acute (2) COPD exacerbation Status: Acute (3) Smoker Status: Acute Discharge Summary Discharge Physical Exam Allergies: Coded Allergies: naproxen (Verified Allergy, Unknown, 05/01/19) can take ibuprofen Vitals & I&Os Vital Signs Date Time Temp Pulse Resp B/P (MAP) Pulse Ox O2 Delivery O2 Flow Rate FiO2 06/02/19 09:00 93 Nasal Cannula 4.00 06/02/19 08:00 36.6 95 18 172/95 (120) General Appearance: No Apparent Distress, Chronically ill, Obese Respiratory: Lungs Clear, No Accessory Muscle Use, No Respiratory Distress Cardiovascular: Regular Rate, Rhythm, No Murmur Gastrointestinal: Normal Bowel Sounds, Non Tender, Soft Neurologic/Psychiatric: Alert, Oriented x3 Hospital Course Pt was admitted due to COPD exacerbation. She was originally admitted as a COVID rule out which was negative. She was treated with steroids and responded well. She was titrated down on her oxygen from 8lpm to 4lpm. She underwent oxygen testing for home and was found to need 4lpm continuously. She was discharged home in stable condition to complete oral steroids at home. I advised her on strict precautions to take at home with social distancing given her baseline respiratory status. She is to keep her TeleHealth visit with her Assembly Lead Person on 06/04. Labs (last 24 hrs) Laboratory Tests 06/01/19 10:41: Glucometer 131H 06/01/19 16:03: Glucometer 134H 06/01/19 17:01: Glucometer 111H 06/01/19 20:31: Glucometer 115H 06/02/19 05:10: White Blood Count 7.5, Red Blood Count 4.22L, Hemoglobin 14.1, Hematocrit 44, Mean Corpuscular Volume 104H, Mean Corpuscular Hemoglobin 33, Mean Corpuscular Hemoglobin Concent 32, Red Cell Distribution Width 16.5H, Platelet Count 133, Mean Platelet Volume 10.0, Neutrophils (%) (Auto) 51, Lymphocytes (%) (Auto) 37, Monocytes (%) (Auto) 10, Eosinophils (%) (Auto) 1, Basophils (%) (Auto) 0, Neutrophils # (Auto) 3.8, Lymphocytes # (Auto) 2.8, Monocytes # (Auto) 0.8, Eosinophils # (Auto) 0.1, Basophils # (Auto) 0.0, Sodium Level 141, Potassium Level 3.9, Chloride Level 97L, Carbon Dioxide Level 34H, Anion Gap 10, Blood Urea Nitrogen 13, Creatinine 0.89, Estimat Glomerular Filtration Rate > 60, BUN/Creatinine Ratio 15, Glucose Level 94, Calcium Level 9.5, Phosphorus Level 3.9, Magnesium Level 2.2 06/02/19 05:16: Glucometer 100 Microbiology 05/30/19 MRSA Screen - Final, Complete MRSA not isolated 05/29/19 Blood Culture - Preliminary, Resulted No growth 05/29/19 Urine Culture - Final, Complete 3 or more isolates Patient resulted labs reviewed. Pending Labs Laboratory Tests 06/02/19 05:10: White Blood Count 7.5, Red Blood Count 4.22, Hemoglobin 14.1, Hematocrit 44, Mean Corpuscular Volume 104, Mean Corpuscular Hemoglobin 33, Mean Corpuscular Hemoglobin Concent 32, Red Cell Distribution Width 16.5, Platelet Count 133, Mean Platelet Volume 10.0, Neutrophils (%) (Auto) 51, Lymphocytes (%) (Auto) 37, Monocytes (%) (Auto) 10, Eosinophils (%) (Auto) 1, Basophils (%) (Auto) 0, Neutrophils # (Auto) 3.8, Lymphocytes # (Auto) 2.8, Monocytes # (Auto) 0.8, Eosinophils # (Auto) 0.1, Basophils # (Auto) 0.0, Sodium Level 141, Potassium Level 3.9, Chloride Level 97, Carbon Dioxide Level 34, Anion Gap 10, Blood Urea Nitrogen 13, Creatinine 0.89, Estimat Glomerular Filtration Rate > 60, BUN/Creatinine Ratio 15, Glucose Level 94, Calcium Level 9.5, Phosphorus Level 3.9, Magnesium Level 2.2 06/02/19 05:16: Glucometer 100 Imaging: Reviewed Imaging Report Discussion & Recommendations Discharge Planning: >30 minutes discharge planning Discharge Home Medications: Active Scripts Active Prednisone 10 Mg Tab.ds.pk 10 Mg PO DAILY Take 6 tabs(60mg)daily,decrease by 1 tab(10mg)every other day. Reported Preparation H Suppository (Phenylephrine HCl/[place] Butter) 1 Each Supp.rect 1 Each RC TID PRN Proair Hfa (Albuterol Sulfate) 1 Puff Puff 2 Puff IH Q4H PRN 1 PUFF = 90 MCG Vitamin B12 (Cyanocobalamin (Vitamin B-12)) 2,500 Mcg Tablet 2,500 Mcg PO DAILY Levaquin (Levofloxacin) 750 Mg Tablet 750 Mg PO DAILY FILLED 05-25-2019 #7/7DAY SUPPLY Vitamin D3 (Cholecalciferol (Vitamin D3)) 25 Mcg Capsule 25 Mcg PO DAILY Atorvastatin Calcium 80 Mg Tablet 40 Mg PO HS TAKES OF AN 80MG TO EQUAL 40MG Lisinopril 40 Mg Tablet 20 Mg PO DAILY TAKES OF A 40MG TO EQUAL 20MG Trospium Chloride 20 Mg Tablet 20 Mg PO BID Flonase Allergy Relief (Fluticasone Propionate) 9.9 Ml [place].susp 2 [place] NS DAILY PRN Cetirizine HCl 10 Mg Tablet 10 Mg PO DAILY Omeprazole 40 Mg Capsule.dr 40 Mg PO BID Tylenol Extra Strength (Acetaminophen) 500 Mg Tablet 1,000 Mg PO BID Instructions to patient/family Please see electronic discharge instructions given to patient. Clinical Quality Measures DVT/VTE Risk/Contraindication: Risk Factor Score Per Nursin RFS Level Per Nursing on Admit: 4+=Very High MICHELLE LEYVA MD Jun 02, 2019 10:13
[2019-06-02 12:00] VITALS: BP 186/84
--- NOTE | 2019-06-02 14:13 | NUR ---
JUSTIN/AMANDA follow up visit. ENRIQUETA spoke with Hill from the [facility] who gave me her phone number as [phone] and fax of [phone]. JUSTIN/AMANDA faxed over the medical records and oxygen study. She verbalized confirmation of receiving documents. They will bring oxygen to the hospital and then set up home oxygen once home. The patient requested medical records. JUSTIN/AMANDA spoke with medical records and had the patient fill out a medical records release. JUSTIN/AMANDA faxed to [phone]. Waiting for a call back from medical records. The patient needs records for social security disability. The patient called the number that amanda gave her yesterday and she has another phone meeting with [facility] on Wednesday. No other questions or concerns.
--- NOTE | 2019-06-02 15:21 | NUR ---
[facility] here [facility]
== END 2019-06-02 15:54 | disposition home or self-care (01) | DRG 189 ==
LOC: EDUNIT# 22:38 → ER 22:39 → ICU 05-30 00:15 → 4TH 05-31 11:00
PROVIDERS: ADMIT Internal Medicine; ATTEND Internal Medicine
DX: J96.21 Acute and chronic respiratory failure with hypoxia (principal); J44.1 Chronic obstructive pulmonary disease with (acute) exacerbation; Z68.43 Body mass index [BMI] 50.0-59.9, adult; J96.22 Acute and chronic respiratory failure with hypercapnia; F17.210 Nicotine dependence, cigarettes, uncomplicated; R07.89 Other chest pain; I10 Essential (primary) hypertension; E78.00 Pure hypercholesterolemia, unspecified; J30.2 Other seasonal allergic rhinitis; R60.9 Edema, unspecified; R01.1 Cardiac murmur, unspecified; Z03.818 Encounter for observation for suspected exposure to other biological agents ruled out; G43.909 Migraine, unspecified, not intractable, without status migrainosus; H54.3 Unqualified visual loss, both eyes; K21.9 Gastro-esophageal reflux disease without esophagitis; M19.91 Primary osteoarthritis, unspecified site; R73.9 Hyperglycemia, unspecified; E66.9 Obesity, unspecified; F41.9 Anxiety disorder, unspecified; I87.8 Other specified disorders of veins; Z87.01 Personal history of pneumonia (recurrent); Z85.43 Personal history of malignant neoplasm of ovary; Z87.440 Personal history of urinary (tract) infections; Z90.79 Acquired absence of other genital organ(s); Z90.710 Acquired absence of both cervix and uterus; Z90.722 Acquired absence of ovaries, bilateral; Z79.1 Long term (current) use of non-steroidal anti-inflammatories (NSAID)
CPT/HCPCS: 36415; 36600; 71045; 80048; 80053; 80306; 81000; 82805; 82962; 83605; 83735; 83880; 84100; 84145; 84484; 85025; 85610; 85730; 86308; 87040; 87070; 87081; 87088; 87205; 87430; 87635; 87804; 93005; 93041; 93970; 94640; 94760; 94761

== ENCOUNTER → 2021-01-17 | Outpatient (CLI) | payer OTHER ==
[~2021-01-17] MED LIST changes: +ATOR80TA76 PO; +CHOL10007 PO; +CYAN250010 PO; +LEVO750T9 PO; -LISI-552 PO; +LISI20TA26 PO; +LISI40TA9 PO; +MONT10TA32 PO; +NICO-685 TD; -OMEP40CA27 PO; +OMEP40CA6 PO; +PHEN1SUP92 RC; -PROM118S4 PO; +PROM118S5 PO; +RT-ALBUINH IH
--- NOTE | 2021-01-17 15:52 | Diagnostic Imaging Report ---
PROCEDURE: CT chest without contrast. TECHNIQUE: Multiple contiguous axial images were obtained through the chest without the use of intravenous contrast. Auto Exposure Controls were utilized during the CT exam to meet ALARA standards for radiation dose reduction. INDICATION: Pleuritic chest pain. COMPARISON: Radiographs dated 05/01/[address] dated 03/27/2015. FINDINGS: No significant adenopathy within the chest. Mild scattered vascular calcifications, including within the coronary arteries. No aneurysmal dilatation of the thoracic aorta. The heart is within normal limits in size. No pericardial effusion. No pleural effusion. No pneumothorax. The trachea is patent. Minimal background emphysematous changes. Benign 2 mm left lower lobe pulmonary nodule, stable. Stable 2 mm right middle lobe pulmonary nodule, benign. The lungs are otherwise clear. Cholecystectomy. The minimally visualized upper abdomen is otherwise unremarkable. Mild scattered osseous degenerative changes without acute osseous abnormality. IMPRESSION: No acute abnormality. Minimal background emphysematous changes. Tiny benign bilateral pulmonary nodules. Dictated by: Dictated on workstation # [id number]
== END ==
LOC: RAD 14:45
PROVIDERS: ATTEND Family Medicine
DX: J43.9 Emphysema, unspecified (principal); R91.8 Other nonspecific abnormal finding of lung field
CPT/HCPCS: 71250

== ENCOUNTER 2022-02-08 09:01 | Emergency (ER) | payer OTHER ==
[~2022-02-08] VITALS: Ht 167 cm; Wt 133.0 kg
[~2022-02-08 09:01] MED LIST changes: +ALBU8.5H6 IH; +MONT-40 PO; -MONT10TA32 PO; -RT-ALBUINH IH
[2022-02-08] MEDS ORDERED: KETO10TA PO (09:29)
[2022-02-08] MEDS ORDERED: KETOROLAC 30 MG/ML VIAL IM PRN (09:30)
--- NOTE | 2022-02-08 09:31 | ED Integumentary General ---
General Chief Complaint: Skin/Wound Problems Stated Complaint: OPEN SORES ON ABD/BOTTOM/LEGS/VAGINA Nursing Triage Note: PT STATES HAVING SORES EVERYWHERE FOR 6 WEEKS, HAS SEEN A DR AND WAS GIVEN TRAMADOL BUT IS OUT. SORES IN THE GROIN AREA Source: patient Exam Limitations: no limitations History of Present Illness Date Seen by Provider: Feb 08, 2022 Time Seen by Provider: 09:10 Initial Comments 51-year-old female presents the emergency department today for 6 to 8 weeks of sores to the infraclavicular region, buttock region and vaginal region. She has seen multiple physicians and been on and off of antibiotics several times. She is also seeing wound care and given Santyl cream and the wounds continue to have difficulty healing. She states she has been checked for diabetes several times and her A1c is 5.4. 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 She denies any fevers or chills but does have intermittent nausea. She is currently on antibiotics. She does have an appointment scheduled with Dr. Verma for further evaluation and treatment recommendations. She presents today because she is having significant amount of pain. Allergies and Home Medications Allergies Coded Allergies: naproxen (Verified Allergy, Unknown, 05/01/19) can take ibuprofen Patient Home Medication List Home Medication List Reviewed: Yes Acetaminophen (Tylenol Extra Strength) 500 Mg Tablet, 1,000 MG PO BID, (Reported) Entered as Reported by: RICHIE MONTALVO on 03/27/15 1424 Albuterol Sulfate (Ventolin Hfa) 1 Puff Puff, 2 PUFF IH Q4H PRN for SHORTNESS OF BREATH, (Reported) Entered as Reported by: INOCENCIA BOYD on 05/31/19 1147 Atorvastatin Calcium (Atorvastatin Calcium) 80 Mg Tablet, 40 MG PO HS, (Reported) Entered as Reported by: INOCENCIA BOYD on 05/30/19 1535 Cetirizine HCl (Cetirizine HCl) 10 Mg Tablet, 10 MG PO DAILY, (Reported) Entered as Reported by: LYDIA RICHARDSON on 02/15/17 1043 Cholecalciferol (Vitamin D3) (Vitamin D3) 25 Mcg Capsule, 25 MCG PO DAILY, (Reported) Entered as Reported by: INOCENCIA BOYD on 05/30/19 1535 Cyanocobalamin (Vitamin B-12) (Vitamin B12) 2,500 Mcg Tablet, 2,500 MCG PO DAILY, (Reported) Entered as Reported by: INOCENCIA BOYD on 05/31/19 1147 Fluticasone Propionate (Flonase Allergy Relief) 9.9 Ml [place].susp, 2 SPRAY NS DAILY PRN for CONGESTION, (Reported) Entered as Reported by: LYDIA RICHARDSON on 02/15/17 1043 Lisinopril (Lisinopril) 40 Mg Tablet, 20 MG PO DAILY, (Reported) Entered as Reported by: INOCENCIA BOYD on 05/30/19 1535 Omeprazole (Omeprazole) 40 Mg Capsule.dr, 40 MG PO BID, (Reported) Entered as Reported by: LYDIA RICHARDSON on 02/15/17 1043 Phenylephrine HCl/[place] Butter (Preparation H Suppository) 1 Each Supp.rect, 1 EACH RC TID PRN for HEMMORRHOID DISCOMFORT, (Reported) Entered as Reported by: INOCENCIA BOYD on 05/31/19 1156 Prednisone (Prednisone) 10 Mg Tab.ds.pk, 10 MG PO DAILY Prescribed by: MICHELLE LEYVA on 06/02/19 1003 Trospium Chloride (Trospium Chloride) 20 Mg Tablet, 20 MG PO BID, (Reported) Entered as Reported by: BUTCH WEBSTER on 04/22/19 2307 Review of Systems Review of Systems Constitutional: no symptoms reported EENTM: no symptoms reported Respiratory: no symptoms reported Cardiovascular: no symptoms reported Gastrointestinal: no symptoms reported Genitourinary: no symptoms reported Musculoskeletal: no symptoms reported Skin: other (Painful skin ulcers) Psychiatric/Neurological: No Symptoms Reported Endocrine: No Symptoms Reported Hematologic/Lymphatic: No Symptoms Reported Past Qpmhdzm-Pqqgum-Ofdrxj Hx Patient Social History Tobacco Use?: Yes Use of E-Cig and/or Vaping dev: No Substance use?: No Alcohol Use?: No Immunizations Up To Date Tetanus Booster (TDap): Unknown PED Vaccines UTD: Yes Seasonal Allergies Seasonal Allergies: Yes Past Medical History Surgeries: Yes (HYST/BSO 2000;INEZ; BILAT CARPAL TUNNEL) Gallbladder, Hysterectomy, Oophorectomy, Orthopedic Respiratory: Yes (SMOKES > 1 PPD) Pneumonia, Chronic Bronchitis, COPD Cardiac: Yes (MURMUR SINCE ) Chronic Edema/Swelling, High Cholesterol, Hypertension Neurological: Yes Headaches /Migraines 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 Sexually Transmitted Disease: Yes (HX HERPES) HIV/AIDS: No Genitourinary: Yes Bladder Infection Gastrointestinal: Yes (S/P INEZ) Gastroesophageal Reflux, Gall Bladder Disease Musculoskeletal: Yes (S/P BILAT CARPAL TUNNEL REPAIR) Arthritis Endocrine: Yes (OBESITY) HEENT: No Loss of Vision: Bilateral Cancer: Yes Ovarian Did You Recieve Any Treatments: Yes What Type of Treatment Did You: Surgical Intervention Psychosocial: Yes Anxiety Integumentary: No Blood Disorders: No Adverse Reaction/Blood Tranf: No (N/A) Family Medical History Reviewed Nursing Family Hx Heart Disease, Cancer, Diabetes Physical Exam Vital Signs Vital Signs - First Documented 02/08/22 09:12 Temp 36.3 Pulse 130 Resp 24 B/P (MAP) 100/80 (87) Pulse Ox 95 O2 Delivery Room Air Capillary Refill : Less Than 3 Seconds General Appearance: WD/WN, no apparent distress HEENT: normal ENT inspection, pharynx normal Neck: non-tender, supple, normal inspection Cardiovascular: regular rate, rhythm, no edema, no gallop, no JVD, no murmur Respiratory: chest non-tender, lungs clear, normal breath sounds, no respiratory distress, no accessory muscle use Gastrointestinal: normal bowel sounds, non tender, no organomegaly Back: normal inspection Extremities: normal range of motion, other (Changes consistent with chronic venous stasis bilateral lower extremities) Skin: other (Patient has multiple superficial ulcers to her gluteal cleft. The largest of these is about 3 cm in diameter. There is some superficial purulent material with foul odor. Several infra pannicular areas of shallow ulceration with the largest of these being about 3 to 4 cm in diameter. Pannus is indurated diffusely. No focal cellulitis.) Progress/Results/Core Measures Results/Orders My Orders Orders - KATT GREGORIO DO Ketorolac Injection (Toradol Injection) (02/08/22 09:30) Vital Signs/I&O 02/08/22 09:12 Temp 36.3 Pulse 130 Resp 24 B/P (MAP) 100/80 (87) Pulse Ox 95 O2 Delivery Room Air Blood Pressure Mean: 87 Departure Communication (Admissions) Patient is hemodynamically stable. She has chronic looking ulcers in the infraclavicular region, gluteal region and vaginal region. Several still she sees wound care and is now seeking possible surgical options. She presents today for pain. There is no evidence of infection or sepsis. I had a long conversation with her about the need for weight loss. I did discuss possible surgical options for weight loss as well to discuss with Dr. Verma and see if she is a candidate. She does not have diabetes. Mostly discussed lifestyle modifications and ways to keep areas clean and dry to help encourage wound healing. She is mostly concerned about her pain. Reluctant to give narcotic pain medication as this is likely to be a longer standing problem that takes at least 6 months to fully resolve and want to avoid causing medication addiction. We will go ahead and give her Toradol for now. She is discharged home in stable condition with supportive care and close follow-up. She does have an appoint with Dr. Verma scheduled in the near future Impression Primary Impression: Skin ulcer Qualified Codes: L98.491 - Non-pressure chronic ulcer of skin of other sites limited to breakdown of skin Disposition: HOME, SELF-CARE Condition: Stable Departure-Patient Inst. Referrals: NO,LOCAL PHYSICIAN (PCP/Family) Primary Care Physician Patient Instructions: Wound Care (DC), Pressure Sores Add. Discharge Instructions: Continue to see wound care and keep your appointment with Dr. Verma as previously scheduled. Given that you have been on some antibiotics I am not going to start them currently. May need to see your primary doctor if you develop fevers. Take the pain medication as prescribed as needed. Take this with food so it does not give you ulcers in your stomach. Return to the emergency department for any severe concerns All discharge instructions reviewed with patient and/or family. Voiced understanding. Scripts Ketorolac Tromethamine (Ketorolac Tromethamine) 10 Mg Tablet 10 MG PO TID for Pain for 3 Days, #9 TAB Prov: KATT GREGORIO DO 02/08/22 KATT GREGORIO DO Feb 08, 2022 09:31
[2022-02-08] MEDS ORDERED: ONDA8TAB13 SL (09:35)
[2022-02-08 09:52] VITALS: BP 127/113
== END 2022-02-08 09:52 | disposition home or self-care (01) ==
LOC: EDUNIT# 09:01 → ER 09:05
DX: L98.499 Non-pressure chronic ulcer of skin of other sites with unspecified severity (principal); E66.9 Obesity, unspecified; F17.210 Nicotine dependence, cigarettes, uncomplicated; Z28.310 Unvaccinated for COVID-19
CPT/HCPCS: 99284

== ENCOUNTER → 2022-04-15 | Outpatient (CLI) | payer OTHER ==
[~2022-04-15] MED LIST changes: +KETO10TA PO; +ONDA8TAB13 SL
== END ==
LOC: WOUNDCARE 13:27
PROVIDERS: ATTEND Family Medicine
DX: L98.492 Non-pressure chronic ulcer of skin of other sites with fat layer exposed (principal); L24.A0 Irritant contact dermatitis due to friction or contact with body fluids, unspecified; E66.01 Morbid (severe) obesity due to excess calories; B37.2 Candidiasis of skin and nail; F17.218 Nicotine dependence, cigarettes, with other nicotine-induced disorders; L24.A2 Irritant contact dermatitis due to fecal, urinary or dual incontinence
CPT/HCPCS: 11042

== ENCOUNTER → 2022-04-21 | Outpatient (CLI) | payer OTHER | LOC: WOUNDCARE 12:33 | PROVIDERS: ATTEND Family Medicine | DX: L98.492 Non-pressure chronic ulcer of skin of other sites with fat layer exposed (principal); L24.A0 Irritant contact dermatitis due to friction or contact with body fluids, unspecified; E66.01 Morbid (severe) obesity due to excess calories; L24.A2 Irritant contact dermatitis due to fecal, urinary or dual incontinence; I96 Gangrene, not elsewhere classified; F17.218 Nicotine dependence, cigarettes, with other nicotine-induced disorders; Z68.42 Body mass index [BMI] 45.0-49.9, adult | CPT/HCPCS: 99212 ==

== ENCOUNTER 2022-04-24 15:38 | Emergency (ER) | payer OTHER ==
[~2022-04-24] VITALS: Ht 157.5 cm; Wt 114.7 kg
--- NOTE | 2022-04-24 16:25 | ED GU-Female ---
General Chief Complaint: Catheter/Drain/Tube Problems Stated Complaint: CATHETER CHANGE Nursing Triage Note: PT TO RM 3 BY WC WITH COMPLAINT OF HER CURRY CATHETER NEEDING TO BE CHANGED. [facility] AND [facility] 3 DAYS LATE TO HAVE HER CATHETER REPLACED. NO OTHER COMPLAINTS. Source: patient Exam Limitations: no limitations (CANDIDO VARGHESE) History of Present Illness Date Seen by Provider: Apr 24, 2022 Time Seen by Provider: 16:21 Initial Comments Patient is a 51-year-old female who presents to the ED for change of Curry catheter. Patient states she started having some discomfort with urination over the past few days. Went to her primary care physician at the [facility] in [place] and was prescribed Bactrim. Did to get her Curry catheter removed secondary to increased sediment. She denies feeling feverish, headache, dizziness, abdominal pain, vomiting, diarrhea. Patient has a history of urinary incontinence sec ondary to chronic wounds. (CANDIDO VARGHESE) Allergies and Home Medications Allergies Coded Allergies: naproxen (Verified Allergy, Unknown, 05/01/19) can take ibuprofen Patient Home Medication List Home Medication List Reviewed: Yes (CANDIDO VARGHESE) Acetaminophen (Tylenol Extra Strength) 500 Mg Tablet, 1,000 MG PO BID, (Reported) Entered as Reported by: RICHIE MONTALVO on 03/27/15 1424 Albuterol Sulfate (Ventolin Hfa) 1 Puff Puff, 2 PUFF IH Q4H PRN for SHORTNESS OF BREATH, (Reported) Entered as Reported by: INOCENCIA BOYD on 05/31/19 1147 Atorvastatin Calcium (Atorvastatin Calcium) 80 Mg Tablet, 40 MG PO HS, (Reported) Entered as Reported by: INOCENCIA BOYD on 05/30/19 1535 Cetirizine HCl (Cetirizine HCl) 10 Mg Tablet, 10 MG PO DAILY, (Reported) Entered as Reported by: LYDIA RICHARDSON on 02/15/17 1043 Cholecalciferol (Vitamin D3) (Vitamin D3) 25 Mcg Capsule, 25 MCG PO DAILY, (Reported) Entered as Reported by: INOCENCIA BOYD on 05/30/19 1535 Cyanocobalamin (Vitamin B-12) (Vitamin B12) 2,500 Mcg Tablet, 2,500 MCG PO DAILY, (Reported) Entered as Reported by: INOCENCIA BOYD on 05/31/19 1147 Fluticasone Propionate (Flonase Allergy Relief) 9.9 Ml [place].susp, 2 SPRAY NS DAILY PRN for CONGESTION, (Reported) Entered as Reported by: LYDIA RICHARDSON on 02/15/17 1043 Ketorolac Tromethamine (Ketorolac Tromethamine) 10 Mg Tablet, 10 MG PO TID Prescribed by: KATT GREGORIO MD on 02/08/22 0929 Lisinopril (Lisinopril) 40 Mg Tablet, 20 MG PO DAILY, (Reported) Entered as Reported by: INOCENCIA BOYD on 05/30/19 1535 Omeprazole (Omeprazole) 40 Mg Capsule.dr, 40 MG PO BID, (Reported) Entered as Reported by: LYDIA RICHARDSON on 02/15/17 1043 Ondansetron (Ondansetron Odt) 8 Mg Tab.rapdis, 8 MG SL Q6H PRN for NAUSEA/VOMITING Prescribed by: KATT GREGORIO MD on 02/08/22 0935 Phenylephrine HCl/[place] Butter (Preparation H Suppository) 1 Each Supp.rect, 1 EACH RC TID PRN for HEMMORRHOID DISCOMFORT, (Reported) Entered as Reported by: INOCENCIA BOYD on 05/31/19 1156 Prednisone (Prednisone) 10 Mg Tab.ds.pk, 10 MG PO DAILY Prescribed by: MICHELLE LEYVA on 06/02/19 1003 Trospium Chloride (Trospium Chloride) 20 Mg Tablet, 20 MG PO BID, (Reported) Entered as Reported by: BUTCH WEBSTER on 04/22/19 2307 Review of Systems Review of Systems Constitutional: No chills, No diaphoresis, No malaise, No weakness EENTM: No hearing loss, No blurred vision, No double vision Respiratory: No cough, No dyspnea on exertion, No short of breath Cardiovascular: No chest pain Gastrointestinal: No abdominal pain, No diarrhea, No nausea, No vomiting Genitourinary: burning, pain Musculoskeletal: No back pain, No joint pain Skin: No change in color, No change in hair/nails Psychiatric/Neurological: Denies Anxiety, Denies Depressed (CANDIDO VARGHESE) All Other Systemes Reviewed Negative Unless Noted: Yes (CANDIDO VARGHESE) Past Htairkk-Rcbzkc-Awgnsn Hx Patient Social History Tobacco Use?: Yes Tobacco type used: Cigarettes Smoking Status: Current Everyday Smoker Use of E-Cig and/or Vaping dev: No Substance use?: No Alcohol Use?: No Pt feels they are or have been: No (CANDIDO VARGHESE) Immunizations Up To Date Tetanus Booster (TDap): Unknown PED Vaccines UTD: Yes (CANDIDO VARGHESE) Seasonal Allergies Seasonal Allergies: Yes (CANDIDO VARGHESE) Past Medical History Surgery/Hospitalization HX: HYPERTENSION, HYSTERECTOMY, GALLBLADDER, COMPRESSION RELEASE ON BOTH ARMS Surgeries: Yes (HYST/BSO 2000;INEZ; BILAT CARPAL TUNNEL) Gallbladder, Hysterectomy, Oophorectomy, Orthopedic Respiratory: Yes (SMOKES > 1 PPD) Pneumonia, Chronic Bronchitis, COPD Cardiac: Yes (MURMUR SINCE ) Chronic Edema/Swelling, High Cholesterol, Hypertension Neurological: Yes Headaches /Migraines 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 Sexually Transmitted Disease: Yes (HX HERPES) HIV/AIDS: No Genitourinary: Yes Bladder Infection Gastrointestinal: Yes (S/P INEZ) Gastroesophageal Reflux, Gall Bladder Disease Musculoskeletal: Yes (S/P BILAT CARPAL TUNNEL REPAIR) Arthritis Endocrine: Yes (OBESITY) HEENT: No Loss of Vision: Bilateral Cancer: Yes Ovarian Did You Recieve Any Treatments: Yes What Type of Treatment Did You: Surgical Intervention Psychosocial: Yes Anxiety Integumentary: No Blood Disorders: No Adverse Reaction/Blood Tranf: No (N/A) (CANDIDO VARGHESE) Family Medical History Heart Disease, Cancer, Diabetes (CANDIDO VARGHESE) Physical Exam Vital Signs Vital Signs - First Documented 04/24/22 16:07 Pulse 98 Resp 16 B/P (MAP) 149/91 (110) Pulse Ox 95 O2 Delivery Room Air (REBEL MARCIAL MD) Vital Signs Capillary Refill : Less Than 3 Seconds (CANDIDO VARGHESE) Height, Weight, BMI Height: 5'6.00" Weight: 260lbs. 0.0oz. 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 No surrounding erythema or swelling. No pain to palpate. No abscess) (CANDIDO VARGHESE) Progress/Results/Core Measures Suspected Sepsis SIRS Temperature: Pulse: 98 Respiratory Rate: 16 Blood Pressure 149 /91 Mean: 110 (CANDIDO VARGHESE) Results/Orders Vital Signs/I&O Capillary Refill : Less Than 3 Seconds (CANDIDO VARGHESE) Blood Pressure Mean: 110 Departure Communication (PCP) Sediment buildup in catheter. Patient Was diagnosed with UTI placed on Bactrim today. Took her first dose today. Some mild pain discomfort with urination. Requesting catheter replacement which we replaced with a 16 [place] catheter here. Tolerated procedure well. Urine drainage noted. No current abdominal pain, fever, chills. Continue with Bactrim. She refused [facility]inalysis as [facility] [place] (CANDIDO VARGHESE) Impression Primary Impression: Encounter for Curry catheter replacement Disposition: 01 HOME, SELF-CARE Condition: Stable Departure-Patient Inst. Decision time for Depature: 17:14 (CANDIDO VARGHESE) Referrals: [facility],LOCAL PHYSICIAN (PCP) Primary Care Physician Patient Instructions: Curry Catheter ATTENDING PHYSICIAN NOTE: I was physically present as attending physician in the emergency department during the care of this patient, but I was not directly involved in the decision making or delivery of care for this patient. (REBEL MARCIAL MD) CANDIDO VARGHESE Apr 24, 2022 16:25 REBEL MARCIAL MD Apr 26, 2022 06:30
[2022-04-24] MEDS ORDERED: LIDOCAINE UROJET 2% GEL 10 ML PKG TOP ONE (16:45)
[2022-04-24 17:18] VITALS: BP 139/89
== END 2022-04-24 17:18 | disposition home or self-care (01) ==
LOC: EDUNIT# 15:38 → ER 15:39
DX: Z46.6 Encounter for fitting and adjustment of urinary device (principal); N39.0 Urinary tract infection, site not specified; E66.9 Obesity, unspecified; F17.210 Nicotine dependence, cigarettes, uncomplicated; Z68.42 Body mass index [BMI] 45.0-49.9, adult
CPT/HCPCS: 51702

== ENCOUNTER → 2022-04-28 | Outpatient (CLI) | payer OTHER | LOC: WOUNDCARE 12:50 | PROVIDERS: ATTEND Family Medicine | DX: L98.492 Non-pressure chronic ulcer of skin of other sites with fat layer exposed (principal); L24.A0 Irritant contact dermatitis due to friction or contact with body fluids, unspecified; E66.01 Morbid (severe) obesity due to excess calories; F17.218 Nicotine dependence, cigarettes, with other nicotine-induced disorders; L24.A2 Irritant contact dermatitis due to fecal, urinary or dual incontinence; L89.313 Pressure ulcer of right buttock, stage 3; L88 Pyoderma gangrenosum; I96 Gangrene, not elsewhere classified | CPT/HCPCS: 99214 ==

== ENCOUNTER → 2022-05-12 | Outpatient (CLI) | payer OTHER | LOC: WOUNDCARE 12:40 | PROVIDERS: ATTEND Family Medicine | DX: L98.492 Non-pressure chronic ulcer of skin of other sites with fat layer exposed (principal); L24.A0 Irritant contact dermatitis due to friction or contact with body fluids, unspecified; E66.01 Morbid (severe) obesity due to excess calories; F17.218 Nicotine dependence, cigarettes, with other nicotine-induced disorders; L24.A2 Irritant contact dermatitis due to fecal, urinary or dual incontinence; L89.313 Pressure ulcer of right buttock, stage 3; L88 Pyoderma gangrenosum | CPT/HCPCS: 99213 ==

== ENCOUNTER 2022-05-19 16:15 | Emergency (ER) | payer OTHER ==
--- NOTE | 2022-05-19 16:38 | ED GU-Female ---
General Chief Complaint: - Reproductive Stated Complaint: BLOOD IN URINE/BACK PAIN/CATHETER LEAKING Source: patient, EMS, old records Exam Limitations: no limitations History of Present Illness Date Seen by Provider: May 19, 2022 Time Seen by Provider: 16:19 Initial Comments 51yoF with PMH of urinary incontinence that has had a chronic Lorenzo in place for roughly 5 months to help her lower abdominal and sacral wounds heal coming in due to needing her Lorenzo changed and concerned she could have a UTI. It was last changed a month ago. She is post have a change every month. Home health is supposed to come and do this, but they had to be fired today because they are not showing up. She also is having some suprapubic discomfort that she typically has when she has a UTI. Denies any fever or any other concerns. She states she noticed a little bit of blood in the urine this morning, but none since then. She is otherwise denying any other acute complaints. In regards to the wounds, they are healing well, and she follows wound care here. Allergies and Home Medications Allergies Coded Allergies: diphenhydramine (Verified Allergy, Unknown, Rash, 05/19/22) naproxen (Verified Allergy, Unknown, 05/01/19) can take ibuprofen Patient Home Medication List Home Medication List Reviewed: Yes Acetaminophen (Tylenol Extra Strength) 500 Mg Tablet, 1,000 MG PO BID, (Reported) Entered as Reported by: RICHIE MONTALVO on 03/27/15 1424 Albuterol Sulfate (Ventolin Hfa) 1 Puff Puff, 2 PUFF IH Q4H PRN for SHORTNESS OF BREATH, (Reported) Entered as Reported by: INOCENCIA BOYD on 05/31/19 1147 Atorvastatin Calcium (Atorvastatin Calcium) 80 Mg Tablet, 40 MG PO HS, (Reported) Entered as Reported by: INOCENCIA BOYD on 05/30/19 1535 Cetirizine HCl (Cetirizine HCl) 10 Mg Tablet, 10 MG PO DAILY, (Reported) Entered as Reported by: LYDIA RICHARDSON on 02/15/17 1043 Cholecalciferol (Vitamin D3) (Vitamin D3) 25 Mcg Capsule, 25 MCG PO DAILY, (Reported) Entered as Reported by: INOCENCIA BOYD on 05/30/19 1535 Cyanocobalamin (Vitamin B-12) (Vitamin B12) 2,500 Mcg Tablet, 2,500 MCG PO DAILY, (Reported) Entered as Reported by: INOCENCIA BOYD on 05/31/19 1147 Fluticasone Propionate (Flonase Allergy Relief) 9.9 Ml [place].susp, 2 SPRAY NS DAILY PRN for CONGESTION, (Reported) Entered as Reported by: LYDIA RICHARDSON on 02/15/17 1043 Ketorolac Tromethamine (Ketorolac Tromethamine) 10 Mg Tablet, 10 MG PO TID Prescribed by: KATT GREGORIO MD on 02/08/22 0929 Lisinopril (Lisinopril) 40 Mg Tablet, 20 MG PO DAILY, (Reported) Entered as Reported by: INOCENCIA BOYD on 05/30/19 1535 Omeprazole (Omeprazole) 40 Mg Capsule.dr, 40 MG PO BID, (Reported) Entered as Reported by: LYDIA RICHARDSON on 02/15/17 1043 Ondansetron (Ondansetron Odt) 8 Mg Tab.rapdis, 8 MG SL Q6H PRN for NAUSEA/VOMITING Prescribed by: KATT GREGORIO MD on 02/08/22 0935 Phenylephrine HCl/[place] Butter (Preparation H Suppository) 1 Each Supp.rect, 1 EACH RC TID PRN for HEMMORRHOID DISCOMFORT, (Reported) Entered as Reported by: INOCENCIA BOYD on 05/31/19 1156 Prednisone (Prednisone) 10 Mg Tab.ds.pk, 10 MG PO DAILY Prescribed by: MICHELLE LEYVA on 06/02/19 1003 Trospium Chloride (Trospium Chloride) 20 Mg Tablet, 20 MG PO BID, (Reported) Entered as Reported by: BUTCH WEBSTER on 04/22/19 2307 Review of Systems Review of Systems Constitutional: No fever EENTM: no symptoms reported Respiratory: no symptoms reported Cardiovascular: no symptoms reported Gastrointestinal: no symptoms reported Genitourinary: see HPI Musculoskeletal: no symptoms reported Skin: no symptoms reported Psychiatric/Neurological: No Symptoms Reported Past Icbakzy-Auzapa-Xglftv Hx Patient Social History Tobacco Use?: Yes Tobacco type used: Cigarettes Substance use?: No Alcohol Use?: No Pt feels they are or have been: No Immunizations Up To Date Tetanus Booster (TDap): Unknown PED Vaccines UTD: Yes Influenza Vaccine Up-to-Date: No; Not Current Seasonal Allergies Seasonal Allergies: Yes Past Medical History Surgery/Hospitalization HX: HYPERTENSION, HYSTERECTOMY, GALLBLADDER, COMPRESSION RELEASE ON BOTH ARMS Surgeries: Yes (HYST/BSO 2000;INEZ; BILAT CARPAL TUNNEL) Gallbladder, Hysterectomy, Oophorectomy, Orthopedic Respiratory: Yes (SMOKES > 1 PPD) Pneumonia, Chronic Bronchitis, COPD Cardiac: Yes (MURMUR SINCE ) Chronic Edema/Swelling, High Cholesterol, Hypertension Neurological: Yes Headaches /Migraines Reproductive Disorders: Yes 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: Hysterectomy Sexually Transmitted Disease: Yes (HX HERPES) HIV/AIDS: No Genitourinary: Yes Bladder Infection Gastrointestinal: Yes (S/P INEZ) Gastroesophageal Reflux, Gall Bladder Disease Musculoskeletal: Yes (S/P BILAT CARPAL TUNNEL REPAIR) Arthritis Endocrine: Yes (OBESITY) HEENT: No Loss of Vision: Bilateral Cancer: Yes Ovarian Did You Recieve Any Treatments: Yes What Type of Treatment Did You: Surgical Intervention Psychosocial: Yes Anxiety Integumentary: No Blood Disorders: No Adverse Reaction/Blood Tranf: No (N/A) Family Medical History Heart Disease, Cancer, Diabetes Physical Exam Vital Signs Vital Signs - First Documented 05/19/22 16:23 Temp 36.7 Pulse 60 Resp 18 B/P (MAP) 162/87 (112) Capillary Refill : Height, Weight, BMI Height: 5'6.00" Weight: 260lbs. 0.0oz. [id number]; 46.00 BMI Method:Estimated General Appearance: WD/WN, no apparent distress HEENT: PERRL/EOMI, normal ENT inspection, pharynx normal Neck: non-tender, full range of motion, supple, normal inspection Cardiovascular: regular rate, rhythm, no edema, no murmur Respiratory: chest non-tender, lungs clear, normal breath sounds, no respiratory distress, no accessory muscle use Gastrointestinal: normal bowel sounds, non tender, soft; No distended, No guarding, No rebound Genital/Rectal: other (Lorenzo catheter in place draining slightly cloudy, yellow urine) Back: normal inspection, no CVA tenderness Extremities: normal range of motion, non-tender, normal inspection, no pedal edema, no calf tenderness, normal capillary refill Neurologic/Psychiatric: no motor/sensory deficits, alert, normal mood/affect Skin: normal color, warm/dry, other (Abdominal wound in her right lower abdomen with some subcutaneous fat visible, does not appear infected) Progress/Results/Core Measures Suspected Sepsis SIRS Temperature: Pulse: Respiratory Rate: Blood Pressure / Mean: Results/Orders Lab Results Laboratory Tests Test 05/19/22 16:55 Range/Units Urine Color YELLOW Urine Clarity CLEAR Urine pH 5.5 5-9 Urine Specific [place] 1.010 L 1.016-1.022 Urine Protein NEGATIVE NEGATIVE Urine Glucose (UA) 3+ H NEGATIVE Urine Ketones NEGATIVE NEGATIVE Urine Nitrite NEGATIVE NEGATIVE Urine Bilirubin NEGATIVE NEGATIVE Urine Urobilinogen 0.2 < = 1.0 MG/DL Urine Leukocyte Esterase 1+ H NEGATIVE Urine RBC (Auto) 1+ H NEGATIVE Urine RBC 5-10 H /HPF Urine WBC 10-25 H /HPF Urine Squamous Epithelial Cells 10-25 H /HPF Urine Crystals NONE /LPF Urine Bacteria MODERATE H /HPF Urine Casts NONE /LPF Urine Mucus SMALL H /LPF Urine Culture Indicated YES My Orders Orders - CANDIDO MANUEL MD Catheter(Urinary) Insert & Ass 03,15 (05/19/22 16:31) Lidocaine 2% (Urojet) (Xylocaine Urojet) (05/19/22 16:45) Ua Culture If Indicated (05/19/22 16:31) Urine Culture (05/19/22 16:55) Medications Given in ED Current Medications Medications Dose Ordered Sig/Carlos Route Start Time Stop Time Status Last Admin Dose Admin Lidocaine HCl 10 ml ONCE ONCE TOP 05/19/22 16:45 05/19/22 16:46 DC 05/19/22 16:48 10 ML Vital Signs/I&O 05/19/22 16:23 Temp 36.7 Pulse 60 Resp 18 B/P (MAP) 162/87 (112) Capillary Refill : Progress Note : Progress Note 51-year-old female with above history coming in for a Lorenzo catheter change since her home health aide was fired and did not show up. Also having some suprapubic discomfort that she typically has when she has a UTI. A new Lorenzo was placed and a urinalysis was sent from the new Lorenzo catheter. Departure Impression Primary Impression: Encounter for Lorenzo catheter replacement Additional Impression: Cystitis Disposition: 01 HOME, SELF-CARE Condition: Stable Departure-Patient Inst. Decision time for Depature: 17:31 Referrals: XENA VELASCO (PCP/Family) Primary Care Physician Patient Instructions: Lorenzo Catheter, Urinary Tract Infection, Adult ED Add. Discharge Instructions: He does look like it could be infected with your urine. We will send an antibiotic, if it grows out something that is resistant to the antibiotic, we will call you in change of the antibiotic. Scripts Sulfamethoxazole/Trimethoprim (Bactrim Ds Tablet) 1 Each Tablet 1 EACH PO BID for 7 Days, #14 TAB Prov: ACNDIDO MANUEL MD 05/19/22 Work/School Note: Work Release Form Date Seen in the Emergency Department: May 19, 2022 Return to Work: May 20, 2022 Restrictions: No Restrictions CANDIDO MANUEL MD May 19, 2022 16:38
[2022-05-19] MEDS ORDERED: LIDOCAINE UROJET 2% GEL 10 ML PKG TOP ONE (16:45)
[2022-05-19 17:00] LABS: BILIRUBIN,URINE NEGATIVE (NEGATIVE); CLARITY,URINE CLEAR; COLOR,URINE YELLOW; GLUCOSE, URINE (UA) 3+ (NEGATIVE); KETONES,URINE NEGATIVE (NEGATIVE); LEUKOCYTE ESTERASE ,URINE 1+ (NEGATIVE); NITRITE,URINE NEGATIVE (NEGATIVE); PH,URINE 5.5 (5-9); PROTEIN,URINE NEGATIVE (NEGATIVE)
[2022-05-19 17:24] LABS: BACTERIA,URINE MODERATE /HPF
[2022-05-19] MEDS ORDERED: SULF1TAB38 PO (17:32)
[2022-05-19 17:39] VITALS: BP 162/101
[2022-05-21] MEDS ORDERED: NITR-65 PO (16:33)
== END 2022-05-19 17:39 | disposition home or self-care (01) ==
LOC: EDUNIT# 16:15 → ER 16:19
DX: Z46.6 Encounter for fitting and adjustment of urinary device (principal); N30.90 Cystitis, unspecified without hematuria; E66.9 Obesity, unspecified; F17.210 Nicotine dependence, cigarettes, uncomplicated; Z68.42 Body mass index [BMI] 45.0-49.9, adult; Z90.49 Acquired absence of other specified parts of digestive tract
CPT/HCPCS: 51702; 81000; 87077; 87088; 87186

== ENCOUNTER → 2022-05-26 | Outpatient (CLI) | payer OTHER ==
[~2022-05-26] MED LIST changes: +NITR-65 PO; +SULF1TAB38 PO
== END ==
LOC: WOUNDCARE 12:46
PROVIDERS: ATTEND Family Medicine
DX: L98.492 Non-pressure chronic ulcer of skin of other sites with fat layer exposed (principal); L24.A0 Irritant contact dermatitis due to friction or contact with body fluids, unspecified; E66.01 Morbid (severe) obesity due to excess calories; L24.A2 Irritant contact dermatitis due to fecal, urinary or dual incontinence; L89.313 Pressure ulcer of right buttock, stage 3; L88 Pyoderma gangrenosum; F17.218 Nicotine dependence, cigarettes, with other nicotine-induced disorders
CPT/HCPCS: 99212

== ENCOUNTER → 2022-06-09 | Outpatient (CLI) | payer OTHER | LOC: WOUNDCARE 12:41 | PROVIDERS: ATTEND Family Medicine | DX: L98.492 Non-pressure chronic ulcer of skin of other sites with fat layer exposed (principal); E66.01 Morbid (severe) obesity due to excess calories; F17.218 Nicotine dependence, cigarettes, with other nicotine-induced disorders; L88 Pyoderma gangrenosum; I96 Gangrene, not elsewhere classified | CPT/HCPCS: 99212 ==

== ENCOUNTER 2022-06-17 09:24 | Emergency (ER) | payer OTHER ==
[~2022-06-17] VITALS: Ht 157 cm; Wt 114.0 kg
[2022-06-17 09:47] VITALS: BP 126/86
--- NOTE | 2022-06-17 09:51 | ED GU-Female ---
General Chief Complaint: Catheter/Drain/Tube Problems Stated Complaint: CATHETER NEEDS CHANGED Source: patient Exam Limitations: no limitations History of Present Illness Date Seen by Provider: Jun 17, 2022 Time Seen by Provider: 09:42 Initial Comments 51-year-old female presents to the emergency department today for requesting urinary catheter change. She states she gets it changed once a month. She only goes to the [facility] but they did not have the supplies. She also has home health with a would have had to order the catheter. She is having leaking around it which she states typically happens when she needs it changed. She denies any fevers chills abdominal pain. She would like checked for urinary tract infe ction as she states she does so with each bag change. She does get her catheter removed in a couple more months as long as things go well according to her report. All other systems reviewed and negative except documented per HPI. Voice recognition software was used to help create this chart Allergies and Home Medications Allergies Coded Allergies: diphenhydramine (Verified Allergy, Unknown, Rash, 05/19/22) naproxen (Verified Allergy, Unknown, 05/01/19) can take ibuprofen Patient Home Medication List Home Medication List Reviewed: Yes Acetaminophen (Tylenol Extra Strength) 500 Mg Tablet, 1,000 MG PO BID, (Reported) Entered as Reported by: RICHIE MONTALVO on 03/27/15 1424 Albuterol Sulfate (Ventolin Hfa) 1 Puff Puff, 2 PUFF IH Q4H PRN for SHORTNESS OF BREATH, (Reported) Entered as Reported by: INOCENCIA BOYD on 05/31/19 1147 Atorvastatin Calcium (Atorvastatin Calcium) 80 Mg Tablet, 40 MG PO HS, (Reported) Entered as Reported by: IONCENCIA BOYD on 05/30/19 1535 Cetirizine HCl (Cetirizine HCl) 10 Mg Tablet, 10 MG PO DAILY, (Reported) Entered as Reported by: LYDIA RICHARDSON on 02/15/17 1043 Cholecalciferol (Vitamin D3) (Vitamin D3) 25 Mcg Capsule, 25 MCG PO DAILY, (Reported) Entered as Reported by: INOCENCIA BOYD on 05/30/19 1535 Cyanocobalamin (Vitamin B-12) (Vitamin B12) 2,500 Mcg Tablet, 2,500 MCG PO DAILY, (Reported) Entered as Reported by: INOCENCIA BOYD on 05/31/19 1147 Fluticasone Propionate (Flonase Allergy Relief) 9.9 Ml [place].susp, 2 SPRAY NS D AILY PRN for CONGESTION, (Reported) Entered as Reported by: LYDIA RICHARDSON on 02/15/17 1043 Ketorolac Tromethamine (Ketorolac Tromethamine) 10 Mg Tablet, 10 MG PO TID Prescribed by: KATT GREGORIO MD on 02/08/22 0929 Lisinopril (Lisinopril) 40 Mg Tablet, 20 MG PO DAILY, (Reported) Entered as Reported by: INOCENCIA BOYD on 05/30/19 1535 Nitrofurantoin Monohyd/M-Cryst (Macrobid 100 mg Capsule) 100 Mg Capsule, 1 TAB PO BID Prescribed by: JADON GILL on 05/21/22 1633 Omeprazole (Omeprazole) 40 Mg Capsule.dr, 40 MG PO BID, (Reported) Entered as Reported by: LYDIA RICHARDSON on 02/15/17 1043 Ondansetron (Ondansetron Odt) 8 Mg Tab.rapdis, 8 MG SL Q6H PRN for NAUSEA/VOMITING Prescribed by: KATT GREGORIO MD on 02/08/22 0935 Phenylephrine HCl/[place] Butter (Preparation H Suppository) 1 Each Supp.rect, 1 EACH RC TID PRN for HEMMORRHOID DISCOMFORT, (Reported) Entered as Reported by: INOCENCIA BOYD on 05/31/19 1156 Prednisone (Prednisone) 10 Mg Tab.ds.pk, 10 MG PO DAILY Prescribed by: MICHELLE LEYVA on 06/02/19 1003 Sulfamethoxazole/Trimethoprim (Bactrim Ds Tablet) 1 Each Tablet, 1 EACH PO BID Prescribed by: CANDIDO MANUEL on 05/19/22 1732 Trospium Chloride (Trospium Chloride) 20 Mg Tablet, 20 MG PO BID, (Reported) Entered as Reported by: BUTCH WEBSTER on 04/22/19 2306 Review of Systems Review of Systems Constitutional: see HPI Past Sbxkwav-Nvjlra-Ubandj Hx Patient Social History Tobacco Use?: No Use of E-Cig and/or Vaping dev: No Substance use?: No Alcohol Use?: No Immunizations Up To Date Tetanus Booster (TDap): Unknown PED Vaccines UTD: Yes Seasonal Allergies Seasonal Allergies: Yes Past Medical History Surgery/Hospitalization HX: HYPERTENSION, HYSTERECTOMY, GALLBLADDER, COMPRESSION RELEASE ON BOTH ARMS Surgeries: Yes (HYST/BSO 2000;INEZ; BILAT CARPAL TUNNEL) Gallbladder, Hysterectomy, Oophorectomy, Orthopedic Respiratory: Yes (SMOKES > 1 PPD) Pneumonia, Chronic Bronchitis, COPD Cardiac: Yes (MURMUR SINCE ) Chronic Edema/Swelling, High Cholesterol, Hypertension Neurological: Yes Headaches /Migraines Reproductive Disorders: Yes [employer] History: Hysterectomy Sexually Transmitted Disease: Yes (HX HERPES) HIV/AIDS: No Genitourinary: Yes Bladder Infection Gastrointestinal: Yes (S/P INEZ) Gastroesophageal Reflux, Gall Bladder Disease Musculoskeletal: Yes (S/P BILAT CARPAL TUNNEL REPAIR) Arthritis Endocrine: Yes (OBESITY) HEENT: No Loss of Vision: Bilateral Cancer: Yes Ovarian Did You Recieve Any Treatments: Yes What Type of Treatment Did You: Surgical Intervention Psychosocial: Yes Anxiety Integumentary: No Blood Disorders: No Adverse Reaction/Blood Tranf: No (N/A) Family Medical History Reviewed Nursing Family Hx Heart Disease, Cancer, Diabetes Physical Exam Vital Signs Capillary Refill : Height, Weight, BMI Height: 5'6.00" Weight: 260lbs. 0.0oz. 117.354011sm; 46.00 BMI Method:Estimated General Appearance: WD/WN, no apparent distress Genital/Rectal: other (Lorenzo catheter in place. Clear urine with some sediment.) Progress/Results/Core Measures Suspected Sepsis SIRS Temperature: Pulse: Respiratory Rate: Blood Pressure / Mean: Results/Orders Vital Signs/I&O Capillary Refill : Departure Communication (Admissions) Catheter changed without difficulty. Will await urine culture for further recommendations on antibiotics versus not. Discharged in stable condition. Impression Primary Impression: Encounter for Lorenzo catheter replacement Disposition: 01 HOME, SELF-CARE Condition: Stable Departure-Patient Inst. Referrals: XENA VELASCO (PCP/Family) Primary Care Physician Add. Discharge Instructions: Urine is pending, we will treat based on cultures. Increase your fluids at home. Rest. All discharge instructions reviewed with patient and/or family. Voiced understanding. KATT GREGORIO DO Jun 17, 2022 09:51
[2022-06-17] MEDS ORDERED: LIDOCAINE UROJET 2% GEL 10 ML PKG TOP ONE (10:15)
[2022-06-17 10:26] LABS: BILIRUBIN,URINE NEGATIVE (NEGATIVE); CLARITY,URINE CLEAR; COLOR,URINE YELLOW; GLUCOSE, URINE (UA) 2+ (NEGATIVE); KETONES,URINE NEGATIVE (NEGATIVE); LEUKOCYTE ESTERASE ,URINE TRACE (NEGATIVE); NITRITE,URINE NEGATIVE (NEGATIVE); PH,URINE 5.5 (5-9); PROTEIN,URINE NEGATIVE (NEGATIVE)
[2022-06-17 10:38] LABS: BACTERIA,URINE TRACE /HPF; HYALINE CASTS, URINE 0-2 /LPF; SQUAMOUS EPITHELIAL CELL,UR 0-2 /HPF
== END 2022-06-17 10:41 | disposition home or self-care (01) ==
LOC: EDUNIT# 09:24 → ER 09:26
DX: Z46.6 Encounter for fitting and adjustment of urinary device (principal); E66.9 Obesity, unspecified; Z68.42 Body mass index [BMI] 45.0-49.9, adult; Z87.891 Personal history of nicotine dependence; Z28.310 Unvaccinated for COVID-19
CPT/HCPCS: 81000; 99282

== ENCOUNTER → 2022-06-23 | Outpatient (CLI) | payer OTHER | LOC: WOUNDCARE 12:39 | PROVIDERS: ATTEND Family Medicine | DX: L98.492 Non-pressure chronic ulcer of skin of other sites with fat layer exposed (principal); E66.01 Morbid (severe) obesity due to excess calories; F17.218 Nicotine dependence, cigarettes, with other nicotine-induced disorders; L88 Pyoderma gangrenosum | CPT/HCPCS: 99212 ==

== ENCOUNTER → 2022-06-26 | Outpatient (CLI) | payer OTHER ==
[~2022-06-26] MED LIST changes: +HOLD METFORMIN - RECEIVED CONTRAST 20 ML VIAL IV SCH; +IOHEXOL 350 MG/ML 150 ML (OMNIPAQUE 350) VIAL IV ONE; +NS 100 ML (IVPB) BAG IV ONE
--- NOTE | 2022-06-26 14:23 | Diagnostic Imaging Report ---
EXAMINATION: CT angiography aorta and lower extremity with runoffs. TECHNIQUE: Multiple contiguous axial images were obtained through the abdomen , pelvis and lower extremities after administration of intravenous contrast. 3D MIP reconstructed CTA acquisition were then performed. All CT scans use one or more of the following dose optimizing techniques: automated exposure control, MA and/or KvP adjustment based on a patient size and exam type, or iterative reconstruction. HISTORY: Peripheral vascular disease COMPARISON: None available. FINDINGS: Vascular findings: Abdominal aorta: Mild stenosis Celiac artery: Mild stenosis. Superior mesenteric artery: No stenosis. Right renal artery: Mild stenosis. Left renal artery: High stenosis. Inferior [place] artery: Patent Right common iliac artery: Occluded Right external iliac artery: Reconstituted without stenosis. Right common femoral artery: No stenosis. Right superficial femoral artery: No stenosis. Right deep femoral artery: No stenosis. Right popliteal artery: No stenosis. Right posterior tibial artery: No stenosis. Right anterior tibial artery: No stenosis. Right peroneal artery: No stenosis. Right ankle and foot vessels: No stenosis. Left common iliac artery: Moderate stenosis at the origin. Left external iliac artery: No stenosis. Left common femoral artery: No stenosis. Left superficial femoral artery: No stenosis. Left deep femoral artery: No stenosis. Left popliteal artery: No stenosis. Left posterior tibial artery: No stenosis. Left anterior tibial artery: No stenosis. Left peroneal artery: No stenosis. Left ankle and foot vessels: No stenosis. Other findings: Limited views of the lower thorax are unremarkable. The liver is normal without focal lesion. There is no biliary ductal dilation. Gallbladder is absent. Pancreas is normal. Spleen is normal. Adrenal glands are normal. The kidneys are normal. There is no hydronephrosis. Urinary bladder is decompressed by Lorenzo catheter. Bowel is normal in caliber without obstruction or inflammation. No free fluid or air. No abdominal or pelvic lymphadenopathy. There are no suspicious osseus lesions. IMPRESSION: 1. Aortobiiliac disease with occluded right common iliac artery and moderate stenosis of the left common iliac artery. Dictated by: Dictated on workstation # [id number]
== END ==
LOC: RAD 10:15
PROVIDERS: ATTEND Nurse Practitioner
DX: I73.9 Peripheral vascular disease, unspecified (principal); I70.90 Unspecified atherosclerosis
CPT/HCPCS: 75635

== ENCOUNTER 2022-07-14 12:46 | Emergency (ER) | payer OTHER ==
[~2022-07-14] VITALS: Ht 165 cm; Wt 119.0 kg
[~2022-07-14 12:46] MED LIST changes: -CEFU500T63 PO
[2022-07-14 13:16] VITALS: BP 117/77
[2022-07-14] MEDS ORDERED: LIDOCAINE UROJET 2% GEL 10 ML PKG ONE (14:41)
[2022-07-14] MEDS ORDERED: LIDOCAINE UROJET 2% GEL 10 ML PKG TOP ONE (14:45)
--- NOTE | 2022-07-14 14:46 | ED GU-Female ---
General Chief Complaint: Catheter/Drain/Tube Problems Stated Complaint: CATHETER CHANGE Nursing Triage Note: PT AMB TO TRIAGE, PT STATES NEEDS CATHETER CHANGED, LAST CHANGE WAS 06/17/22. PT STATES HAS HH BUT NURSE IS OUT FOR EMERGENCY SURG Source: patient Exam Limitations: no limitations History of Present Illness Date Seen by Provider: July 14, 2022 Time Seen by Provider: 14:35 Initial Comments 51-year-old female presents to the ED to have her catheter changed. She has an in-home nurse, but states that nurse is sick and was unable to change it for her. She reports that the catheter is leaking. She has a catheter due to incontinence which caused wounds in her groin. She is supposed to see urology at the end of this month. She denies fevers, abdominal pain, vomiting, back pain. She reports some nausea, thinks is because she has not eaten today. She would like her urine checked for infection, states that they always check it when they change her catheter. Allergies and Home Medications Allergies Coded Allergies: diphenhydramine (Verified Allergy, Unknown, Rash, 05/19/22) naproxen (Verified Allergy, Unknown, 05/01/19) can take ibuprofen Patient Home Medication List Home Medication List Reviewed: Yes Acetaminophen (Tylenol Extra Strength) 500 Mg Tablet, 1,000 MG PO BID, (Reported) Entered as Reported by: RICHIE MONTALVO on 03/27/15 1424 Albuterol Sulfate (Ventolin Hfa) 1 Puff Puff, 2 PUFF IH Q4H PRN for SHORTNESS OF BREATH, (Reported) Entered as Reported by: INOCENCIA BOYD on 05/31/19 1147 Atorvastatin Calcium (Atorvastatin Calcium) 80 Mg Tablet, 40 MG PO HS, (Reported) Entered as Reported by: INOCENCIA BOYD on 05/30/19 1535 Cefuroxime Axetil (Cefuroxime) 500 Mg Tablet, 500 MG PO BID Prescribed by: Renuka Maria on 07/14/22 1539 Cetirizine HCl (Cetirizine HCl) 10 Mg Tablet, 10 MG PO DAILY, (Reported) Entered as Reported by: LYDIA RICHARDSON on 02/15/17 1043 Cholecalciferol (Vitamin D3) (Vitamin D3) 25 Mcg Capsule, 25 MCG PO DAILY, (Reported) Entered as Reported by: INOCENCIA BOYD on 05/30/19 1535 Cyanocobalamin (Vitamin B-12) (Vitamin B12) 2,500 Mcg Tablet, 2,500 MCG PO DAILY, (Reported) Entered as Reported by: INOCENCIA BOYD on 05/31/19 1147 Fluticasone Propionate (Flonase Allergy Relief) 9.9 Ml [place].susp, 2 SPRAY NS DAILY PRN for CONGESTION, (Reported) Entered as Reported by: LYDIA RICHARDSON on 02/15/17 1043 Ketorolac Tromethamine (Ketorolac Tromethamine) 10 Mg Tablet, 10 MG PO TID Prescribed by: KATT GREGORIO MD on 02/08/22 0929 Lisinopril (Lisinopril) 40 Mg Tablet, 20 MG PO DAILY, (Reported) Entered as Reported by: INOCENCIA BOYD on 05/30/19 1535 Nitrofurantoin Monohyd/M-Cryst (Macrobid 100 mg Capsule) 100 Mg Capsule, 1 TAB PO BID Prescribed by: JADON GILL on 05/21/22 1633 Omeprazole (Omeprazole) 40 Mg Capsule.dr, 40 MG PO BID, (Reported) Entered as Reported by: LYDIA RICHARDSON on 02/15/17 1043 Ondansetron (Ondansetron Odt) 8 Mg Tab.rapdis, 8 MG SL Q6H PRN for NAUSEA/VOMITING Prescribed by: KATT GREGORIO MD on 02/08/22 0935 Phenylephrine HCl/[place] Butter (Preparation H Suppository) 1 Each Supp.rect, 1 EACH RC TID PRN for HEMMORRHOID DISCOMFORT, (Reported) Entered as Reported by: INOCENCIA BOYD on 05/31/19 1156 Prednisone (Prednisone) 10 Mg Tab.ds.pk, 10 MG PO DAILY Prescribed by: MICHELLE LEYVA on 06/02/19 1003 Sulfamethoxazole/Trimethoprim (Bactrim Ds Tablet) 1 Each Tablet, 1 EACH PO BID Prescribed by: CANDIDO MANUEL on 05/19/22 1732 Trospium Chloride (Trospium Chloride) 20 Mg Tablet, 20 MG PO BID, (Reported) Entered as Reported by: BUTCH WEBSTER on 04/22/19 2307 Review of Systems Review of Systems Constitutional: see HPI Past Zfbuadd-Ytghtv-Kbsbdb Hx Patient Social History Tobacco Use?: Yes Tobacco type used: Cigarettes Substance use?: No Alcohol Use?: No Pt feels they are or have been: No Immunizations Up To Date Tetanus Booster (TDap): Unknown PED Vaccines UTD: Yes Influenza Vaccine Up-to-Date: No; Not Current Seasonal Allergies Seasonal Allergies: Yes Past Medical History Surgery/Hospitalization HX: HYPERTENSION, HYSTERECTOMY, GALLBLADDER, COMPRESSION RELEASE ON BOTH ARMS, knight cathether Surgeries: Yes (HYST/BSO 2000;INEZ; BILAT CARPAL TUNNEL) Gallbladder, Hysterectomy, Oophorectomy, Orthopedic Respiratory: Yes (SMOKES > 1 PPD) Pneumonia, Chronic Bronchitis, COPD Cardiac: Yes (MURMUR SINCE ) Chronic Edema/Swelling, High Cholesterol, Hypertension Neurological: Yes Headaches /Migraines 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 Sexually Transmitted Disease: Yes (HX HERPES) HIV/AIDS: No Genitourinary: Yes Bladder Infection Gastrointestinal: Yes (S/P INEZ) Gastroesophageal Reflux, Gall Bladder Disease Musculoskeletal: Yes (S/P BILAT CARPAL TUNNEL REPAIR) Arthritis Endocrine: Yes (OBESITY) HEENT: No Loss of Vision: Bilateral Cancer: Yes Ovarian Did You Recieve Any Treatments: Yes What Type of Treatment Did You: Surgical Intervention Psychosocial: Yes Anxiety Integumentary: No Blood Disorders: No Adverse Reaction/Blood Tranf: No (N/A) Family Medical History Heart Disease, Cancer, Diabetes Physical Exam Vital Signs Vital Signs - First Documented 07/14/22 13:16 Temp 36.7 Pulse 97 Resp 16 B/P (MAP) 117/77 (90) Pulse Ox 95 Capillary Refill : Less Than 3 Seconds Height, Weight, BMI Height: 5'6.00" Weight: 260lbs. 0.0oz. [id number]; 43.00 BMI Method:Estimated General Appearance: WD/WN, no apparent distress Neck: supple, normal inspection Cardiovascular: regular rate, rhythm Respiratory: lungs clear, normal breath sounds, no respiratory distress, no accessory muscle use Extremities: normal range of motion, normal inspection Neurologic/Psychiatric: alert, normal mood/affect Skin: normal color, warm/dry Progress/Results/Core Measures Suspected Sepsis SIRS Temperature: Pulse: 97 Respiratory Rate: 16 Blood Pressure 117 /77 Mean: 90 Results/Orders Lab Results My Orders Medications Given in ED Vital Signs/I&O Capillary Refill : Less Than 3 Seconds Blood Pressure Mean: 90 Progress Note : Progress Note Patient seen and evaluated, resting comfortably in bed, no acute distress. Will replace Knight catheter, and obtain urinalysis. UA shows 2+ leukocytes, 1+ RBCs, 5-10 WBCs, 10-24 squamous epithelial cells, and moderate bacteria. Possibly a contaminated specimen, but will treat for UTI. First dose of antibiotic ordered here now and will discharge with prescription. Patient left prior to receiving discharge instructions. 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 Departure Impression Primary Impression: UTI (urinary tract infection) Additional Impression: Encounter for Knight catheter replacement Disposition: HOME, SELF-CARE Condition: Stable Departure-Patient Inst. Decision time for Depature: 15:35 Referrals: XENA VELASCO (PCP/Family) Primary Care Physician Patient Instructions: Urinary Tract Infections in Adults Add. Discharge Instructions: Complete full course of antibiotic as directed. Follow-up with your primary care provider. Return for no urinary output, fever, lower back pain, or any other new, concerning, or worsening symptoms. All discharge instructions reviewed with patient and/or family. Voiced understanding. Scripts Cefuroxime Axetil (Cefuroxime) 500 Mg Tablet 500 MG PO BID for 10 Days, #20 TAB 0 Refills Prov: RENUKA MARIA APRN 07/14/22 RENUKA MARIA APRN July 14, 2022 14:46
[2022-07-14 15:01] LABS: BILIRUBIN,URINE NEGATIVE (NEGATIVE); CLARITY,URINE CLEAR; COLOR,URINE YELLOW; GLUCOSE, URINE (UA) TRACE (NEGATIVE); KETONES,URINE NEGATIVE (NEGATIVE); LEUKOCYTE ESTERASE ,URINE 2+ (NEGATIVE); NITRITE,URINE NEGATIVE (NEGATIVE); PROTEIN,URINE NEGATIVE (NEGATIVE)
[2022-07-14 15:13] LABS: BACTERIA,URINE MODERATE /HPF
[2022-07-14] MEDS ORDERED: CEFU500T63 PO (15:39)
[2022-07-14] MEDS ORDERED: CEFUROXIME AXETIL 500 MG PO ONE (15:45)
== END 2022-07-14 15:40 | disposition home or self-care (01) ==
LOC: EDUNIT# 12:46 → ER 12:48
DX: N39.0 Urinary tract infection, site not specified (principal); Z46.6 Encounter for fitting and adjustment of urinary device; F17.210 Nicotine dependence, cigarettes, uncomplicated; E66.9 Obesity, unspecified; Z68.41 Body mass index [BMI] 40.0-44.9, adult
CPT/HCPCS: 51702; 81000; 87077; 87088

== ENCOUNTER → 2022-07-14 | Outpatient (CLI) | payer OTHER ==
[~2022-07-14] MED LIST changes: +CEFU500T63 PO; -HOLD METFORMIN - RECEIVED CONTRAST 20 ML VIAL IV SCH; -IOHEXOL 350 MG/ML 150 ML (OMNIPAQUE 350) VIAL IV ONE; -NS 100 ML (IVPB) BAG IV ONE
== END ==
LOC: WOUNDCARE 11:58
PROVIDERS: ATTEND Family Medicine
DX: L98.492 Non-pressure chronic ulcer of skin of other sites with fat layer exposed (principal); E66.01 Morbid (severe) obesity due to excess calories; F17.218 Nicotine dependence, cigarettes, with other nicotine-induced disorders; L88 Pyoderma gangrenosum
CPT/HCPCS: 99212

== ENCOUNTER → 2022-07-28 | Outpatient (CLI) | payer OTHER ==
[~2022-07-28] MED LIST changes: +CEFU500T63 PO
== END ==
LOC: WOUNDCARE 12:23
PROVIDERS: ATTEND Family Medicine
DX: L98.492 Non-pressure chronic ulcer of skin of other sites with fat layer exposed (principal); E66.01 Morbid (severe) obesity due to excess calories; L88 Pyoderma gangrenosum; F17.218 Nicotine dependence, cigarettes, with other nicotine-induced disorders
CPT/HCPCS: 99212

== ENCOUNTER 2022-08-04 12:06 | Emergency (ER) | payer OTHER ==
[~2022-08-04] VITALS: Ht 157.5 cm; Wt 113.4 kg
[2022-08-04 12:15] VITALS: BP 140/106
--- NOTE | 2022-08-04 12:25 | ED GU-Female ---
General Chief Complaint: - Reproductive Stated Complaint: CATHETER CHANGE | LEAKING Nursing Triage Note: PT AMB TO ED BY POV WITH C/O LEAKING CATHETER. PT HAD 16 TURKMEN CURRY REPLACED HERE ON 07/14 AND REPORTS SHE STARTED LEAKING AROUND THE CATHETER TWO DAYS AGO. PT IS BEING TREATED FOR UTI AND YEAST INFECTION. PT REPORTS SHE SAW UROLOGIST THIS MORNING. Source: patient Exam Limitations: no limitations History of Present Illness Date Seen by Provider: August 04, 2022 Time Seen by Provider: 12:23 Initial Comments Patient is a 51-year-old female who presents ED for leaking catheter. States around 2 days ago she has been leaking around her vaginal area. She states she is wetting her underwear and pants. Patient has a history of of indwelling catheter since February. History of urinary incontinence. She followed up with urology today Dr. Jasso who would not change patient's catheter and recommended come to ED. She is currently on cefuroxime for UTI. She reports feeling the urge to urinate. She denies fever, chills, abdominal pain, nausea, vomiting, diarrhea. She is producing urine. It is recommended to get a urine sample today and send the results to her urologist. She did report some vaginal itching took [id number] medication for yeast with improvement of vaginal itching Allergies and Home Medications Allergies Coded Allergies: diphenhydramine (Verified Allergy, Unknown, Rash, 05/19/22) naproxen (Verified Allergy, Unknown, 05/01/19) can take ibuprofen Patient Home Medication List Home Medication List Reviewed: Yes Acetaminophen (Tylenol Extra Strength) 500 Mg Tablet, 1,000 MG PO BID, (Reported) Entered as Reported by: RICHIE MONTLAVO on 03/27/15 1424 Albuterol Sulfate (Ventolin Hfa) 1 Puff Puff, 2 PUFF IH Q4H PRN for SHORTNESS OF BREATH, (Reported) Entered as Reported by: INOCENCIA BOYD on 05/31/19 1147 Atorvastatin Calcium (Atorvastatin Calcium) 80 Mg Tablet, 40 MG PO HS, (Reported) Entered as Reported by: INOCENCIA BOYD on 05/30/19 1535 Cefuroxime Axetil (Cefuroxime) 500 Mg Tablet, 500 MG PO BID Prescribed by: Renuka Casey on 07/14/22 1539 Cetirizine HCl (Cetirizine HCl) 10 Mg Tablet, 10 MG PO DAILY, (Reported) Entered as Reported by: LYDIA RICHARDSON on 02/15/17 1043 Cholecalciferol (Vitamin D3) (Vitamin D3) 25 Mcg Capsule, 25 MCG PO DAILY, (Reported) Entered as Reported by: INOCENCIA BOYD on 05/30/19 1535 Cyanocobalamin (Vitamin B-12) (Vitamin B12) 2,500 Mcg Tablet, 2,500 MCG PO DAILY, (Reported) Entered as Reported by: INOCENCIA BOYD on 05/31/19 1147 Fluconazole (Diflucan) 150 Mg Tablet, 150 MG PO DAILY Prescribed by: SELENE GUEVARA on 08/04/22 1301 Fluticasone Propionate (Flonase Allergy Relief) 9.9 Ml [place].susp, 2 SPRAY NS DAILY PRN for CONGESTION, (Reported) Entered as Reported by: LYDIA RICHARDSON on 02/15/17 1043 Ketorolac Tromethamine (Ketorolac Tromethamine) 10 Mg Tablet, 10 MG PO TID Prescribed by: KATT GREGORIO MD on 02/08/22 0929 Lisinopril (Lisinopril) 40 Mg Tablet, 20 MG PO DAILY, (Reported) Entered as Reported by: INOCENCIA BOYD on 05/30/19 1535 Nitrofurantoin Macrocrystal (Nitrofurantoin) 100 Mg Capsule, 100 MG PO BID Prescribed by: SELENE GUEVARA on 08/04/22 1301 Nitrofurantoin Monohyd/M-Cryst (Macrobid 100 mg Capsule) 100 Mg Capsule, 1 TAB PO BID Prescribed by: JADON GILL on 05/21/22 1633 Omeprazole (Omeprazole) 40 Mg Capsule.dr, 40 MG PO BID, (Reported) Entered as Reported by: LYDIA RICHARDSON on 02/15/17 1043 Ondansetron (Ondansetron Odt) 8 Mg Tab.rapdis, 8 MG SL Q6H PRN for NAUSEA/VOMITING Prescribed by: KATT GREGORIO MD on 02/08/22 0935 Phenylephrine HCl/[place] Butter (Preparation H Suppository) 1 Each Supp.rect, 1 EACH RC TID PRN for HEMMORRHOID DISCOMFORT, (Reported) Entered as Reported by: INOCENCIA BOYD on 05/31/19 1156 Prednisone (Prednisone) 10 Mg Tab.ds.pk, 10 MG PO DAILY Prescribed by: MICHELLE LEYVA on 06/02/19 1003 Sulfamethoxazole/Trimethoprim (Bactrim Ds Tablet) 1 Each Tablet, 1 EACH PO BID Prescribed by: CANDIDO MANUEL on 05/19/22 1732 Trospium Chloride (Trospium Chloride) 20 Mg Tablet, 20 MG PO BID, (Reported) Entered as Reported by: BUTCH WEBSTER on 04/22/19 2307 Review of Systems Review of Systems Constitutional: No chills, No diaphoresis, No fever, No malaise, No weakness EENTM: No hearing loss, No blurred vision, No double vision Respiratory: No cough, No dyspnea on exertion Cardiovascular: No chest pain Gastrointestinal: No abdominal pain, No diarrhea, No nausea, No vomiting Genitourinary: denies burning, denies discharge; urgency Musculoskeletal: No back pain, No joint pain Skin: No change in color, No change in hair/nails All Other Systemes Reviewed Negative Unless Noted: Yes Past Eacmebz-Lrpqgb-Jgaceg Hx Immunizations Up To Date Tetanus Booster (TDap): Unknown PED Vaccines UTD: Yes Seasonal Allergies Seasonal Allergies: Yes Past Medical History Surgery/Hospitalization HX: HYPERTENSION, HYSTERECTOMY, GALLBLADDER, COMPRESSION RELEASE ON BOTH ARMS, curry cathether Surgeries: Yes (HYST/BSO 2000;INEZ; BILAT CARPAL TUNNEL) Gallbladder, Hysterectomy, Oophorectomy, Orthopedic Respiratory: Yes (SMOKES > 1 PPD) Pneumonia, Chronic Bronchitis, COPD Cardiac: Yes (MURMUR SINCE ) Chronic Edema/Swelling, High Cholesterol, Hypertension Neurological: Yes Headaches /Migraines 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 Sexually Transmitted Disease: Yes (HX HERPES) HIV/AIDS: No Genitourinary: Yes Bladder Infection Gastrointestinal: Yes (S/P INZE) Gastroesophageal Reflux, Gall Bladder Disease Musculoskeletal: Yes (S/P BILAT CARPAL TUNNEL REPAIR) Arthritis Endocrine: Yes (OBESITY) HEENT: No Loss of Vision: Bilateral Cancer: Yes Ovarian Did You Recieve Any Treatments: Yes What Type of Treatment Did You: Surgical Intervention Psychosocial: Yes Anxiety Integumentary: No Blood Disorders: No Adverse Reaction/Blood Tranf: No (N/A) Family Medical History Heart Disease, Cancer, Diabetes Physical Exam Vital Signs Vital Signs - First Documented 08/04/22 12:15 Temp 36.7 Pulse 93 Resp 18 B/P (MAP) 140/106 (117) Pulse Ox 95 O2 Delivery Room Air Capillary Refill : Less Than 3 Seconds Height, Weight, BMI Height: 5'6.00" Weight: 260lbs. 0.0oz. 117.634950lu; 45.00 BMI Method:Estimated General Appearance: WD/WN, no apparent distress HEENT: PERRL/EOMI, normal ENT inspection, TMs normal, pharynx normal Neck: non-tender, full range of motion, supple, normal inspection Cardiovascular: regular rate, rhythm, no edema, no gallop, no JVD Respiratory: chest non-tender, lungs clear, normal breath sounds, no respiratory distress, no accessory muscle use Gastrointestinal: normal bowel sounds, non tender, soft, no organomegaly, no pulsatile mass Genital/Rectal: other (Indwelling catheter in place.) Back: normal inspection, no CVA tenderness Extremities: normal range of motion, non-tender, no pedal edema, no calf tenderness Skin: normal color, warm/dry Progress/Results/Core Measures Suspected Sepsis SIRS Temperature: Pulse: 93 Respiratory Rate: 18 Blood Pressure 140 /106 Mean: 117 Results/Orders Lab Results Laboratory Tests Test 08/04/22 12:40 Range/Units Urine Color YELLOW Urine Clarity CLEAR Urine pH 6.0 5-9 Urine Specific [place] 1.010 L 1.016-1.022 Urine Protein NEGATIVE NEGATIVE Urine Glucose (UA) TRACE H NEGATIVE Urine Ketones NEGATIVE NEGATIVE Urine Nitrite NEGATIVE NEGATIVE Urine Bilirubin NEGATIVE NEGATIVE Urine Urobilinogen 0.2 < = 1.0 MG/DL Urine Leukocyte Esterase 3+ H NEGATIVE Urine RBC (Auto) TRACE-I H NEGATIVE Urine RBC 2-5 H /HPF Urine WBC 10-25 H /HPF Urine Crystals NONE /LPF Urine Bacteria MODERATE H /HPF Urine Casts PRESENT /LPF Urine Hyaline Casts 10-25 H /LPF Urine Mucus NEGATIVE /LPF Urine Yeast MODERATE H /HPF Urine Culture Indicated YES My Orders Orders - CANDIDO VARGHESE Ua Culture If Indicated (08/04/22 12:21) Catheter(Urinary) Insert & Ass 03,15 (08/04/22 12:22) Lidocaine 2% (Urojet) (Xylocaine Urojet) (08/04/22 12:30) Urine Culture (08/04/22 12:40) Medications Given in ED Current Medications Medications Dose Ordered Sig/Carlos Route Start Time Stop Time Status Last Admin Dose Admin Lidocaine HCl 10 ml ONCE ONCE TOP 08/04/22 12:30 08/04/22 12:31 DC 08/04/22 12:30 10 ML Vital Signs/I&O 08/04/22 12:15 Temp 36.7 Pulse 93 Resp 18 B/P (MAP) 140/106 (117) Pulse Ox 95 O2 Delivery Room Air Capillary Refill : Less Than 3 Seconds Blood Pressure Mean: 117 Departure Communication (PCP) Reviewed previous ER visits, H&P, lab testing. Concern for leaky indwelling Curry catheter. Currently on cefuroxime for UTI. She reports increased urine urgency but denies fever, chills, nausea, abdominal pain, flank pain, vomiting, diarrhea. Patient saw Dr. Garnica urologist at [place] today. Recommended come to ED for catheter replacement. Replaced 16 Uzbek indwelling Curry catheter here. Urinalysis positive for urinary tract infection. Likely chronic/contaminated. Microbiology from May susceptible to Macrobid. She states Macrobid has helped in the past. Positive for yeast. Will discharge with oral Diflucan and Macrobid. Recommend following up with your urologist. She has no other complaints. If worsening symptoms return back to ED . Impression Primary Impression: Urinary tract infection Additional Impression: Encounter for Curry catheter replacement Disposition: HOME, SELF-CARE Condition: Stable Departure-Patient Inst. Decision time for Depature: 12:58 Referrals: XENA VELASCO (PCP/Family) Primary Care Physician Patient Instructions: Urinary Tract Infection, Adult (DC) Add. Discharge Instructions: Follow-up with urologist All discharge instructions reviewed with patient and/or family. Voiced understanding. Scripts Fluconazole (Diflucan) 150 Mg Tablet 150 MG PO DAILY for 1 Day, #1 TAB Prov: CANDIDO VARGHESE 08/04/22 Nitrofurantoin Macrocrystal (Nitrofurantoin) 100 Mg Capsule 100 MG PO BID for 5 Days, #10 CAP Prov: CANDIDO VARGHESE 08/04/22 CANDIDO VARGHESE August 04, 2022 12:25
[2022-08-04] MEDS ORDERED: LIDOCAINE UROJET 2% GEL 10 ML PKG TOP ONE (12:30)
[2022-08-04 12:46] LABS: BILIRUBIN,URINE NEGATIVE (NEGATIVE); CLARITY,URINE CLEAR; COLOR,URINE YELLOW; GLUCOSE, URINE (UA) TRACE (NEGATIVE); KETONES,URINE NEGATIVE (NEGATIVE); LEUKOCYTE ESTERASE ,URINE 3+ (NEGATIVE); NITRITE,URINE NEGATIVE (NEGATIVE); PROTEIN,URINE NEGATIVE (NEGATIVE)
[2022-08-04 12:55] LABS: BACTERIA,URINE MODERATE /HPF
[2022-08-04 12:56] LABS: YEAST,URINE MODERATE /HPF
[2022-08-04] MEDS ORDERED: NITR100C PO (13:01)
[2022-08-04] MEDS ORDERED: FLUC150T PO (13:01)
== END 2022-08-04 13:11 | disposition home or self-care (01) ==
LOC: EDUNIT# 12:06 → ER 12:08
DX: T83.038A Leakage of other urinary catheter, initial encounter (principal); N39.0 Urinary tract infection, site not specified; Z79.2 Long term (current) use of antibiotics; Z68.42 Body mass index [BMI] 45.0-49.9, adult; Z28.310 Unvaccinated for COVID-19
CPT/HCPCS: 51702; 81000; 87077; 87088; 87186

== ENCOUNTER → 2022-08-07 | Outpatient (CLI) | payer OTHER ==
[~2022-08-07] MED LIST changes: +FLUC150T PO; +NITR100C PO
--- NOTE | 2022-08-07 15:05 | Diagnostic Imaging Report ---
PROCEDURE: CT abdomen and pelvis without contrast. TECHNIQUE: Multiple contiguous axial images were obtained through the abdomen and pelvis without the use of intravenous contrast. Auto Exposure Controls were utilized during the CT exam to meet ALARA standards for radiation dose reduction. INDICATION: Abdominal wound. This study is performed to evaluate for abscess. COMPARISON: Prior CT of 03/27/2015. FINDINGS: The lung bases are clear. The liver is unremarkable. The gallbladder is surgically absent. There is no biliary ductal dilatation. The pancreas and spleen are unremarkable. No adrenal mass is identified. The kidneys are without calculi or hydronephrosis. The aorta is calcified but nonaneurysmal. The small and large bowel loops are of normal caliber. There is no obstruction. There is diverticulosis of the descending and sigmoid colon but no evidence of acute diverticulitis. The appendix is unremarkable. There is no free fluid in the abdomen or pelvis. The bladder is decompressed by a Lorenzo catheter. The uterus appears to be surgically absent. No superficial or deep fluid collection or abscess is detected. IMPRESSION: 1. Uncomplicated diverticulosis. 2. No acute feature is identified. No fluid collection or abscess is identified. Dictated by: Dictated on workstation # [id number]
== END ==
LOC: RAD 13:45
PROVIDERS: ATTEND Nurse Practitioner
DX: K57.30 Diverticulosis of large intestine without perforation or abscess without bleeding (principal); S31.109A Unspecified open wound of abdominal wall, unspecified quadrant without penetration into peritoneal cavity, initial encounter
CPT/HCPCS: 74176

== ENCOUNTER 2022-08-25 12:41 | Emergency (ER) | payer OTHER ==
[~2022-08-25] VITALS: Ht 157 cm; Wt 113.4 kg
--- NOTE | 2022-08-25 13:05 | ED GU-Female ---
General Chief Complaint: - Reproductive Stated Complaint: CATHETER ISSUES Nursing Triage Note: PT STATES HER CATHETER IS LEAKING AND NEEDS CHANGED. STATES SHE HAS IT CHANGED HERE IN THE ER ABOUT ONCE A MONTH AND IT IS ABOUT DUE. WOUND ON RT LOWER ABD PT WAS JUST SEEN AT WOUND CARE FOR, NO ISSUES THERE Source: patient Exam Limitations: no limitations (CANDIDO VARGHESE) History of Present Illness Date Seen by Provider: Aug 25, 2022 Time Seen by Provider: 13:03 Initial Comments Patient Is a 51-year-old female presents ED for Knight catheter concerns. She states she is leaking around the urethra of the catheter. She states she has indwelling catheter secondary to urinary incontinence. She it was recommended come to ED for catheter replacement. She typically gets a catheter replaced every month. She denies fever, chills, abdominal pain, flank pain, body aches. She has no other complaints (CANDIDO VARGHESE) Allergies and Home Medications Allergies Coded Allergies: diphenhydramine (Verified Allergy, Unknown, Rash, 05/19/22) naproxen (Verified Allergy, Unknown, 05/01/19) can take ibuprofen Patient Home Medication List Home Medication List Reviewed: Yes (CANDIDO VARGHESE) Acetaminophen (Tylenol Extra Strength) 500 Mg Tablet, 1,000 MG PO BID, (Reported) Entered as Reported by: RICHIE MONTALVO on 03/27/15 1424 Albuterol Sulfate (Ventolin Hfa) 1 Puff Puff, 2 PUFF IH Q4H PRN for SHORTNESS OF BREATH, (Reported) Entered as Reported by: INOCENCIA BOYD on 05/31/19 1147 Atorvastatin Calcium (Atorvastatin Calcium) 80 Mg Tablet, 40 MG PO HS, (Reported) Entered as Reported by: INOCENCIA BOYD on 05/30/19 1535 Cefuroxime Axetil (Cefuroxime) 500 Mg Tablet, 500 MG PO BID Prescribed by: Renuka Casey on 07/14/22 1539 Cetirizine HCl (Cetirizine HCl) 10 Mg Tablet, 10 MG PO DAILY, (Reported) Entered as Reported by: LYDIA RICHARDSON on 02/15/17 1043 Cholecalciferol (Vitamin D3) (Vitamin D3) 25 Mcg Capsule, 25 MCG PO DAILY, (Reported) Entered as Reported by: INOCENCIA BOYD on 05/30/19 1535 Cyanocobalamin (Vitamin B-12) (Vitamin B12) 2,500 Mcg Tablet, 2,500 MCG PO DAILY, (Reported) Entered as Reported by: INOCENCIA BOYD on 05/31/19 1147 Fluconazole (Diflucan) 150 Mg Tablet, 150 MG PO DAILY Prescribed by: SELENE GUEVARA on 08/04/22 1301 Fluticasone Propionate (Flonase Allergy Relief) 9.9 Ml [place].susp, 2 SPRAY NS DAILY PRN for CONGESTION, (Reported) Entered as Reported by: LDYIA RICHARDSON on 02/15/17 1043 Ketorolac Tromethamine (Ketorolac Tromethamine) 10 Mg Tablet, 10 MG PO TID Prescribed by: KATT GREGORIO MD on 02/08/22 0929 Lisinopril (Lisinopril) 40 Mg Tablet, 20 MG PO DAILY, (Reported) Entered as Reported by: INOCENCIA BOYD on 05/30/19 1535 Nitrofurantoin Macrocrystal (Nitrofurantoin) 100 Mg Capsule, 100 MG PO BID Prescribed by: SELENE GUEVARA on 08/04/22 1301 Nitrofurantoin Monohyd/M-Cryst (Macrobid 100 mg Capsule) 100 Mg Capsule, 1 TAB PO BID Prescribed by: JADON GILL on 05/21/22 1633 Omeprazole (Omeprazole) 40 Mg Capsule.dr, 40 MG PO BID, (Reported) Entered as Reported by: LYDIA RICHARDSON on 02/15/17 1043 Ondansetron (Ondansetron Odt) 8 Mg Tab.rapdis, 8 MG SL Q6H PRN for NAUSEA/VOMITING Prescribed by: KATT GREGORIO MD on 02/08/22 0935 Phenylephrine HCl/[place] Butter (Preparation H Suppository) 1 Each Supp.rect, 1 EACH RC TID PRN for HEMMORRHOID DISCOMFORT, (Reported) Entered as Reported by: INOCENCIA BOYD on 05/31/19 1156 Prednisone (Prednisone) 10 Mg Tab.ds.pk, 10 MG PO DAILY Prescribed by: MICHELLE LEYVA on 06/02/19 1003 Sulfamethoxazole/Trimethoprim (Bactrim Ds Tablet) 1 Each Tablet, 1 EACH PO BID Prescribed by: CANDIDO MANUEL on 05/19/22 1732 Trospium Chloride (Trospium Chloride) 20 Mg Tablet, 20 MG PO BID, (Reported) Entered as Reported by: BUTCH WEBSTER on 04/22/19 1747 Review of Systems Review of Systems Constitutional: No chills, No diaphoresis EENTM: No ear pain, No blurred vision, No double vision Respiratory: No cough, No dyspnea on exertion Cardiovascular: No chest pain Gastrointestinal: No abdominal pain, No diarrhea, No nausea Genitourinary: denies burning, denies discharge, denies dysuria, denies frequency, denies flank pain Musculoskeletal: No back pain, No joint pain Skin: No change in color, No change in hair/nails (CANDIDO VARGHESE) All Other Systemes Reviewed Negative Unless Noted: Yes (CANDIDO VARGHESE) Past Xdqhgwa-Efskls-Fprkbm Hx Patient Social History Tobacco Use?: Yes Tobacco type used: Cigarettes Smoking Status: Current Everyday Smoker Substance use?: No Alcohol Use?: No (CANDIDO VARGHESE) Immunizations Up To Date Tetanus Booster (TDap): Unknown PED Vaccines UTD: Yes First/Initial COVID19 Vaccinat: N/A Second COVID19 Vaccination Dylan: N/A Third COVID19 Vaccination Date: N/A (CANDIDO VARGHESE) Seasonal Allergies Seasonal Allergies: Yes (CANIDDO VARGHESE) Past Medical History Surgery/Hospitalization HX: CHF, HYPERTENSION, HYSTERECTOMY, GALLBLADDER, COMPRESSION RELEASE ON BOTH ARMS, knight cathether, WOUND ON RLQ SEEING WOUND CARE FOR Surgeries: Yes (HYST/BSO 2000;INEZ; BILAT CARPAL TUNNEL) Gallbladder, Hysterectomy, Oophorectomy, Orthopedic Respiratory: Yes (SMOKES > 1 PPD) Pneumonia, Chronic Bronchitis, COPD Cardiac: Yes (MURMUR SINCE ) Chronic Edema/Swelling, High Cholesterol, Hypertension Neurological: Yes Headaches /Migraines Reproductive Disorders: Yes LOC[employer] History: Hysterectomy Sexually Transmitted Disease: Yes (HX HERPES) HIV/AIDS: No Genitourinary: Yes Bladder Infection Gastrointestinal: Yes (S/P INEZ) Gastroesophageal Reflux, Gall Bladder Disease Musculoskeletal: Yes (S/P BILAT CARPAL TUNNEL REPAIR) Arthritis Endocrine: Yes (OBESITY) HEENT: No Loss of Vision: Bilateral Cancer: Yes Ovarian Did You Recieve Any Treatments: Yes What Type of Treatment Did You: Surgical Intervention Psychosocial: Yes Anxiety Integumentary: No Blood Disorders: No Adverse Reaction/Blood Tranf: No (N/A) (CANDIDO VARGHESE) Family Medical History Heart Disease, Cancer, Diabetes (CANDIDO VARGHESE) Physical Exam Vital Signs Vital Signs - First Documented 08/25/22 12:49 Temp 37.2 Pulse 92 Resp 20 B/P (MAP) 146/98 (114) Pulse Ox 93 O2 Delivery Room Air (REBEL MARCIAL MD) Vital Signs Capillary Refill : Less Than 3 Seconds (CANDIDO VARGHESE) Height, Weight, BMI Height: 5'6.00" Weight: 260lbs. 0.0oz. [id number]; 46.00 BMI Method:Estimated General Appearance: WD/WN, no apparent distress HEENT: PERRL/EOMI, normal ENT inspection, TMs normal, pharynx normal Neck: non-tender, full range of motion, supple, normal inspection Cardiovascular: regular rate, rhythm, no edema, no gallop, no JVD Respiratory: chest non-tender, lungs clear, normal breath sounds, no respiratory distress, no accessory muscle use Gastrointestinal: normal bowel sounds, non tender, soft, no organomegaly Back: normal inspection, no CVA tenderness Neurologic/Psychiatric: chief engineer II-XII nml as tested, no motor/sensory deficits, alert, normal mood/affect, oriented x 3 (CANDIDO VARGHESE) Progress/Results/Core Measures Suspected Sepsis SIRS Temperature: Pulse: 92 Respiratory Rate: 20 Blood Pressure 146 /98 Mean: 114 (CANDIDO VARGHESE) Results/Orders Lab Results Laboratory Tests Test 08/25/22 13:16 Range/Units Urine Color YELLOW Urine Clarity SL CLOUDY Urine pH 6.0 5-9 Urine Specific [place] <=1.005 1.016-1.022 Urine Protein NEGATIVE NEGATIVE Urine Glucose (UA) TRACE H NEGATIVE Urine Ketones NEGATIVE NEGATIVE Urine Nitrite NEGATIVE NEGATIVE Urine Bilirubin NEGATIVE NEGATIVE Urine Urobilinogen 0.2 < = 1.0 MG/DL Urine Leukocyte Esterase 2+ H NEGATIVE Urine RBC (Auto) TRACE-L H NEGATIVE Urine RBC RARE /HPF Urine WBC 5-10 H /HPF Urine Squamous Epithelial Cells RARE /HPF Urine Crystals NONE /LPF Urine Bacteria NEGATIVE /HPF Urine Casts NONE /LPF Urine Mucus NEGATIVE /LPF Urine Culture Indicated YES (REBEL MARCIAL MD) Vital Signs/I&O Capillary Refill : Less Than 3 Seconds (CANDIDO VARGHESE) Blood Pressure Mean: 114 Departure Communication (PCP) Reviewed previous ER visits, H&P, lab testing. Differential diagnosis of Knight catheter dysfunction, UTI. Patient has no urinary symptoms fever, chills, body aches. Leakage around her urethra. She is producing urine in her catheter bag. Urine appears clear was requesting a urinalysis as she recently finished Macrobid. Urinalysis positive for trace leukocytes white blood cells 5-10. No strong evidence of urinary tract infection. Likely colonization and chronic. Discussed waiting for urine culture before treating. She may need to be on an tibiotic chronically. She states she does follow-up with her urologist this week which I recommend discussing these frequent urinary tract infections. She states she has been on several antibiotics for the past few months due to UTI.. We will call if culture returns positive. Catheter replaced with a 16 [place]. She will be safely discharged at this time. No further evaluation needed. She does not appear toxic or septic (CANDIDO VARGHESE) Impression Primary Impression: Encounter for Knight catheter replacement Disposition: 01 HOME, SELF-CARE Condition: Stable Departure-Patient Inst. Decision time for Depature: 13:05 (CANDIDO VARGHESE) Referrals: XENA VELASCO (PCP/Family) Primary Care Physician Patient Instructions: Urinary Incontinence (DC) ATTENDING PHYSICIAN NOTE: I was physically present in the Emergency Department during the evaluation and care of this patient as attending physician, and I was available for consultation and assistance. I did not personally interview or examine this patient, nor was I otherwise directly involved in the care or decision making for this patient. (REBEL MARCIAL MD) CANDIDO VARGHESE Aug 25, 2022 13:05 REBEL MARCIAL MD Aug 26, 2022 08:41
[2022-08-25] MEDS ORDERED: LIDOCAINE UROJET 2% GEL 10 ML PKG TOP ONE (13:15)
[2022-08-25 13:28] LABS: BILIRUBIN,URINE NEGATIVE (NEGATIVE); CLARITY,URINE SL CLOUDY; COLOR,URINE YELLOW; GLUCOSE, URINE (UA) TRACE (NEGATIVE); KETONES,URINE NEGATIVE (NEGATIVE); LEUKOCYTE ESTERASE ,URINE 2+ (NEGATIVE); NITRITE,URINE NEGATIVE (NEGATIVE); PROTEIN,URINE NEGATIVE (NEGATIVE)
[2022-08-25 13:37] LABS: BACTERIA,URINE NEGATIVE /HPF; RBC,URINE RARE /HPF; SQUAMOUS EPITHELIAL CELL,UR RARE /HPF
[2022-08-25 13:48] VITALS: BP 146/98
== END 2022-08-25 13:47 | disposition home or self-care (01) ==
LOC: EDUNIT# 12:41 → ER 12:43
DX: T83.038A Leakage of other urinary catheter, initial encounter (principal); N39.0 Urinary tract infection, site not specified; E66.9 Obesity, unspecified; F17.210 Nicotine dependence, cigarettes, uncomplicated; Z68.42 Body mass index [BMI] 45.0-49.9, adult
CPT/HCPCS: 51702; 81000; 87077; 87088

== ENCOUNTER → 2022-08-25 | Outpatient (CLI) | payer OTHER | LOC: WOUNDCARE 12:17 | PROVIDERS: ATTEND Family Medicine | DX: L98.492 Non-pressure chronic ulcer of skin of other sites with fat layer exposed (principal); E66.01 Morbid (severe) obesity due to excess calories; F17.218 Nicotine dependence, cigarettes, with other nicotine-induced disorders; L88 Pyoderma gangrenosum | CPT/HCPCS: 11042 ==

== ENCOUNTER → 2022-09-07 | Outpatient (CLI) | payer OTHER | LOC: WOUNDCARE 13:41 | PROVIDERS: ATTEND Family Medicine | DX: L88 Pyoderma gangrenosum (principal); E66.01 Morbid (severe) obesity due to excess calories; L98.492 Non-pressure chronic ulcer of skin of other sites with fat layer exposed; F17.218 Nicotine dependence, cigarettes, with other nicotine-induced disorders | CPT/HCPCS: 11042 ==

== ENCOUNTER → 2022-09-29 | Outpatient (CLI) | payer OTHER | LOC: WOUNDCARE 12:21 | PROVIDERS: ATTEND Family Medicine | DX: L98.492 Non-pressure chronic ulcer of skin of other sites with fat layer exposed (principal); E66.01 Morbid (severe) obesity due to excess calories; L88 Pyoderma gangrenosum; I96 Gangrene, not elsewhere classified; F17.218 Nicotine dependence, cigarettes, with other nicotine-induced disorders | CPT/HCPCS: 99213 ==

== ENCOUNTER → 2022-10-13 | Outpatient (CLI) | payer OTHER | LOC: WOUNDCARE 12:27 | PROVIDERS: ATTEND Family Medicine | DX: L88 Pyoderma gangrenosum (principal); E66.01 Morbid (severe) obesity due to excess calories; L98.492 Non-pressure chronic ulcer of skin of other sites with fat layer exposed; A49.9 Bacterial infection, unspecified | CPT/HCPCS: 11042; 87070; 87077; 87186; 87205 ==

== ENCOUNTER → 2022-10-20 | Outpatient (CLI) | payer OTHER | LOC: WOUNDCARE 12:32 | PROVIDERS: ATTEND Family Medicine | DX: L98.492 Non-pressure chronic ulcer of skin of other sites with fat layer exposed (principal); E66.01 Morbid (severe) obesity due to excess calories; F17.218 Nicotine dependence, cigarettes, with other nicotine-induced disorders; L88 Pyoderma gangrenosum; A49.9 Bacterial infection, unspecified; B95.62 Methicillin resistant Staphylococcus aureus infection as the cause of diseases classified elsewhere; I96 Gangrene, not elsewhere classified | CPT/HCPCS: 99212 ==

== ENCOUNTER → 2022-10-26 | Outpatient (CLI) | payer OTHER | LOC: WOUNDCARE 12:56 | PROVIDERS: ATTEND Family Medicine | DX: L98.492 Non-pressure chronic ulcer of skin of other sites with fat layer exposed (principal); E66.01 Morbid (severe) obesity due to excess calories; F17.218 Nicotine dependence, cigarettes, with other nicotine-induced disorders; L88 Pyoderma gangrenosum; A49.9 Bacterial infection, unspecified; A49.01 Methicillin susceptible Staphylococcus aureus infection, unspecified site | CPT/HCPCS: 97605 ==

== ENCOUNTER → 2022-11-02 | Outpatient (CLI) | payer OTHER | LOC: WOUNDCARE 12:47 | PROVIDERS: ATTEND Family Medicine | DX: L98.492 Non-pressure chronic ulcer of skin of other sites with fat layer exposed (principal); L88 Pyoderma gangrenosum; E66.01 Morbid (severe) obesity due to excess calories; F17.218 Nicotine dependence, cigarettes, with other nicotine-induced disorders; A49.01 Methicillin susceptible Staphylococcus aureus infection, unspecified site; A49.9 Bacterial infection, unspecified; Z68.42 Body mass index [BMI] 45.0-49.9, adult | CPT/HCPCS: 97605 ==

== ENCOUNTER → 2022-11-11 | Outpatient (CLI) | payer OTHER | LOC: WOUNDCARE 14:03 | PROVIDERS: ATTEND Family Medicine | DX: L98.492 Non-pressure chronic ulcer of skin of other sites with fat layer exposed (principal); L88 Pyoderma gangrenosum; E66.01 Morbid (severe) obesity due to excess calories; F17.218 Nicotine dependence, cigarettes, with other nicotine-induced disorders; Z68.42 Body mass index [BMI] 45.0-49.9, adult | CPT/HCPCS: 97605 ==

== ENCOUNTER → 2022-11-16 | Outpatient (CLI) | payer OTHER | LOC: WOUNDCARE 12:15 | PROVIDERS: ATTEND Family Medicine | DX: L98.492 Non-pressure chronic ulcer of skin of other sites with fat layer exposed (principal); E66.01 Morbid (severe) obesity due to excess calories; F17.218 Nicotine dependence, cigarettes, with other nicotine-induced disorders; L88 Pyoderma gangrenosum | CPT/HCPCS: 97605 ==

== ENCOUNTER → 2022-11-23 | Outpatient (CLI) | payer OTHER | LOC: WOUNDCARE 12:53 | PROVIDERS: ATTEND Family Medicine | DX: E66.01 Morbid (severe) obesity due to excess calories (principal); F17.218 Nicotine dependence, cigarettes, with other nicotine-induced disorders; L88 Pyoderma gangrenosum | CPT/HCPCS: 99212 ==

== ENCOUNTER → 2022-12-14 | Outpatient (CLI) | payer OTHER | LOC: WOUNDCARE 12:50 | PROVIDERS: ATTEND Family Medicine | DX: L98.492 Non-pressure chronic ulcer of skin of other sites with fat layer exposed (principal); E66.01 Morbid (severe) obesity due to excess calories; F17.210 Nicotine dependence, cigarettes, uncomplicated; L88 Pyoderma gangrenosum | CPT/HCPCS: 15271 ==

== ENCOUNTER → 2022-12-21 | Outpatient (CLI) | payer OTHER | LOC: WOUNDCARE 12:53 | PROVIDERS: ATTEND Family Medicine | DX: L98.492 Non-pressure chronic ulcer of skin of other sites with fat layer exposed (principal); E66.01 Morbid (severe) obesity due to excess calories; L88 Pyoderma gangrenosum; F17.218 Nicotine dependence, cigarettes, with other nicotine-induced disorders | CPT/HCPCS: 15271; 99212 ==

== ENCOUNTER → 2022-12-28 | Outpatient (CLI) | payer OTHER | LOC: WOUNDCARE 12:38 | PROVIDERS: ATTEND Family Medicine | DX: L98.492 Non-pressure chronic ulcer of skin of other sites with fat layer exposed (principal); E66.01 Morbid (severe) obesity due to excess calories; F17.218 Nicotine dependence, cigarettes, with other nicotine-induced disorders; L88 Pyoderma gangrenosum | CPT/HCPCS: 15271 ==

== ENCOUNTER → 2023-01-04 | Outpatient (CLI) | payer OTHER | LOC: WOUNDCARE 12:27 | PROVIDERS: ATTEND Family Medicine | DX: L98.492 Non-pressure chronic ulcer of skin of other sites with fat layer exposed (principal); E66.01 Morbid (severe) obesity due to excess calories; F17.218 Nicotine dependence, cigarettes, with other nicotine-induced disorders; L88 Pyoderma gangrenosum | CPT/HCPCS: 15271 ==

== ENCOUNTER → 2023-01-11 | Outpatient (CLI) | payer OTHER | LOC: WOUNDCARE 12:38 | PROVIDERS: ATTEND Family Medicine | DX: L98.492 Non-pressure chronic ulcer of skin of other sites with fat layer exposed (principal); E66.01 Morbid (severe) obesity due to excess calories; F17.218 Nicotine dependence, cigarettes, with other nicotine-induced disorders; L88 Pyoderma gangrenosum | CPT/HCPCS: 99212 ==